=== PATIENT | female | born 1955 | race Caucasian/White ===

== ENCOUNTER → 2017-01-31 | Outpatient (CLI) | payer OTHER ==
[~2017-01-31] MED LIST: ALDACTONE PO; ALDACTONE25 MG PO; ASPIRIN81 M2 PO; BUMETANIDE2 M1 PO; BUMEX2 MG PO; CALCIUM STOOL240 M1 PO; CARDIZEM CD240 M2 PO; CARTIA XT240 M1 PO; DESENEX45 G1 EXT; DILTIAZEM 24HR240 M1 PO; DILTIAZEM 24HR240 M2 PO; DOXYCYCLINE HYC50 M1 PO; EFFEXOR PO; FERRO-TIME325 MG PO; FLAGYL250 M1 PO; FLEXERIL10 MG PO; GLYXAMBI 10 MG1 EACH; HUMULIN R100 U/ML SUBQ; HUMULIN R500 U/ML SUBQ; LASIX PO; LEVAQUIN750 M1 PO; LEVEMIR FL100 UNIT/1 SUBQ; LEVEMIR100 UNITS/ SUBQ; LOPRESSOR PO; MACROBID100 MG PO; METOLAZONE5 MG PO; METOPROLOL SUCC25 MG PO; METOPROLOL TART25 MG PO; NEURONTIN100 MG PO; OMEPRAZOLE20 M2 PO; OXYCODON HCL-1 UDTAB PO; OXYCODONE-ACET1 EAC1 PO; OXYMORPHONE HCL10 M1 PO; PATIENT'S PHARMACY; PERCOCET 10/3251 TAB PO; PRILOSEC2.5 MG PO; PRILOSEC20 M1 PO; PROTONIX PO; REGLAN10 MG; REGLAN10 MG PO; SEROQUEL PO; STOOL SOFTENER1 EAC1 PO; TRADJENTA5 MG PO; TYLENOL325 M1 PO; VENLAFAXINE HC150 M1 PO; VENLAFAXINE HC150 MG PO; VENLAFAXINE HCL75 MG PO; ZOFRANODT PO
--- NOTE | ~2017-01-31 | MY11 ---
[facility] A Service of [facility] & [facility] RADIOLOGY TEXT RESULTS PATIENT: DAISY MILES LOCATION: [facility] : [birth year] UNIT #: [id number] AGE: [address]: Irina Mclean MD SEX: F ORDER DR: [id number] [address] [address] [id number] MR#: [id number] Acc #: [id number] NAME: DAISY MILES : 1955 SEX: F STUDY DATE/TIME: 01/31/2017 10:53 UNIT: [facility] ROOM: STUDY DESCRIPTION: MY Mammogram Screening Dig Quan Attending Physician: Irina Mclean M.D. Referring Physician: Irina Mclean M.D. Ordering Physician: Irina Mclean M.D. Primary Care Physician: Irina Mclean M.D. MEDICAL IMAGING REPORT This report is preliminary unless electronic signature is present. EXAM Bilateral digital screening mammogram with CAD 01/31/2017 INDICATIONS 61-year-old female for routine screening. No reported problems and no personal or family history of breast cancer. No surgeries. CC and MLO views of the breasts were obtained and reviewed with an FDA approved CAD device. COMPARISON STUDIES The patient reports a prior mammogram years ago at the [facility] but that facility closed many years ago. No comparisons are available. This will serve as a new baseline. FINDINGS Breast parenchyma is composed of scattered fibroglandular densities. The pattern is symmetric. A cleavage view was also performed. There is no dominant nodule or mass in either breast. No suspicious cluster of microcalcifications. Faint benign-appearing calcifications are present. Tiny calcified fibroadenoma in the 9 o'clock position of the right breast. Tortuous vessels are present in the left greater than right breast, 1 of which simulates a pseudo nodule on the left. Benign axillary nodes are present bilaterally. A repeat screening mammogram is recommended in 1 year. IMPRESSION Benign screening mammogram, 1 year followup recommended. BIRADS II Patients over the age of 40 are entered into a reminder system with target due date for the next mammogram. A result letter will also be sent to the patient. [facility] A Service of [facility] & [facility] RADIOLOGY TEXT RESULTS PATIENT: DAISY MILES LOCATION: [facility] : [birth year] UNIT #: [id number] AGE: [address]: Irina Mclean MD SEX: F ORDER DR: BIRADS: 2 - Benign finding Dictated by... Oneal Cole M.D. THIS IS AN ELECTRONICALLY VERIFIED REPORT Oneal Cole M.D. at 01/31/2017 4:15 PM Ilsa TD: 01/31/2017 16:06 JOB #: [id number] MEDICAL IMAGING REPORT
== END | disposition home or self-care (01) ==
LOC: SMAM 10:15
DX: Z12.31 Encounter for screening mammogram for malignant neoplasm of breast (principal)
CPT/HCPCS: G0202

== ENCOUNTER 2017-03-14 17:27 | Inpatient (IN) | payer OTHER ==
--- NOTE | ~2017-03-14 | HP ---
Unit #: [id number] #: [id number] Patient: DAISY MILES [id number] [place], [place] [address] [id number] I MR#: [id number] NAME: DAISY MILES. ROOM: [facility] Age: 62 Sex: F Admission Date: 03/14/2017 : 1955 Attending Physician: Shabana Quigley M.D. Primary Care Physician: Irina Mclean M.D. HISTORY AND PHYSICAL CHIEF COMPLAINT Symptomatic anemia. HISTORY OF PRESENT ILLNESS The patient is a 62-year-old female with a past medical history of esophageal varices, probable nonalcoholic steatohepatitis, diabetes, coronary artery disease, CHF, hypertension, seizures, meningioma, pulmonary hypertension, COPD, gastroparesis, and tobacco abuse, who was admitted from the primary care physician's office for evaluation of the above. The patient states that she has had a one-week history of increasing generalized weakness. She states that she has felt intermittently dizzy. She states that she has not fallen, nor has she had any syncopal episode. She denies any chest pain and no shortness of breath. She states that she has constipation. Her last bowel movement was this morning. She has noticed that her stool has been intermittently black for the past couple of days. She also reports abdominal pain in the upper abdomen that she describes as "burning." It has been intermittent in nature. She denies any vomiting. The patient saw her primary care physician today. Hemoglobin was noted to be 10. It was 12.6 on January 26, 2017, per my discussion with the primary care physician's office. She was sent to [facility] for admission and further workup. PAST MEDICAL HISTORY 1. Admission to [facility] June 27-2015, for acute blood loss anemia. She underwent EGD during that admission that showed early varices and hypertensive gastropathy. 2. Esophageal varices thought to be secondary to nonalcoholic steatohepatitis. The patient has seen Dr. Harry in the past. 3. Coronary artery disease followed by Dr. Wilder. 4. Congestive heart failure with unknown ejection fraction. 5. Hypertension. 6. Diabetes. 7. Seizure following meningioma removal. The patient denies any seizures for the past more than 10 years. She is not on antiepileptic medication. 8. Meningioma, status post excision. 9. Pulmonary hypertension. 10. Chronic obstructive pulmonary disease with continued tobacco abuse. PAST SURGICAL HISTORY Unit #: [id number] #: [id number] Patient: DAISY MILES 1. Cardiac catheterization. 2. EGD and colonoscopy. The most recent EGD was in June 2016 and showed early varices and hypertensive gastropathy. 3. Appendectomy. 4. Cholecystectomy. 5. Right knee replacement. 6. Meningioma removal. SOCIAL HISTORY The patient lives with her mother and sister. She continues to smoke a pack of cigarettes daily. She denies alcohol use. Her code status is a Full Code. FAMILY HISTORY Notable for her mother having hypertension. ALLERGIES Cephalosporin and latex. HOME MEDICATIONS Per the Discharge Summary from June 2016: 1. Iron 325 daily. 2. Metoclopramide 10 mg t.i.d. 3. Aspirin 81 mg daily. 4. Spironolactone 25 mg daily. 5. Protonix 40 mg twice daily. 6. Flexeril 10 mg at bedtime. 7. Venlafaxine 150 mg b.i.d. 8. Diltiazem 240 mg daily. 9. Metoprolol 25 mg b.i.d. 10. Bumex 2 mg b.i.d. 11. Metolazone 5 mg daily. 12. Insulin. The patient states that she was on Humulin R 30 units with meals. The patient states that she has not been taking insulin for approximately a year. Home medications will need to be reviewed and verified. REVIEW OF SYSTEMS A complete review of systems is negative except as indicated in the History of Present Illness. The patient states that she does not routinely check her blood sugars. She is no longer seeing Dr. Osuna. She stopped taking her insulin about a year ago. She states that her weight fluctuates between 230 and 250 pounds. She has had intermittent swelling of the legs. PHYSICAL EXAMINATION VITAL SIGNS: Temperature 97.5, blood pressure 152/93, and respirations 18. GENERAL: Patient is a female who is awake, alert, and in no acute distress. HEENT: Head is atraumatic. Mucous membranes are moist. NECK: Supple. Trachea is midline. CARDIOVASCULAR: Regular rate and rhythm. LUNGS: Clear to auscultation bilaterally with no increased work of breathing. ABDOMEN: Soft. She is mildly tender to palpation in the epigastric area. Bowel sounds are present in all four quadrants. EXTREMITIES: Nontender with no pedal edema. Unit #: [id number] #: [id number] Patient: DAISY MILES NEUROLOGIC: Patient is awake and alert. She is oriented x3. She follows commands. PSYCHIATRIC: Mood and affect are normal. Patient is cooperative. SKIN: Skin of examined areas is warm and dry. DIAGNOSTIC STUDIES LABORATORY: Hemoglobin per my conversation with the primary care physician's office is 10. Labs here are pending. She did have an Accu-Chek that was 533. ASSESSMENT The patient is a 62-year-old female with: 1. Symptomatic anemia. The patient's hemoglobin was 10 in the primary care physician's office and had dropped from 12.6 on January 26 per my discussion with them. 2. Gastrointestinal bleed. 3. History of esophageal varices with last EGD in June 2016 showing early varices and hypertensive gastropathy. 4. Likely nonalcoholic steatohepatitis. 5. Uncontrolled diabetes with an Accu-Chek of 533. The patient has not been taking insulin for the past year, nor has she been checking her blood sugars at home. 6. Weight loss. 7. History of coronary artery disease. 8. Congestive heart failure with unknown ejection fraction. 9. Hypertension. 10. History of seizures, not on antiepileptic medication. 11. Meningioma, status post excision. 12. Pulmonary hypertension. 13. Chronic obstructive pulmonary disease with continued tobacco abuse. 14. Gastroparesis. PLAN 1. Admit for observation to intermediate level. 2. Clear liquid diet. 3. Normal saline at 75 mL/hour. 4. Protonix 80 mg IV x1, followed by Protonix drip at 8 mg/hour. 5. Octreotide 50 mcg IV x1, followed by octreotide drip at 50 mcg/hour. 6. Hemoccult stool. 7. Stat labs including CBC, comprehensive metabolic panel, and INR. 8. Hemoglobin and hematocrit q.6 hours. Will plan to transfuse for hemoglobin less than 8 due to history of coronary artery disease. 9. Hemoglobin A1c. 10. Medium-dose sliding scale insulin. 11. Levemir 10 units subcutaneous daily with first dose now. 12. Accu-Cheks. 13. TSH. 14. EKG and cardiac enzymes. 15. Supplemental oxygen. 16. P.r.n. DuoNebs. 17. Check urinalysis. 18. Consult Dr. Harry regarding symptomatic anemia and history of esophageal varices. 19. P.r.n. Zofran. 20. SCDs for DVT prophylaxis. 21. Repeat labs in the morning. 22. Regarding code status, the patient is a Full Code. 1. Unit #: [id number] #: [id number] Patient: DAISY MILES Dictated by Nazanin Donovan/alie TD: 03/14/2017 19:50 JOB #: [id number] HISTORY AND PHYSICAL Page 1 of 1 X Shabana Quigley MD HISTORY AND PHYSICAL
--- NOTE | ~2017-03-14 | CO ---
Unit #: [id number] #: [id number] Patient: DAISY MILES [id number] [address] [id number] I MR#: [id number] NAME: DAISY MILES. ROOM: [facility] Age: 62 Sex: F Admission Date: 03/14/2017 : 1955 Attending Physician: Joaquina Dubois M.D. Primary Care Physician: Irina Mclean M.D. Consultation Date: 03/15/2017 CONSULTATION REPORT REASON FOR CONSULTATION Anemia of GI blood loss in a patient with underlying history of PRUETT related cirrhosis and esophageal varices. HISTORY OF PRESENT ILLNESS Ms. Miles is a very pleasant 62-year-old white woman with a previous history of esophageal varices secondary to cirrhosis from PRUETT. She also has a background history of diabetes, congestive heart failure, coronary artery disease, chronic obstructive pulmonary disease and seizure disorder. She was admitted from Dr. Mclean' office for symptomatic anemia. She reports profound fatigue along with nausea, vomiting and upper abdominal pain for the past five days. She has had intermittent black stools without hematemesis or hematochezia. Her hemoglobin dropped from 11.9 to 7.5. PAST MEDICAL HISTORY 1. Type 2 diabetes. 2. Hypertension. 3. Congestive heart failure. 4. Coronary artery disease. 5. Seizure disorder after removal of meningioma. 6. Pulmonary hypertension. 7. Chronic respiratory failure on 2 liters nasal cannula home oxygen. 8. Chronic obstructive pulmonary disease. 9. Esophageal varices. PAST SURGICAL HISTORY 1. Appendectomy. 2. Cholecystectomy. 3. Right total knee replacement. 4. Removal or meningioma. 5. Heart catheterization. SOCIAL HISTORY The patient smokes a pack of cigarettes daily. She does not use alcohol. FAMILY HISTORY Significant for her mother having had hypertension. No family history of colon or pancreatic cancer or other disease. ALLERGIES Latex and cephalosporins. HOME MEDICATIONS Unit #: [id number] #: [id number] Patient: DAISY MILES Reviewed and included 1. Coumadin. 2. Aldactone. 3. Venlafaxine. 4. Reglan. 5. Metolazone. 6. Aspirin. 7. Metoprolol. 8. Omeprazole. 9. Flaxseed. 10. Bumex. REVIEW OF SYSTEMS Detailed review of organ systems does not reveal any recent weight loss. No history of fever, chills or rigors. Seizure. Chest pain or syncope. There is a history of profound fatigue. No history of cough, expectoration or hemoptysis. No history of dysuria, hematuria or history of focal seizures or extremity weakness. PHYSICAL EXAMINATION GENERAL: Awake, alert and oriented. Obese. VITALS: Stable with temperature 98.4, pulse 143/75. She has basal sounds tachycardia at 112, respiratory rate 18. HEENT: Moderate pallor. No icterus or lymphadenopathy. LUNGS: Normal breath sounds. Good air entry. HEART: Normal heart sounds. No murmurs auscultated. ABDOMEN: Soft and nontender. Liver and spleen are not palpable. Bowel sounds are normal. EXTREMITIES: Grade 1 pitting peripheral edema. DIAGNOSTIC STUDIES LABORATORY: Hemoglobin has dropped from baseline of 11.9 to 7.5, BUN 17, creatinine 0.4, albumin 2.5. LFTs are normal. INR is 1.1. ASSESSMENT Patient with significant anemia, most likely of GI blood loss. Underlying history of varices with PRUETT related to cirrhosis and history of multiple cardiorespiratory comorbid problems that are enumerated under the past medical history. PLAN The patient will be transfused two units of packed cells and will check her stool studies for occult blood. Repeat CBC, CMP, amylase and lipase in the morning along with serum iron studies. She will be kept n.p.o. after midnight and will undergo upper endoscopy first thing in the morning. The pros and cons of the procedure and potential risks and complications were discussed with the patient and she was reassured. Thank you for asking me to see this pleasant patient in consultation. Dictated by... Nazanin Jurado/cruzito TD: 04/19/2017 08:21 Unit #: [id number] #: [id number] Patient: DAISY MILES JOB #: [id number] CC: Nazanin Donovan M.D. CONSULTATION REPORT Page 1 of 1 X Daniel Harry MD X CONSULTATION REPORT
--- NOTE | ~2017-03-14 | A ---
[facility] Nutrition Therapy DATE: 03/15/17 Patient: DAISY MILES Physician: IRENE Address: [address] [facility] Room/Bed: [address] [place] [address], Zip: [place] [address] Admit Date: 03/14/17 Date of : [birth year] Height: 5 4 Weight: 234 106.2 NUTRITIONAL ASSESSMENT: REASON: CONSULT RE: WT FLUCTUATES 232-250# AND DIABETIC, ALSO 4 PTS NUTRITION SCREEN RISK RE: 18# WEIGHT LOSS AND EATING POORLY, AND FOR HIGH BMI DOCUMENTATION 62 yo female admitted for symptomatic anemia PMH: EGD in 2016 revealing early varices and hypertensive gastrophy, esophageal varices, probable PRUETT cirrhosis, DM, CAD, CHF, HTN, seizures, COPD, pulmonary HTN, gastroparesis, cholecystectomy Anthropometrics: Ht: 64" Wt: 106.2 kg BMI: 40.2 Labs: Gluc 231 Creat 0.4 Ca++ 7.9 Alb 2.5 Accuchecks 232 HgbA1C 12.2 Meds: Levemir, Colace, lopressor, zofran, novolog, protonix, bumetanide, NaCl, D5%, reglan I/O & Bowel function: 03/13, n/v Skin Integrity: Scar left knee Redness/rash under breasts/ abdominal folds Edema: None noted Diet: Clear liquid Assessment: Chart reviewed, events noted. 62 yo female admitted for GI bleed/ symptomatic anemia with h/o esophageal varices, PRUETT cirrhosis, DM, CHF with other notable disease states as listed above. RD spoke with the pt at bedside. Pt stated that she was very nauseated, and was not able to provide much information due to this. Pt was able to report that her weight fluctuates between 232-250#, and that she has lost weight recently (18# noted in RD consult). Pt also reported very minimal intake of clear liquids. Pt was unsure whether her weight fluctuation is due to fluid, which could be the case due to her PMH, PRUETT cirrhosis, CHF; however, no edema was noted in admission/ shift assessments. RD briefly explained the importance of adequate nutrition and diet related to her PMH/ Dx. Pt preferred that RD return for diet education, as she grabbed the emesis bag and appeared very nauseated. RD left information regarding cirrhosis/ DM/ gastroparesis diets. RD will order Ensure clear for supplemental nutrition and follow up. Dx: Inadequate protein-energy intake RT clinical condition, PMH AEB clear liquid diet, n/v. Intervention: [facility] Nutrition Therapy DATE: 03/15/17 Patient: DAISY MILES Physician: IRENE Address: [address] [place] [address] Room/Bed: [address] [place] [address], Zip: [place] [address] Admit Date: 03/14/17 Date of : [birth year] Height: 5 4 Weight: 234 106.2 1. Clear liquid diet- advance as tolerated 2. Ensure Clear BID Monitoring, Evaluation and Goals: 1. Oral intake; tolerate >50-75% of meals and supplements 2. Labs; WNL: glucose, electrolytes 3. Weight; preserve lean body mass, prevent unintentional weight loss 4. GI; promote regular GI function Recommendations: 1. Continue clear liquid diet as tolerated. 2. Ensure clear BID for supplemental nutrition while the pt remains on clear liquid diet. 3. Once medically feasible if the pt continually tolerates clear liquids without symptoms of intolerance, advance to a low fat/ 2 gram sodium / consistent carbohydrate diet with 6 small meals (small, frequent meals). 4. Appreciate staff encouraging adequate PO intake as needed. Pt is at moderate nutritional risk. RD will follow hospital course. Respectfully, RAFA MANN RD, LD Food and Nutritional Services [facility] cc: client file
--- NOTE | ~2017-03-14 | OR ---
Unit #: [id number] #: [id number] Patient: DAISY MILES [id number] [address] [place], [place] [address] [id number] I MR#: [id number] NAME: DAISY MILES ROOM: [facility] Date of Procedure: 03/16/2017 Admission Date: 03/14/2017 Surgeon: Daniel Harry M.D. : 1955 Attending Physician: Joaquina Dubois M.D. Primary Care Physician: Irina Mclean M.D. OPERATIVE REPORT PRIMARY CARE PHYSICIAN Irina Mclean M.D. PREOPERATIVE DIAGNOSES Gastrointestinal bleed, anemia of acute gastrointestinal blood loss. PROCEDURES PERFORMED Upper gastrointestinal endoscopy and esophageal variceal band ligation. POSTOPERATIVE DIAGNOSES 1. The patient had esophageal varices with stigmata of recent bleed in the form of hemocytoblastic spots. The largest of these varices was then treated using rubber band ligation. 2. There were changes of portal hypertensive gastropathy involving the fundic mucosa. 3. Rest of the examination up to third part of duodenum was normal. There were no active bleeding noted in the entire upper gastrointestinal tract. RECOMMENDATIONS 1. Discontinue intravenous Protonix infusion and octreotide infusions. 2. The patient will be started on 1800 calorie CCD diet. 3. CBC and CMP in a.m. labs. 4. She can be discharged home tomorrow morning. SEDATION USED MAC. DESCRIPTION OF PROCEDURE Following detailed explanation of potential risks and complications of an upper endoscopy, namely perforation, bleeding, complication related to sedation, the patient was brought to GI lab and laid in the left lateral decubitus position. Lubricated tip of the Olympus video upper endoscope was passed through the bite block into the proximal esophagus under direct vision. The entire esophageal mucosa was examined. The patient was noted to have esophageal varices. One of these was larger than the others and had also hemocytoblastic or cowan-red spots just at the GE junction. The scope was then advanced into the gastric cavity and the latter was insufflated. Mucosa of the fundus, body, and antrum examined and changes of portal hypertensive gastropathy were seen in the fundic mucosa. The prepyloric antral area appeared normal. Pylorus was intubated with visualization of normal duodenal bulb and second and third part of the Unit #: [id number] #: [id number] Patient: DAISY MILES duodenum. Upon withdrawal and retroflexion, incisura, cardia, and greater curve were examined and no additional findings noted. The scope was then withdrawn in the distal esophagus. The entire esophageal mucosa was examined all the way up to pharynx. No additional findings noted. A rapid shooter band ligator assembly was mounted on the scope tip and the patient was reintubated. The largest of the 3 varices that were seen was then treated using rubber band ligation. Excellent hemostasis was achieved and photodocumentation was obtained. The scope and the accessories were then withdrawn and the patient returned to the recovery area. She tolerated the procedure without any postprocedure complications. Dictated by... Nazanin Jurado/tani TD: 03/18/2017 07:33 JOB #: [id number] OPERATIVE REPORT Page 1 of 1 X Daniel Harry MD X PROCEDURE OPERATIVE NOTE
--- NOTE | ~2017-03-14 | EKG ---
PATIENT: DAISY MILES UNIT #: [id number] Ventricular Rate: 102 BPM Atrial Rate: 102 BPM P-R Interval: 160 ms QRS Duration: 116 ms Q-T Interval: 374 ms QTC Calculation(Bezet): 487 ms P Waterfall: 49 degrees Calculated R Waterfall: -45 degrees Calculated T Waterfall: 55 degrees Diagnosis Line: Sinus tachycardia Diagnosis Line: Left anterior fascicular block Diagnosis Line: Left ventricular hypertrophy with QRS widening Diagnosis Line: Abnormal ECG Diagnosis Line: When compared with ECG of 27-JUN-2016 13:21, Diagnosis Line: No significant change was found Diagnosis Line: Confirmed by NETTA AMEZQUITA MD ([id number]) on 03/14/2017 Diagnosis Line: 10:39:43 PM INTERPRETING MD: ALIRIO CANTU
--- NOTE | ~2017-03-14 | DS ---
Unit #: [id number] #: [id number] Patient: DAISY MILES [id number] [address] [address] [id number] I MR#: [id number] NAME: DAISY MILES. ROOM: [facility] Age: 62 Sex: F Admission Date: 03/14/2017 : 1955 Discharge Date: Attending Physician: Joaquina Dubois M.D. Primary Care Physician: Irina Mclean M.D. DISCHARGE SUMMARY DISCHARGE DIAGNOSES 1. Symptomatic anemia, secondary to acute blood loss. 2. Gastrointestinal bleed. 3. Esophageal varices on esophagogastroduodenoscopy. 4. Hypertensive gastropathy. 5. Coronary artery disease. 6. Chronic diastolic heart failure. Echocardiogram not available. 7. Hypertension. 8. Diabetes mellitus type 2, uncontrolled. 9. Seizure following meningioma removal. 10. History of meningioma status post excision. 11. Pulmonary hypertension. 12. Chronic obstructive pulmonary disease, stable. 13. Smoking. 14. Hypokalemia. 15. Hypocalcemia. 16. Mild protein malnutrition. CONSULTATION Dr. Daniel Harry. PROCEDURE The patient had EGD which shows esophageal varices with stigmata of recent bleed. No active bleeding. Portal hypertension and gastropathy present. DIAGNOSTIC STUDIES LABORATORY: Hemoglobin 8.4. Glucose 164, sodium 135, potassium 3.2, creatinine 0.5. AST 30, ALT 22, alkaline phosphatase 118, total bilirubin 0.5, albumin 2.7. Occult blood negative. ALLERGIES Cephalosporins and latex. DISCHARGE MEDICATIONS 1. Effexor XR 150 p.o. b.i.d. 2. Zofran 4 mg q.4 p.r.n. nausea. 3. Cardizem CD 240 mg 24 hour p.o. daily. 4. Metoprolol 25 p.o. b.i.d. 5. Colace 200 p.o. daily. 6. Tradjenta 5 mg p.o. daily. 7. Bumex 2 mg p.o. daily p.r.n. swelling. 8. Reglan 10 mg before meals three times daily. 9. Aspirin 81 daily. 10. Protonix 40 p.o. b.i.d. Unit #: [id number] #: [id number] Patient: DAISY MILES 11. Flexeril 10 mg at bedtime. HOSPITALIZATION COURSE A 62 year old admitted because of severe nausea and vomiting. GI bleed, secondary to acute blood loss: Esophageal varices found in EGD. Patient received blood transfusion. Currently, hemoglobin 8.3. No active bleeding. Anemia, secondary to acute blood loss: Patient received blood transfusion. Hemoglobin 8.3. Follow with Dr. Daniel Harry as an outpatient. Hypokalemia: Replace with p.o. potassium. Esophageal varices, status post EGD: Patient does have portal hypertensive gastropathy. Follow with GI as an outpatient. Diabetes mellitus type 2: Uncontrolled. Continue with her Tradjenta. Hypertension: Well controlled. Continue with Cardizem and metoprolol. DISPOSITION Patient will be discharged home. FOLLOWUP 1. Follow with family physician in one week time. 2. Follow with Dr. Daniel Harry in three weeks' time. Dictated by... Nazanin Noonan TD: 03/17/2017 10:54 JOB #: [id number] DISCHARGE SUMMARY Page 1 of 1 X Joaquina Dubois MD X DISCHARGE SUMMARY
[~2017-03-14 17:27] MED LIST changes: -ALDACTONE PO; -BUMEX2 MG PO; -CALCIUM STOOL240 M1 PO; -CARTIA XT240 M1 PO; -DESENEX45 G1 EXT; -DOXYCYCLINE HYC50 M1 PO; -EFFEXOR PO; -LASIX PO; -LEVEMIR FL100 UNIT/1 SUBQ; -LEVEMIR100 UNITS/ SUBQ; -LOPRESSOR PO; -NEURONTIN100 MG PO; -OXYCODONE-ACET1 EAC1 PO; -OXYMORPHONE HCL10 M1 PO; -PATIENT'S PHARMACY; -SEROQUEL PO; -STOOL SOFTENER1 EAC1 PO; -TRADJENTA5 MG PO; -TYLENOL325 M1 PO; -ZOFRANODT PO
[2017-03-14] MEDS ORDERED: BUMEX2 MG PO (18:12)
[2017-03-14] MEDS ORDERED: VENLAFAXINE HC150 MG PO (18:14)
[2017-03-14] MEDS ORDERED: CARTIA XT240 M1 PO (18:15)
[2017-03-14] MEDS ORDERED: TRADJENTA5 MG PO (18:17)
[2017-03-14] MEDS ORDERED: PROTONIX PO (18:18)
[2017-03-14] MEDS ORDERED: STOOL SOFTENER1 EAC1 PO (18:20)
[2017-03-14 18:53] LABS: URINE SOURCE CLEAN CATCH
[2017-03-14 18:56] LABS: URINE APPEARANCE CLEAR; URINE BILIRUBIN NEG (NEG); URINE BLOOD 1+ (NEG); URINE COLOR YELLOW; URINE GLUCOSE >1000 MG/DL (NEG); URINE KETONE NEG (NEG); URINE LEUKOCYTE ESTERASE NEG (NEG); URINE NITRATE NEG (NEG); URINE PH 6.5 (5-8); URINE PROTEIN NEG (NEG); URINE SPECIFIC GRAVITY 1.039 (1.003-1.035); URINE UROBILINOGEN 0.2 MG/DL (NEG)
[2017-03-14 18:59] LABS: URBCS1 AUWI 0-2 /[HPF] (0-2); URINE BACTERIA AUWI NEG (NEGATIVE); URINE SQUAMOUS EPITHELIAL CELL NONE SEEN /[HPF]; UWBCS1 AUWI 0-2 (0-5)
[2017-03-14 19:00] LABS: HEMOGLOBIN 9.7 gm/dL (12.0-16.0); MEAN CELL VOLUME 80.4 FL (83-96); MEAN CORPUSCULAR HEMOGLOBIN 25.3 PG (28-34); MEAN CORPUSCULAR HGB CONC 31.4 g/dL (30-36); MEAN PLATELET VOLUME 8.7 FL (6.5-11.5); RED BLOOD COUNT 3.85 X10e (3.90-5.30); RED CELL DISTRIBUTION WIDTH 16.1 % (11.0-15.5)
[2017-03-14 19:08] LABS: CULTURE INDICATED? NO
[2017-03-14 19:11] LABS: INR 1.1; PROTHROMBIN TIME (PATIENT) 11.8 SECONDS (9.6-11.5)
[2017-03-14 19:43] LABS: BILIRUBIN,TOTAL 0.3 mg/dL (0.2-2.0); CALCIUM SERUM 8.4 mg/dL (8.4-10.2); CREATININE SERUM 0.6 mg/dL (0.6-1.4); GLOM FILT RATE Estimated 99.1 mL/min (>60); PROTEIN TOTAL SERUM 7.2 g/dL (6.0-8.3)
[2017-03-15 00:49] LABS: HEMATOCRIT 27.3 % (35.0-45.0); HEMOGLOBIN 8.8 gm/dL (12.0-16.0)
[2017-03-15 01:24] LABS: CK TOTAL 20 IU/L (26-140)
[2017-03-15 04:31] LABS: INR 1.1; PROTHROMBIN TIME (PATIENT) 11.6 SECONDS (9.6-11.5)
[2017-03-15 04:52] LABS: BUN/CREATININE RATIO 42.5; CALCIUM SERUM 7.9 mg/dL (8.4-10.2); CREATININE SERUM 0.4 mg/dL (0.6-1.4); GLOM FILT RATE Estimated 113.2 mL/min (>60); POTASSIUM 3.8 mmol/L (3.5-5.1); PROTEIN TOTAL SERUM 6.1 g/dL (6.0-8.3)
[2017-03-15 04:53] LABS: ALBUMIN SERUM 2.5 g/dL (3.5-5.0); BILIRUBIN,TOTAL 0.5 mg/dL (0.2-2.0)
[2017-03-15 07:23] LABS: HEMATOCRIT 23.5 % (35.0-45.0); HEMOGLOBIN 7.6 gm/dL (12.0-16.0); MEAN CELL VOLUME 79.1 FL (83-96); MEAN CORPUSCULAR HEMOGLOBIN 25.6 PG (28-34); MEAN CORPUSCULAR HGB CONC 32.4 g/dL (30-36); MEAN PLATELET VOLUME 8.8 FL (6.5-11.5); RED BLOOD COUNT 2.97 X10e (3.90-5.30); RED CELL DISTRIBUTION WIDTH 16.4 % (11.0-15.5); WHITE BLOOD COUNT 10.2 X10e3 (4.0-10.5)
[2017-03-15 07:32] LABS: CK TOTAL 22 IU/L (26-140)
[2017-03-15 12:34] LABS: HEMATOCRIT 23.3 % (35.0-45.0); HEMOGLOBIN 7.5 gm/dL (12.0-16.0)
[2017-03-15 23:12] LABS: HEMATOCRIT 27.5 % (35.0-45.0)
[2017-03-16 04:35] LABS: BASOPHIL# 0.1 X10e3 (0-0.3); BASOPHIL% 1.2 % (0-2.5); EOSINOPHIL# 0.1 X10e3 (0-0.7); EOSINOPHIL% 1.3 % (0.0-7.0); HEMATOCRIT 26.3 % (35.0-45.0); HEMOGLOBIN 8.5 gm/dL (12.0-16.0); LYMPHOCYTE# 3.3 X10e3 (1.0-3.5); LYMPHOCYTE% 39.8 % (17.0-45.0); MEAN CORPUSCULAR HGB CONC 32.5 g/dL (30-36); MEAN PLATELET VOLUME 8.9 FL (6.5-11.5); MONOCYTE# 0.7 X10e3 (0-1.0); MONOCYTE% 8.9 % (3.0-12.0); NEUTROPHIL% 48.8 % (40-75); PLATELET COUNT 190 X10e3 (140-420); RED BLOOD COUNT 3.28 X10e (3.90-5.30); WHITE BLOOD COUNT 8.2 X10e3 (4.0-10.5)
[2017-03-16 04:41] LABS: DIFF IND NO
[2017-03-16 04:57] LABS: ALBUMIN SERUM 2.7 g/dL (3.5-5.0); BILIRUBIN,TOTAL 0.6 mg/dL (0.2-2.0); BUN/CREATININE RATIO 27.5; CALCIUM SERUM 7.9 mg/dL (8.4-10.2); CREATININE SERUM 0.4 mg/dL (0.6-1.4); GLOM FILT RATE Estimated 113.2 mL/min (>60); POTASSIUM 3.4 mmol/L (3.5-5.1); PROTEIN TOTAL SERUM 6.8 g/dL (6.0-8.3)
[2017-03-16 10:23] LABS: HEMOGLOBIN 8.5 gm/dL (12.0-16.0)
[2017-03-16 18:18] LABS: HEMATOCRIT 29.5 % (35.0-45.0); HEMOGLOBIN 9.5 gm/dL (12.0-16.0)
[2017-03-16 22:23] LABS: HEMATOCRIT 24.9 % (35.0-45.0); HEMOGLOBIN 8.1 gm/dL (12.0-16.0)
[2017-03-17 07:18] LABS: HEMATOCRIT 25.3 % (35.0-45.0); HEMOGLOBIN 8.3 gm/dL (12.0-16.0); MEAN CELL VOLUME 80.8 FL (83-96); MEAN CORPUSCULAR HEMOGLOBIN 26.6 PG (28-34); MEAN CORPUSCULAR HGB CONC 32.9 g/dL (30-36); MEAN PLATELET VOLUME 9.1 FL (6.5-11.5); RED BLOOD COUNT 3.14 X10e (3.90-5.30); RED CELL DISTRIBUTION WIDTH 16.4 % (11.0-15.5); WHITE BLOOD COUNT 7.9 X10e3 (4.0-10.5)
[2017-03-17 07:53] LABS: ALBUMIN SERUM 2.7 g/dL (3.5-5.0); BILIRUBIN,TOTAL 0.5 mg/dL (0.2-2.0); CALCIUM SERUM 7.7 mg/dL (8.4-10.2); CREATININE SERUM 0.5 mg/dL (0.6-1.4); GLOM FILT RATE Estimated 105.2 mL/min (>60); POTASSIUM 3.2 mmol/L (3.5-5.1); PROTEIN TOTAL SERUM 6.6 g/dL (6.0-8.3)
[2017-03-17 10:04] LABS: HEMATOCRIT 25.5 % (35.0-45.0); HEMOGLOBIN 8.4 gm/dL (12.0-16.0)
[2017-03-17] MEDS ORDERED: CALCIUM STOOL240 M1 PO (11:50)
[2017-03-17] MEDS ORDERED: ZOFRANODT PO (11:51)
== END 2017-03-17 12:25 | disposition home or self-care (01) | DRG 432 ==
LOC: CEDOF 17:27 → C3A PCU 18:15
PROVIDERS: Family Medicine; Internal Medicine; Internal Medicine Gastroenterology
PROC: 30233N1 Transfusion of Nonautologous Red Blood Cells into Peripheral Vein, Percutaneous Approach (ICD-10-PCS; 2017-03-15)
PROC: 06L34CZ Occlusion of Esophageal Vein with Extraluminal Device, Percutaneous Endoscopic Approach (ICD-10-PCS; principal; 2017-03-16 14:30)
PROC: 0DJ08ZZ Inspection of Upper Intestinal Tract, Via Natural or Artificial Opening Endoscopic (ICD-10-PCS; 2017-03-16 14:30)
DX: K74.60 Unspecified cirrhosis of liver (principal); I85.11 Secondary esophageal varices with bleeding; E11.43 Type 2 diabetes mellitus with diabetic autonomic (poly)neuropathy; K31.84 Gastroparesis; E44.0 Moderate protein-calorie malnutrition; D62 Acute posthemorrhagic anemia; I11.0 Hypertensive heart disease with heart failure; I50.32 Chronic diastolic (congestive) heart failure; E11.65 Type 2 diabetes mellitus with hyperglycemia; I27.2 Other secondary pulmonary hypertension; Z68.41 Body mass index [BMI] 40.0-44.9, adult; K31.9 Disease of stomach and duodenum, unspecified; I25.10 Atherosclerotic heart disease of native coronary artery without angina pectoris; F17.210 Nicotine dependence, cigarettes, uncomplicated; Z79.4 Long term (current) use of insulin; J44.9 Chronic obstructive pulmonary disease, unspecified; K75.81 Nonalcoholic steatohepatitis (NASH); Z90.49 Acquired absence of other specified parts of digestive tract; M06.9 Rheumatoid arthritis, unspecified; Z96.651 Presence of right artificial knee joint; Z82.49 Family history of ischemic heart disease and other diseases of the circulatory system; Z79.82 Long term (current) use of aspirin
CPT/HCPCS: 80053; 81003; 82150; 82274; 82550; 82728; 82947; 83036; 83540; 83690; 84443; 84484; 85014; 85018; 85025; 85027; 85610; 86850; 86900; 86901; 86923; 93005; 94760; C9113; J1815; J2270; J2354; J2405; J2550; J2765; J3490; P9016

== ENCOUNTER 2017-06-04 08:52 | Inpatient (IN) | payer OTHER ==
[~2017-06-04] VITALS: Ht 162.6 cm; Wt 121.3 kg
--- NOTE | ~2017-06-04 | CR72 ---
[facility] A Service of [facility] & [facility] RADIOLOGY TEXT RESULTS PATIENT: DAISY MILES LOCATION: [place] [address] : [birth year] UNIT #: [id number] AGE: [address]: Joaquina Dubois MD SEX: F ORDER DR: [id number] [facility] [address] [place], [place] [address] [id number] I MR#: [id number] #: [id number] NAME: DAISY MILES : 1955 SEX: F STUDY DATE/TIME: 06/09/2017 5:34 UNIT: [facility] ROOM: [facility] STUDY DESCRIPTION: CR Chest Single View Portable Attending Physician: Joaquina Dubois M.D. Ordering Physician: Chuck Fernando M.D. Primary Care Physician: Irina Mclean M.D. MEDICAL IMAGING REPORT This report is preliminary unless electronic signature is present EXAM Portable chest INDICATIONS ET tube followup PROCEDURE Frontal view chest COMPARISON 06/08/2017 FINDINGS Heart size stable. Patchy opacities. Both lungs are unchanged. Tip of the ET tube is approximately 1.5 cm above the yanira. No pneumothorax. IMPRESSION Stable Dictated by... Gume Myers M.D. THIS IS AN ELECTRONICALLY VERIFIED REPORT Gume Myers M.D. at 06/09/2017 9:53 PM EED/to TD: 06/09/2017 12:16 JOB #: [id number] MEDICAL IMAGING REPORT Page 1 of 1 COPY
--- NOTE | ~2017-06-04 | EKG ---
PATIENT: DAISY MILES UNIT #: [id number] Ventricular Rate: 93 BPM Atrial Rate: 93 BPM P-R Interval: 144 ms QRS Duration: 116 ms Q-T Interval: 360 ms QTC Calculation(Bezet): 447 ms P [place]: 31 degrees Calculated R [place]: -49 degrees Calculated T [place]: 72 degrees Diagnosis Line: Normal sinus rhythm Diagnosis Line: Left anterior fascicular block Diagnosis Line: Possible Anterolateral infarct (cited on or before Diagnosis Line: 05-JUN-2017) Diagnosis Line: Abnormal ECG Diagnosis Line: When compared with ECG of 07-JUN-2017 13:03, Diagnosis Line: (unconfirmed) Diagnosis Line: QRS duration has increased Diagnosis Line: Questionable change in initial forces of Diagnosis Line: Anterolateral leads Diagnosis Line: Confirmed by NETTA AMEZQUITA MD ([id number]) on 06/09/2017 Diagnosis Line: 7:49:20 PM INTERPRETING MD: ALIRIO CANTU
--- NOTE | ~2017-06-04 | A ---
[facility] Nutrition Therapy DATE: 06/06/17 Patient: DAISY Partida JD Physician: MARCELO Address: [address] [place] [address] Room/Bed: [address], Zip: [place] [address] Admit Date: 06/04/17 Date of : [birth year] Height: 5 4 Weight: 304 138 NUTRITIONAL ASSESSMENT: REASON: NPO in ICU 62 y/o male admitted for GI bleed, DKA PMH: DM, gastroparesis, CAD, HTN, COPD Anthropometrics: ht: 5'4" wt: 304# (138 kg) BMI: 52.2 Labs: Na+ 134, Glu 120, Ca++ 7.7, ALb 2.2, Accuchecks 119-135, A1c: 12.2 (FEBRUARY 2017) Meds: furosemide, lactulose, lopressor, versed, novolin, protonix I/O & Bowel function: 3081/2110. BM 06/06 Skin Integrity: WNL. Edema: BUE- 1+, BLE- 1+, trunk-generalized Estimated Nutrition Needs: 1707-1643 kcal (11-14 kcal/kg ABW) 109-136 g protein (2.0-2.5 g/kg IBW) fluids consistent with kcals or per MD Assessment: Chart reviewed, events noted. Pt intubated and sedated in ICU. Pt has DHT. RN reports he tried to wean pt off of sedation this morning and the pt did not tolerate well. Will attempt to wean/extubated again sometime today or tomorrow. Pt has history of varicies, so RN and SEED CUTTER report they will not attempt feed the pt for 48 more hours. No family in room at this time. Please see recommendations, RD to continue to follow. Dx: Inadequate oral intake r/t GI bleed, DKA, current condition AEB pt on vent, NPO Intervention: 1. NPO Monitoring, Evaluation and Goals: 1. Oral intake; once medically feasible, if diet advanced, consume/tolerate >50% of all meals 2. Enteral nutrition; once medically feasible, if initiated, provide >80% estimated goal volume 3. Weight; promote gradual weight loss 4. GI; promote regular GI function Recommendations: [facility] Nutrition Therapy DATE: 06/06/17 Patient: DAISY MILES Physician: MARCELO Address: [address] [place] [address] Room/Bed: [address], Zip: [place] [address] Admit Date: 06/04/17 Date of : [birth year] Height: 5 4 Weight: 304 138 1. If pt extubated, once medically feasible, advance diet to clear liquid as tolerated, then advance to GI soft/low fiber + consistent carbohydrate diet + heart healthy to promote gradual weight loss towards healthy BMI. 2. If pt remains intubated, once medically feasible, begin enteral nutrition support of Vital High Protein @ 20 mL/hr and advance 10 mL q 8 hours to goal rate of 65 mL/hr x 24 hours. This will provide 1560 kcal, 137 g protein, 1310 mL free h20. Free h20 flushed per MD. 3. If enteral nutrition not tolerated, consult RD for further nutritional needs. RD will f/u per protocol as pt is at moderate/severe nutritional risk. Respectfully, SHAWN CHAUDHRY, computer science intern Zulma Phillips MS, RD, LD Food and Nutritional Services [facility] cc: client file
--- NOTE | ~2017-06-04 | CR72 ---
[facility] A Service of [facility] & [facility] RADIOLOGY TEXT RESULTS PATIENT: DAISY MILES LOCATION: [place] [address] : [birth year] UNIT #: [id number] AGE: [address]: Joaquina Dubois MD SEX: F ORDER DR: [id number] [facility] [address] [facility]. [place], [place] [address] [id number] I MR#: [id number] Acc #: [id number] NAME: DAISY MILES : 1955 SEX: F STUDY DATE/TIME: 06/06/2017 2:42 UNIT: [facility] ROOM: [facility] STUDY DESCRIPTION: CR Chest Single View Portable Attending Physician: Joaquina Dubois M.D. Ordering Physician: Buzz Del Castillo M.D. Primary Care Physician: Irina Mclean M.D. MEDICAL IMAGING REPORT This report is preliminary unless electronic signature is present EXAM Portable chest INDICATIONS Respiratory failure followup. PROCEDURE Frontal view chest. COMPARISON 06/05/2017 FINDINGS Heart size unchanged. Linear atelectasis left lung base. ET tube is stable. No new dense consolidation or pneumothorax. IMPRESSION New linear atelectasis in the left lung base. Otherwise stable. Dictated by... Gume Myers M.D. THIS IS AN ELECTRONICALLY VERIFIED REPORT Gume Myers M.D. at 06/06/2017 10:02 PM EED/linda TD: 06/06/2017 10:19 JOB #: [id number] MEDICAL IMAGING REPORT Page 1 of 1 COPY
--- NOTE | ~2017-06-04 | TOC ---
Unit #: [id number] #: [id number] Patient: DAISY MILES [id number] [address] [address] [id number] I MR#: [id number] NAME: DAISY MILES. ROOM: [facility] Age: 62 Sex: F Admission Date: 06/04/2017 : 1955 Attending Physician: Joaquina Dubois M.D. Primary Care Physician: Irina Mclean M.D. TRANSFER OF CARE SUMMARY DISCHARGE DIAGNOSES 1. Acute hypercapnic/hypoxic respiratory failure. 2. Sepsis, present on admission. 3. Pneumonia. 4. Hepatic encephalopathy. 5. Nonalcoholic steatohepatitis cirrhosis. 6. Gastrointestinal bleed. 7. Anemia secondary to acute blood loss. 8. Acute cholecystitis. 9. Diabetic ketoacidosis, currently resolved. 10. Anxiety. 11. Severe protein malnutrition. 12. Hypokalemia. 13. Hypocalcemia. 14. Severe protein malnutrition. 15. History of esophageal varices. 16. Coronary artery disease. 17. Chronic diastolic heart failure. 18. Hypertension. 19. Hyperlipidemia. 20. Pulmonary hypertension. 21. Chronic obstructive pulmonary disease. 22. History of seizure disorder. 23. Rheumatoid arthritis. 24. Meningioma, status post excision. 25. Diabetes mellitus type 2, uncontrolled. 26. Obesity. 27. Obstructive sleep apnea, noncompliant with CPAP. 28. Active smoker. CONSULTATION 1. Dr. Del Castillo. 2. Dr. Jung. 3. Dr. Osuna. 4. Dr. Ortiz. PROCEDURES The patient had endotracheal intubation on June 05 and central line placement on June 05. EGD on June 05, 2017, which shows a lot of blood and clots in the stomach. No active bleeding, no gastric varices. Two cords of prominent valves are seen in the distal esophagus, two bands placed at that area. Unit #: [id number] #: [id number] Patient: DAISY MILES Also, patient had bronchoscopy on June 08, 2017. LAB DATA Magnesium 2.0. Chest x-ray shows bilateral interstitial infiltrates. Blood cultures negative. Bronchoscopy cultures negative. Ammonia 73, WBC 10.7, hemoglobin 7.7, platelets 271. ABG 7.30, carbon dioxide 54, oxygen 81. CT of the abdomen and pelvis in June 04 shows moderately extensive diffuse wall thickening of the entire colon. Infectious or inflammatory proctocolitis suggested. CT of the head shows no acute changes. HOSPITALIZATION COURSE 62-year-old admitted because of GI bleed. Acute hypercapnic/hypoxic respiratory failure, currently intubated and sedated: Monitor closely in ICU. Patient's prognosis is very poor. Critically ill. Family aware of the situation. Discussed with the sister. Weaning per pulmonary. Sepsis from pneumonia: The patient had bronchoscopy. Cultures negative. Patient did receive broad spectrum antibiotics. Currently, she is on Zosyn. History of cirrhosis with esophageal varices and bleeding, status post EGD and banding: Currently, hemoglobin is 7.7. Transfuse p.r.n. Anemia secondary to acute blood loss with GI bleed: Transfuse p.r.n. Hepatic encephalopathy: The patient is seen by Dr. Jung. Currently, patient is intubated and sedated. Continue with Lactulose. Acute proctocolitis: Patient is on Flagyl and Zosyn. Severe anxiety, needing multiple sedative medicines during the intubation: Monitor closely. Severe protein malnutrition: Continue with feeds per GI and per spanisher. Monitor closely in ICU. Critically ill patient. longterm prognosis very poor, family aware. Dictated by... Joaquina Dubois M.D. Unit #: [id number] #: [id number] Patient: DAISY MILES Jaquan NICHOLSON/amy TD: 06/10/2017 11:53 JOB #: [id number] TRANSFER OF CARE SUMMARY Page 1 of 1 X Joaquina Dubois MD X TRANSFER OF CARE SUMMARY
--- NOTE | ~2017-06-04 | OR ---
Unit #: [id number] #: [id number] Patient: DAISY MILES [id number] [address] [address] [id number] I MR#: [id number] NAME: DAISY MILES ROOM: [facility] Date of Procedure: 06/08/2017 Admission Date: 06/04/2017 Surgeon: Brielle Fernando M.D. : 1955 Attending Physician: Joaquina Dubois M.D. Primary Care Physician: Irina Mclean M.D. PROCEDURE OPERATIVE NOTE PROCEDURE PERFORMED Diagnostic and therapeutic bronchoscopy. INDICATIONS FOR PROCEDURE Fever and pneumonia. POSTOPERATIVE FINDINGS Diffuse thin greenish to beige color secretions at the level of the yanira, right lower lobe, right upper lobe, left lower lobe. PREMEDICATION Patient is on fentanyl and Precedex drips. COMPLICATIONS None. DESCRIPTION OF PROCEDURE An informed consent was obtained from the patient's family after explaining the benefit and risk of this procedure. The patient was prepped and positioned in a proper way, then the C-MAC bronchoscope was advanced through the ET tube. At the level of the yanira, diffuse thin beige/greenish secretions were noted which were aspirated and lavaged. Color appeared close to tube feeding materials which raised the concern for aspiration. The bronchoscope was advanced then into the right main bronchus and the right upper lobe, right middle lobe, right lower lobe were examined which appeared erythematous with diffuse and cohesive amount of beige color secretion which was lavaged and aspirated. Washing was obtained from the right lower lobe which will be sent for culture. The bronchoscope was retracted and then re-advanced into the left main bronchus and the left upper lobe lingula and left lower lobe were examined which appeared also erythematous with a copious amount of thin secretion which was lavaged and aspirated. The bronchoscope was retracted out then and patient tolerated her procedure well with no immediate complications. Dictated by... Brielle Fernando M.D. Unit #: [id number] #: [id number] Patient: DAISY MILES JEMIMA/carola TD: 06/08/2017 16:29 JOB #: [id number] PROCEDURE OPERATIVE NOTE Page 1 of 1 X BRIELLE JENKINS MD PROCEDURE OPERATIVE NOTE
--- NOTE | ~2017-06-04 | CO ---
Unit #: [id number] #: [id number] Patient: DAISY MILES [id number] [address] [address] [id number] I MR#: [id number] NAME: DAISY MILES. ROOM: [facility] Age: 62 Sex: F Admission Date: 06/04/2017 : 1955 Attending Physician: Joaquina Dubois M.D. Primary Care Physician: Irina Mclean M.D. CONSULTATION REPORT REASON FOR CONSULTATION Diabetic ketoacidosis. REQUESTING PHYSICIAN HIPs group. The patient is sedated and intubated. Source of history is medical records. HISTORY OF PRESENT ILLNESS This is a 62-year-old female with history of multiple medical problems including nonalcoholic steatohepatitis advanced to the cirrhosis complicated with esophageal varices. The strep was pending in the past; type 2 diabetes mellitus; gastroparesis, who presented to the emergency room for complaining of the abdominal pain and bleeding per rectum. In the emergency room, the patient was intubated and sedated. She had also found to be in metabolic acidosis with hyperglycemia, blood glucose was 456. Her hemoglobin was only 5.5, she has been transfused blood. She is currently on IV fluids, insulin drip, and intubated. MEDICAL HISTORY Esophageal varices, GI bleed in the past, coronary artery disease, congestive heart failure, hypertension. PAST SURGICAL HISTORY EGD, colonoscopy, cardiac cath, meningioma removal, right knee replacement, cholecystectomy, appendectomy, status post variceal banding. SOCIAL HISTORY Lives with her mother and sister. Continues to smoke a pack per day. No alcohol history. FAMILY HISTORY Mother has hypertension. ALLERGIES Cephalosporin and latex. MEDICATIONS Home medications list is reviewed. Current medications list is reviewed. The patient is on Flagyl IV, lactulose, Lopressor, Sandostatin, Zosyn, and insulin drip. REVIEW OF SYSTEMS Unit #: [id number] #: [id number] Patient: DAISY MILES Unobtainable. PHYSICAL EXAMINATION GENERAL: Intubated, sedated, comfortable. VITAL SIGNS: She has low-grade fever with temperature 99.2, pulse 115, respirations 33, blood pressure is 143/82. HEENT: EOMI. Pupils reactive to light. NECK: Supple. No thyromegaly. No JVD. CHEST: Decreased air entry bilaterally. CVS: Regular rhythm. Tachycardic. ABDOMEN: Soft, not distended. Bowel sounds positive. EXTREMITIES: No edema or ulcers noted. DIAGNOSTIC STUDIES LABORATORY RESULTS: Glucose 156, sodium 133, potassium 3.5, chloride 109, CO2 is 20. A1c is 12.2. Lactic acid 3.1. ASSESSMENT 1. Diabetic ketoacidosis. 2. Respiratory failure. 3. Gastrointestinal bleed. 4. Sepsis. 5. Cirrhosis of the liver. 6. Hypertension. PLAN We will continue insulin drip, decrease IV fluids to 100 mL an hour. Continue ventilation support care. Monitor electrolytes. Replacement the mag and potassium protocol. Monitor phosphorus closely. We will continue to follow the patient for further management. Thanks again for consult. Dictated by... Nazanin Zaldivar/tani TD: 06/07/2017 02:58 JOB #: [id number] CONSULTATION REPORT Page 1 of 1 X Miguel Osuna MD CONSULTATION REPORT
--- NOTE | ~2017-06-04 | TOC ---
Unit #: [id number] #: [id number] Patient: DAISY MILES [id number] [address] [address] [id number] I MR#: [id number] NAME: DAISY MILES ROOM: 215 Age: 62 Sex: F Admission Date: 06/04/2017 : 1955 Attending Physician: Genaro Ellis M.D. Primary Care Physician: Irina Mclean M.D. TRANSFER OF CARE SUMMARY ADDENDUM NOTE This is an addendum to a note done by Dr. Joaquina Dubois on June 10. ADDENDUM The patient was successfully extubated on 06/12. She remained on BiPAP for several days but this too was successfully weaned. Given the patient's GI bleed and acute blood loss there were plans to perform a colonoscopy after the patient was transferred to the floor; she did refuse the prep and the scope and it was therefore not performed. The patient required transfusion with two additional units of packed cells over the course of her stay since the above dictation. Hemoglobin has remained stable since that time. The patient has been started on IV iron, B12 and folate. There was initially some concern for choking with eating; however, repeated speech evaluation has revealed no swallowing difficulties and the patient has been started on a regular diet with thin liquids. At this time the patient is felt to be roughly at her baseline and will be discharged to rehab once a bed is available. The remainder of the stay including discharge medications will be dictated by my discharging colleague. Dictated by... Nazanin Nelson/john TD: 06/19/2017 15:03 JOB #: [id number] Unit #: [id number] #: [id number] Patient: DAISY MILES TRANSFER OF CARE SUMMARY Page 1 of 1 X Genaro Ellis MD X TRANSFER OF CARE SUMMARY
--- NOTE | ~2017-06-04 | EKG ---
PATIENT: DAISY MILES UNIT #: [id number] Ventricular Rate: 103 BPM Atrial Rate: 103 BPM P-R Interval: 148 ms QRS Duration: 118 ms Q-T Interval: 370 ms QTC Calculation(Bezet): 484 ms P [place]: 31 degrees Calculated R [place]: -53 degrees Calculated T [place]: 77 degrees Diagnosis Line: Sinus tachycardia Diagnosis Line: Left anterior fascicular block Diagnosis Line: Left ventricular hypertrophy with QRS widening and Diagnosis Line: repolarization abnormality Diagnosis Line: Possible Lateral infarct (cited on or before Diagnosis Line: 04-JUN-2017) Diagnosis Line: Abnormal ECG Diagnosis Line: When compared with ECG of 05-JUN-2017 06:18, Diagnosis Line: (unconfirmed) Diagnosis Line: Premature ventricular complexes are no longer Diagnosis Line: Present Diagnosis Line: Confirmed by JABAIR PERKINS MD ([id number]) on Diagnosis Line: 06/06/2017 12:22:48 PM INTERPRETING MD: GUILLERMO
--- NOTE | ~2017-06-04 | CO ---
Unit #: [id number] #: [id number] Patient: DAISY MILES [id number] [address] [place], [place] [address] [id number] I MR#: [id number] NAME: DAISY MILES ROOM: [facility] Age: 62 Sex: F Admission Date: 06/04/2017 : 1955 Attending Physician: Joaquina Dubois M.D. Primary Care Physician: Irina Mclean M.D. Consultation Date: 06/05/2017 CONSULTATION REPORT REASON FOR CONSULTATION Arrhythmia. HISTORY OF PRESENT ILLNESS This is a 62-year-old white female, who has been seen by Dr. Wilder in the past. She has a history of hypertension, hyperlipidemia, pulmonary hypertension, and chronic diastolic heart failure. She has also been seen by Dr. Polanco in the past according to the sister. Records obtained from [facility] show the patient at one time had followed with congestive Heart failure Clinic at [facility]. There are records that indicate that the patient had cardiac catheterization at some point that was unremarkable. There are no details available. The patient is currently intubated and is unable to provide a history. Sister who is at the bedside gave some insight to the patient's current condition. According to the sister, the patient had a complaint of abdominal pain prior to her admission. She was told that she had some rectal bleeding. She was noted for confusion and was brought to the emergency room for evaluation. She was found to have a hemoglobin of 5.5, and has received a total of 4 units of packed red blood cells. In the emergency room, she developed respiratory distress and was subsequently intubated. She has undergone EGD, where she was found to have esophageal varices that were banded. There was blood and clots found in the stomach. During the course of her stay, the patient had several episodes of tachycardia that was concerned for atrial fibrillation. Her presenting EKG shows normal sinus rhythm. There is frequent premature atrial complexes noted on repeat EKG. Rhythm strip shows paroxysmal atrial fibrillation alternating with normal sinus rhythm. She has been treated with beta-blockers. PAST MEDICAL HISTORY 1. 2D echocardiogram on 04/06/2017 shows an ejection fraction of 50% to 55% with mildly dilated left atrium. Mild tricuspid regurgitation. 2. Cardiac catheterization with normal coronaries as indicated on records from [facility]. No details available. 3. Hypertension. 4. Hyperlipidemia. 5. Pulmonary hypertension. 6. Chronic diastolic heart failure. 7. History of esophageal varices with banding. 8. COPD. 9. PRUETT. 10. Anemia. Unit #: [id number] #: [id number] Patient: DAISY MILES 11. Seizure disorder. 12. Rheumatoid arthritis. 13. Meningioma, status post excision. 14. Diabetes mellitus, type 2. 15. Obesity. 16. Obstructive sleep apnea, noncompliant with CPAP. 17. Active smoker. PAST SURGICAL HISTORY 1. Total knee arthroplasty. 2. Cholecystectomy. 3. Tonsillectomy. 4. Brain meningioma excision. 5. Appendectomy. SOCIAL HISTORY The patient is disabled. According to her sister, she "smokes a lot." Records indicate she smoked at least a pack of cigarettes daily for more than 30 years. There is no report of illicit drug or alcohol use. FAMILY HISTORY Positive for heart disease in both parents. ALLERGIES Cephalosporins and latex. HOME MEDICATIONS Venlafaxine 150 mg b.i.d., diltiazem 240 mg daily, Tradjenta 5 mg daily, Protonix 40 mg b.i.d., Lopressor 25 mg q.12 hours, Reglan 10 mg t.i.d. REVIEW OF SYSTEMS Unable to obtain, because the patient is currently intubated. PHYSICAL EXAMINATION VITAL SIGNS: Blood pressure 143/82, heart rate 115, temperature 99.2. BMI of 39. GENERAL: This is an obese 62-year-old white female, who is currently intubated and sedated. She is in no acute distress. NECK: Trachea is midline. No thyromegaly or lymphadenopathy. No jugular venous distention. HEART: S1, S2. Heart sounds are normal. No murmurs. No rubs or clicks. Regular rate and rhythm. LUNGS: Clear without rales, rhonchi, or wheeze. ABDOMEN: Soft and obese with bowel sounds are hypoactive. No obvious organomegaly. EXTREMITIES: Without leg edema. SKIN: Warm and dry. DIAGNOSTIC STUDIES LABORATORY RESULTS: Hemoglobin 8.8, hematocrit 28.3, platelet count 226, and white count 20.9. Sodium 136, potassium 3.8, BUN 30, creatinine 0.9, glucose 127. Magnesium 2.0. Troponin less than 0.03. Lactic acid 3.1. IMAGING STUDIES: Chest x-ray noted for atelectasis. CARDIOVASCULAR STUDIES: EKG; sinus tachycardia with frequent premature atrial complexes. Unit #: [id number] #: [id number] Patient: DAISY MILES 1. Acute gastrointestinal bleed. 2. Status post esophagogastroduodenoscopy with esophageal varices, status post banding. 3. Acute respiratory failure. 4. Leukocytosis probable sepsis. 5. Acute colitis. 6. Diabetic ketoacidosis, resolved. 7. Encephalopathy. 8. Paroxysmal atrial fibrillation, converted to normal sinus rhythm. 9. Preserved left ventricular systolic function with an ejection fraction of 55%. 10. Chronic diastolic heart failure. 11. Pulmonary hypertension. 12. Chronic obstructive pulmonary disease. PLAN 1. Cardiology was consulted for tachycardia. There is no atrial fibrillation noted on EKG; however, rhythm strip shows an episode of atrial fibrillation that is intermittent. We will control with beta blockers intravenously. 2. Blood pressure is currently stable. 3. Repeat troponin and EKG. 4. The patient has preserved left ventricular systolic function per echocardiogram in 03/2017. 5. Watch for fluid overload given history of chronic diastolic heart failure. No obvious heart failure is noted on examination. 6. She has a CHADS2-Vasc score of 4. Because of anemia, we will not pursue long-term anticoagulation at this time. 7. We will follow the patient with you. Thank you for allowing us to assist with this patient's care. Dictated by... Kit JefferyP.R.N. for Nazanin Joseph/tani TD: 06/07/2017 08:57 JOB #: [id number] CC: Irina Mclean M.D. CONSULTATION REPORT Page 1 of 1 X Jonathan Can APRN X CONSULTATION REPORT
--- NOTE | ~2017-06-04 | CR72 ---
[facility] of [facility] RADIOLOGY TEXT RESULTS PATIENT: DAISY MILES LOCATION: [place] [address] : [birth year] UNIT #: [id number] AGE: [address]: Genaro Ellis MD SEX: F ORDER DR: [id number] [facility] [address] [place], [place] [address] [id number] I MR#: [id number] Acc #: [id number] NAME: DAISY MILES : 1955 SEX: F STUDY DATE/TIME: 06/13/2017 04:14 UNIT: [facility] ROOM: [facility] STUDY DESCRIPTION: CR Chest Single View Portable Attending Physician: Genaro Ellis M.D. Ordering Physician: Buzz Del Castillo M.D. Primary Care Physician: Irina Mclean M.D. MEDICAL IMAGING REPORT This report is preliminary unless electronic signature is present EXAM Portable chest, 06/13/17 INDICATIONS Respiratory failure. GI bleed. FINDINGS AP portable chest is compared 06/12/2017. The heart remains enlarged. Lung volumes are low. Right IJ line at the right atrial level unchanged. Small volume of left pleural fluid. There is some continued vascular congestion. There is some mild infiltrate or atelectasis in the bases. No pneumothorax. Dictated by... Jaleel Oleary Jr., M.D. THIS IS AN ELECTRONICALLY VERIFIED REPORT Jaleel Oleary Jr., M.D. at 06/13/2017 9:11 PM JAMES/palmira TD: 06/13/2017 11:40 JOB #: [id number] MEDICAL IMAGING REPORT Page 1 of 1 COPY
--- NOTE | ~2017-06-04 | CR72 ---
[facility] A Service of [facility] & [facility] RADIOLOGY TEXT RESULTS PATIENT: DAISY MILES LOCATION: [place] [address] : [birth year] UNIT #: [id number] AGE: [address]: Joaquina Dubois MD SEX: F ORDER DR: [id number] [facility] [address] [facility] [place], [place] [address] [id number] I MR#: [id number] Acc #: [id number] NAME: DAISY MILSE : 1955 SEX: F STUDY DATE/TIME: 06/10/2017 5:50 [facility] STUDY DESCRIPTION: CR Chest Single View Portable Attending Physician: Joaquina Dubois M.D. Ordering Physician: Chuck Fernando M.D. Primary Care Physician: Irina Mclean M.D. MEDICAL IMAGING REPORT This report is preliminary unless electronic signature is present EXAM Single view chest INDICATION Shortness of air. Respiratory failure. FINDINGS Single portable AP view of the chest compared to 06/09/2017. Support lines and tubes remain in place. Heart and mediastinal contours are unchanged. Perihilar interstitial and alveolar airspace opacities are similar to the prior study. Lung volumes are low. No pneumothorax. IMPRESSION No interval change. Dictated by... Danielito Cope M.D. THIS IS AN ELECTRONICALLY VERIFIED REPORT Danielito Cope M.D. at 06/10/2017 3:09 PM Pina TD: 06/10/2017 08:54 JOB #: [id number] MEDICAL IMAGING REPORT Page 1 of 1 COPY
--- NOTE | ~2017-06-04 | FU ---
[facility] Nutrition Therapy DATE: 06/09/17 Patient: DAISY Partida JD Physician: MARCELO Address: [address] [place] [address] Room/Bed: [address], Zip: [place] [address] Admit Date: 06/04/17 Date of : [birth year] Height: 5 4 Weight: 326 148 NUTRITION MONITORING/FOLLOW-UP: Reason: Enteral nutrition follow-up 62 y/o female admitted for GI bleed, DKA Anthropometrics: ht: 5'4" wt: 326# (148 kg) BMI 55 -Admit weight: 304# Labs: K+ 2.9, GLU 251, Creat 0.5, Ca++ 7.3, Alb 1.9, Mg++ 1.4 Meds: propofol, versed, fentanyl, levemir I&O's: 5193/5635. BM 06/09 Skin: scar- LT knee; redness- general. Edema previouslt noted, no change. Estimated Nutrition Needs: 7066-2080 kcal (11-14 kcal/kg) 109-136 g protein (2.0-2.5 g/kg) Assessment: Chart reviewed, events noted. Pt continues to be intubated and sedated at time of visit receiving enteral nutrition support of Vital HP @ 65 mL/hr (1510 mL x 24 hours, 97% goal volume). RN reports that the pt is tolerating the tubefeeds. The pt is still very agitated and does not follow commands. Pt was bronch'd yesterday. Propofol has been added to the pt's current medication orders, current running at 26.6 mL/hr. Please see recommendations for adjusted tubefeeding rate. RD will continue to follow. Dx: Inadequate oral intake r/t GI bleed, DKA, current condition AEB pt on vent, NPO -ACTIVE/RESOLVED New Dx: Inadequate oral intake r/t GI bleed, DKA, current condition AEB pt on vent, receiving alternative nutrition support. Intervention: 1. Enteral nutrition support Monitoring, Evaluation and Goals: 1. Oral intake; once medically feasible, if diet advanced, consume/tolerate >50% of all meals -NOT ACTIVE 2. Enteral nutrition; once medically feasible, if initiated, provide >80% estimated goal volume -MET/IN PROGRESS [facility] Nutrition Therapy DATE: 06/09/17 Patient: DAISY MILES Physician: MARCELO Address: [address] [place] [address] Room/Bed: [address], Zip: [place] [address] Admit Date: 06/04/17 Date of : [birth year] Height: 5 4 Weight: 326 148 2. Weight; promote gradual weight loss -NOT MET 3. GI; promote regular GI function -MET/IN PROGRESS Recommendations: 1. Once medically feasible, Change current enteral nutrition support rate to Vital HP @ 50 mL/hr x 24 hours. This will provide, WITH PROPOFOL, 1900 kcal, 105 g protein, 1008 mL h20. free h20 flushes per MD. 2. IF PROPOFOL D/C'D, resume previous enteral nutrition support of Vital HP @ 65 mL/hr x 24 hours. This will provide 1560 kcal, 137 g protein, 1310 free h20. Free h20 flushes per MD. 3. If pt extubated, advance diet per DEVELOPMENT INTERN as tolerated to healthy heart + consistent carbohydrate + low fiber. RD will f/u per protocol as pt is at moderate/severely nutritional risk. Respectfully, SHAWN CHAUDHRY, finance accounting internship Zulma Phillips MS, RD, LD Food and Nutritional Services [facility] cc: client file
--- NOTE | ~2017-06-04 | CR72 ---
[facility] A Service of [facility] & [facility] RADIOLOGY TEXT RESULTS PATIENT: DAISY MILES LOCATION: [place] [address] : [birth year] UNIT #: [id number] AGE: [address]: Joaquina Dubois MD SEX: F ORDER DR: [id number] [facility] [address] [facility]. [place], [place] [address] [id number] I MR#: [id number] Acc #: [id number] NAME: DAISY MILES : 1955 SEX: F STUDY DATE/TIME: 06/07/2017 6:18 UNIT: [facility] ROOM: [facility] STUDY DESCRIPTION: CR Chest Single View Portable Attending Physician: Joaquina Dubois M.D. Ordering Physician: Joaquina Dubois M.D. Primary Care Physician: Irina Mclean M.D. MEDICAL IMAGING REPORT This report is preliminary unless electronic signature is present EXAM Portable chest. INDICATIONS Follow up support lines and tubes. COMPARISON Yesterday FINDINGS Support lines and tubes are stable. There are increased interstitial and patchy airspace opacities. There is decreased linear atelectasis in the left base. Heart size stable. IMPRESSION Increased interstitial and patchy airspace opacities. Stable support lines and tubes. Dictated by... Jesus Roger M.D. THIS IS AN ELECTRONICALLY VERIFIED REPORT Jesus Roger M.D. at 06/08/2017 4:59 PM NADIRA/christi TD: 06/07/2017 14:17 JOB #: [id number] MEDICAL IMAGING REPORT Page 1 of 1 COPY
--- NOTE | ~2017-06-04 | CR72 ---
[facility] A Service of [facility] & [facility] RADIOLOGY TEXT RESULTS PATIENT: DAISY MILES LOCATION: [facility] - : [birth year] UNIT #: [id number] AGE: [address]: MARILUZ RIVERA V SEX: F ORDER DR: [id number] [facility] [address] [place], [place] [address] [id number] I MR#: [id number] Acc #: [id number] NAME: DAISY MILES. : 1955 SEX: F STUDY DATE/TIME: 06/22/2017 11:08 UNIT: [facility] ROOM: [facility] STUDY DESCRIPTION: CR Chest Single View Portable Attending Physician: Mariluz Rivera M.D. Ordering Physician: Chuck Fernando M.D. Primary Care Physician: Irina Mclean M.D. MEDICAL IMAGING REPORT This report is preliminary unless electronic signature is present EXAM Portable chest INDICTIONS: Cough and congestion for two days. FINDINGS A portable view of the chest was obtained and compared to 06/13/17. The heart size and vascularity are normal and the lungs are clear except for linear band of atelectasis in the left midlung measuring5 cm long and 7 mm in thickness. The bones are normal. IMPRESSION Linear subsegmental atelectasis left midlung otherwise normal. Dictated by... Cristo Rosas M.D. THIS IS AN ELECTRONICALLY VERIFIED REPORT Cristo Rosas M.D. at 06/22/2017 3:34 PM PEGGY/linda TD: 06/22/2017 13:07 JOB #: [id number] MEDICAL IMAGING REPORT Page 1 of 1 COPY
--- NOTE | ~2017-06-04 | OR ---
Unit #: [id number] #: [id number] Patient: DAISY MILES [id number] [address] [address] [id number] I MR#: [id number] NAME: DAISY MILES ROOM: [facility] Date of Procedure: 06/05/2017 Admission Date: 06/04/2017 Surgeon: Buzz Del Castillo M.D. : 1955 Attending Physician: Joaquina Dubois M.D. Primary Care Physician: Irina Mclean M.D. PROCEDURE OPERATIVE NOTE PROCEDURE PERFORMED Endotracheal intubation. INDICATION Respiratory failure. PREPROCEDURE DIAGNOSIS Respiratory failure. POSTPROCEDURE DIAGNOSIS Respiratory failure. DETAIL OF THE PROCEDURE After placing the patient in proper position we gave 20 mg of Etomidate 4 mg, versed, and with direct visualization, with the laryngoscope, #4 MAC, size 8 endotracheal tube was passed through the vocal cords without any complications. The patient tolerated the procedure very well. Bilateral breath sounds are good on the entitled CO2 monitor. Dictated by... Nazanin Dorado TD: 06/05/2017 15:07 JOB #: [id number] PROCEDURE OPERATIVE NOTE Page 1 of 1 X Buzz Del Castillo MD X PROCEDURE OPERATIVE NOTE
--- NOTE | ~2017-06-04 | FU ---
[facility] Nutrition Therapy DATE: 06/13/17 Patient: DAISY SOLORZANODIAN Physician: MARCELO Address: [address] [place] [address] Room/Bed: [address], Zip: [place] [address] Admit Date: 06/04/17 Date of : [birth year] Height: 5 4 Weight: 262 119 NUTRITION MONITORING/FOLLOW-UP: Reason: FOLLOW UP Anthropometrics: Ht: 5'4" Adm wt: 138 kg BMI: 52 Weight 06/13: 119 kg Please note change in weight from admission to current is 19 kg (42# difference). Edema noted. Pt appears to be closer to [address] and neck skewer Labs: Gluc 215 Creat 0.5 Ca++ 7.8 Alb 2.0 Accuchecks 134-177 Alk phos 192 Meds: Levemir, furosemide, lopressor, spironolactone, protonix, novolog, xifaxin, lactulose, MgSO4, KCl I&O's: 2487/2389, last BM 06/13, liquid stool noted by RN Skin: Redness to coccyx/ abdominal folds/ BL breasts Edema: Hips/ abdomen/ trunk- generalized Estimated Nutrition Needs: 119 kg used for nutrition calculations 4392-5102 kcals (11-14 kcals/kg ABW) 109-120 grams protein (2.0-2.2 grams/kg IBW) Assessment: Chart reviewed, events noted. Pt was extubated on Tuesday and remains in ICU with DHT. Enteral nutrition is currently being held for possible paracentesis. MD ordered KUB to rule out ileus. Although RD previously recommended Vital High Protein, it appears that the pt was receiving Vital 1.5, as that is what is currently hanging in the room. RD informed RN of this. RN reports that the pt has been receiving 450 mL free H20 q 6 hrs, and that this will likely decrease today since the pt's Na+ is WNL. PLANTING MACHINE OPERATOR just attempted evaluation, and reports that the pt could not complete the eval, likely has dysphagia with multiple swallow and respiratory distress. RD recommending to change the pt's enteral formula based on weight change, extubation, and hyperglycemia. RD spoke with MD regarding recommendations. Please see recommendations below. Dx: Inadequate oral intake RT GI bleed, DKA, clinical condition AEB pt on vent, receiving alternative nutrition support- NO LONGER RELEVANT (PT EXTUBATED) New Dx: Inadequate protein-energy intake RT clinical condition, respiratory distress, dysphagia AEB PLANTING MACHINE OPERATOR evaluation, NPO status, enteral nutrition support. [facility] Nutrition Therapy DATE: 06/13/17 Patient: DAISY MILES Physician: MARCELO [facility] [address] [facility] Room/Bed: [address], Zip: [place] [address] Admit Date: 06/04/17 Date of : [birth year] Height: 5 4 Weight: 262 119 Intervention: 1. Enteral nutrition- change formula to Glucerna 1.5 2. PLANTING MACHINE OPERATOR Monitoring, Evaluation and Goals: 1. Enteral nutrition; provide >80% goal volume x 24 hrs- NOT MET 2. Weight; promote gradual weight loss once appropriate- IN PROGRESS 3. GI; promote regular GI function- NOT MET (LIQUID STOOL) NEW GOALS: 4. Change enteral nutrition formula (see below) 5. Improve labs; glucose 6. Oral intake; pass PLANTING MACHINE OPERATOR, advance diet Recommendations: 1. Change enteral formula from Vital to Glucerna 1.5 due to change in weight, extubation and hyperglycemia. -Start Glucerna 1.5 @ 30 mL/hr + 30 mL Prostat BID. Increase by 10 mL q 4 hrs as tolerated to goal of 40 mL/hr + 30 mL Prostat BID. This will provide: 1640 kcals/ 109 grams protein/ 729 mL free H20 Monitor for signs of intolerance with change in formula 2. Continue PLANTING MACHINE OPERATOR as appropriate to determine if the pt can safely tolerate PO intake. If advanced to PO diet, recommend HH/CC diet restriction + 6 small meals d/t DM, PRUETT cirrhosis, cardiovascular history. 3. Please obtain accurate weight due to change in weight from admission to current. Status: Pt is at moderate-severe nutritional risk. RD will continue to follow. Respectfully, RAFA MANN, TARYN, LD Food and Nutritional Services [facility] Nutrition Therapy DATE: 06/13/17 Patient: DAISY MILES Physician: MARCELO [facility] [address] [facility] Room/Bed: [address], Zip: [place] [address] Admit Date: 06/04/17 Date of : [birth year] Height: 5 4 Weight: 262 119 cc: client file
--- NOTE | ~2017-06-04 | CR7 ---
[facility] A Service of [facility] & [facility] RADIOLOGY TEXT RESULTS PATIENT: DAISY MILES LOCATION: [address] : [birth year] UNIT #: [id number] AGE: [address]: Genaro Ellis MD SEX: F ORDER DR: [id number] [facility] [address] [place], [place] [address] [id number] I MR#: [id number] Acc #: [id number] NAME: DAISY MILES : 1955 SEX: F STUDY DATE/TIME: 06/11/2017 17:46 [facility]IT: [facility] ROOM: [facility] STUDY DESCRIPTION: CR Abdomen Single AP View Attending Physician: Joaquina Dubois M.D. Ordering Physician: Joaquina Dubois M.D. Primary Care Physician: Irina Mclean M.D. MEDICAL IMAGING REPORT This report is preliminary unless electronic signature is present EXAM Single view of the abdomen, dated 06/11/2017. COMPARISON STUDIES Single view of the abdomen dated 06/05/2017. HISTORY Dobbhoff tube placement. FINDINGS Single view of the abdomen was obtained. Dobbhoff tube was looped in the proximal body and adjacent fundus of the stomach with the tip winding medially. It is only less than 5 cm from the presumed GE junction. There is nonspecific bowel gas pattern. Dictated by... Rosa M Valenzuela M.D. THIS IS AN ELECTRONICALLY VERIFIED REPORT Rosa M Valenzuela M.D. at 06/13/2017 7:31 PM CPR/jt TD: 06/12/2017 01:13 JOB #: [id number] MEDICAL IMAGING REPORT Page 1 of 1 COPY
--- NOTE | ~2017-06-04 | DS ---
Unit #: [id number] #: [id number] Patient: DAISY MILES [id number] [address] [address] [id number] I MR#: [id number] NAME: DAISY MILES ROOM: 215 Age: 62 Sex: F Admission Date: 06/04/2017 : 1955 Discharge Date: 06/22/2017 Attending Physician: Terry Vallecillo M.D. Primary Care Physician: Irina Mclean M.D. DISCHARGE SUMMARY DISCHARGE DIAGNOSES 1. Acute hypercapnic hypoxic respiratory failure. 2. Sepsis. 3. Pneumonia. 4. Hepatic encephalopathy. 5. Nonalcoholic steatohepatitis cirrhosis. 6. Gastrointestinal bleed. 7. Anemia, secondary to acute blood loss. 8. Acute cholecystitis. 9. Diabetic ketoacidosis. 10. Anxiety. 11. Severe protein malnutrition. 12. Hypokalemia. 13. Hypocalcemia. 14. Chronic diastolic heart failure. 15. Hypertension. 16. Pulmonary hypertension. 17. Chronic obstructive pulmonary disease. CONSULTATIONS 1. Pulmonary consultation, Dr. Del Castillo. 2. Gastroenterology consultation, Dr. Jung. 3. Endocrinology consultation, Dr. Osuna. HOSPITAL COURSE The patient is a 62-year-old woman who was initially admitted for GI bleeding. She was found to have a hemoglobin of 5.5 for which she was transfused packed RBCs to replace blood loss. She underwent EGD with banding of esophageal varices. Her hemoglobin is currently stable at 8.9. The patient also had acute hypercapnic hypoxic respiratory failure for which she was intubated. She was successfully extubated on June 12, remained on BiPAP for several days for which this was also successfully weaned. She is continued on nebulized bronchodilators, Combivent, Mini neb every six hours. The patient is currently stable for discharge. The patient had a urinary tract infection. Urine cultures grew E. coli sensitive to ceftriaxone and Macrobid. The patient is continued on Macrobid. The patient is afebrile. DISCHARGE MEDICATIONS 1. Combivent Mini neb 1 Mini neb every six hours. 2. Lactulose 20 g p.o. once daily. 3. Tylenol 650 mg p.o. q.6 p.r.n. for pain or fever. 4. Gabapentin 200 mg three times a day. 5. Venlafaxine 150 mg p.o. twice daily. Unit #: [id number] #: [id number] Patient: DAISY MILES 6. Miconazole nitrate 2% powder topically over affected areas under skin folds. 7. Seroquel 25 mg p.o. at bedtime. 8. Metoprolol 25 mg p.o. t.i.d. 9. Furosemide 40 mg twice daily. 10. NovoLog insulin sliding scale coverage. 11. Zinc sulfate 220 mg p.o. daily. 12. Melatonin 3 mg p.o. every evening. 13. Spironolactone 25 mg p.o. twice daily. 14. Protonix 40 mg p.o. daily. 15. Potassium chloride 20 mEq p.o. daily. 16. Macrobid 100 mg p.o. twice daily. 17. Folic acid 1 mg p.o. daily. DISCHARGE INSTRUCTIONS The patient is to be transferred to a [facility] home facility for continued rehabilitation. The patient will be going to [facility] today. Dictated by... Nazanin Oliver TD: 06/22/2017 16:01 JOB #: [id number] DISCHARGE SUMMARY Page 1 of 1 X X DISCHARGE SUMMARY
--- NOTE | ~2017-06-04 | OR ---
Unit #: [id number] #: [id number] Patient: DAISY MILES [id number] [address] [address] [id number] I MR#: [id number] NAME: DAISY MILES ROOM: [facility] Date of Procedure: 06/05/2017 Admission Date: 06/04/2017 Surgeon: Buzz Del Castillo M.D. : 1955 Attending Physician: Joaquina Dubois M.D. Primary Care Physician: Iirna Mclean M.D. PROCEDURE OPERATIVE NOTE PROCEDURE PERFORMED Central line placement INDICATION IV access DETAILS OF THE PROCEDURE After placing the patient in proper position, right side of the neck was prepped with ChloraPrep and with modified Seldinger technique under ultrasound guidance, a triple lumen central venous catheter placed in the right internal jugular vein, all three ports flushed and were working, and guidewire was removed and total line was secured with two interrupted silk sutures in place. Sterile dressing was applied. The patient tolerated the procedure well. Postprocedure chest x-ray was ordered. Dictated by... Nazanin Dorado TD: 06/05/2017 15:11 JOB #: [id number] PROCEDURE OPERATIVE NOTE Page 1 of 1 X Buzz Del Castillo MD X PROCEDURE OPERATIVE NOTE
--- NOTE | ~2017-06-04 | EKG ---
PATIENT: DAISY MILES UNIT #: [id number] Ventricular Rate: 113 BPM Atrial Rate: 113 BPM P-R Interval: 150 ms QRS Duration: 116 ms Q-T Interval: 358 ms QTC Calculation(Bezet): 491 ms P [place]: 65 degrees Calculated R [place]: -57 degrees Calculated T [place]: 83 degrees Diagnosis Line: Sinus tachycardia with occasional Premature Diagnosis Line: ventricular complexes Diagnosis Line: Left anterior fascicular block Diagnosis Line: Left ventricular hypertrophy with QRS widening and Diagnosis Line: repolarization abnormality Diagnosis Line: Possible Lateral infarct , age undetermined Diagnosis Line: Abnormal ECG Diagnosis Line: When compared with ECG of 04-JUN-2017 19:52, Diagnosis Line: (unconfirmed) Diagnosis Line: no new changes noted Diagnosis Line: Confirmed by JABARI PERKINS MD ([id number]) on Diagnosis Line: 06/06/2017 12:19:28 PM INTERPRETING MD: GUILLERMO
--- NOTE | ~2017-06-04 | CR72 ---
[facility] A Service of [facility] & [facility] RADIOLOGY TEXT RESULTS PATIENT: DAISY MILES LOCATION: [address] : [birth year] UNIT #: [id number] AGE: [address]: Joaquina Dubois MD SEX: F ORDER DR: [id number] [facility] [address] [place], [place] [address] [id number] I MR#: [id number] Acc #: [id number] NAME: DAISY MILES : 1955 SEX: F STUDY DATE/TIME: 06/08/2017 4:29 UNIT: [facility] ROOM: [facility] STUDY DESCRIPTION: CR Chest Single View Portable Attending Physician: Joaquina Dubois M.D. Ordering Physician: Chuck Fernando M.D. Primary Care Physician: Irina Mclean M.D. MEDICAL IMAGING REPORT This report is preliminary unless electronic signature is present EXAM Portable chest. INDICATIONS Respiratory failure followup. PROCEDURE Frontal view chest. COMPARISON 06/07/2017 FINDINGS Heart size unchanged. Persistent central vascular congestion and edema pattern. No new dense consolidation. ET tube is unchanged. IMPRESSION Stable. Dictated by... Gume Myers M.D. THIS IS AN ELECTRONICALLY VERIFIED REPORT Gume Myers M.D. at 06/08/2017 10:00 PM EED/zi TD: 06/08/2017 10:36 JOB #: [id number] MEDICAL IMAGING REPORT Page 1 of 1 COPY
--- NOTE | ~2017-06-04 | CR7 ---
[facility] A Service of [facility] RADIOLOGY TEXT RESULTS PATIENT: DAISY MILES [facility] [birth year] UNIT #: [id number] AGE: [address]: Joaquina Dubois MD SEX: F ORDER DR: [id number] [facility] [address] [facility] [place], [place] [address] [id number] I MR#: [id number] Acc #: [id number] NAME: DAISY MILES : 1955 SEX: F STUDY DATE/TIME: 06/05/2017 8:58 UNIT: [facility] ROOM: [facility] STUDY DESCRIPTION: CR Abdomen Single AP View Attending Physician: Joaquina Dubois M.D. Ordering Physician: [facility] Primary Care Physician: Irina Mclean M.D. MEDICAL IMAGING REPORT This report is preliminary unless electronic signature is present EXAM AP view of the abdomen COMPARISON CT abdomen and pelvis dated June 04, 2017. AP chest dated June 05, 2017. HISTORY 62-year-old female. Feeding tube placement today. FINDINGS Feeding tube tip left upper quadrant of the abdomen expected location of the gastric fundus. There is diffuse gaseous distension of small bowel and colon throughout the abdomen in a pattern likely reflecting ileus. Prior cholecystectomy is noted. IMPRESSION 1. Feeding tube tip is in the left upper quadrant of the abdomen, likely near the gastric fundus. 2. Findings most consistent with ileus. Correlation to exclude signs of bowel obstruction. Dictated by... Faisal Price M.D. THIS IS AN ELECTRONICALLY VERIFIED REPORT Faisal Price M.D. at 06/12/2017 4:17 PM BLM/pcl TD: 06/05/2017 14:03 JOB #: [id number] MEDICAL IMAGING REPORT [facility] A Service [facility] & [facility] RADIOLOGY TEXT RESULTS PATIENT: DAISY MILES LOCATION: [facility] : [birth year] UNIT #: [id number] AGE: [address]: Joaquina Dubois MD SEX: F ORDER DR: Page 1 of 1 COPY
--- NOTE | ~2017-06-04 | CR7 ---
[facility] A Service of [facility] RADIOLOGY TEXT RESULTS PATIENT: DAISY MILES [facility]: [facility] [facility] : [birth year] UNIT #: [id number] AGE: [address]: Genaro Ellis MD SEX: F ORDER DR: [id number] [facility] [address] [facility]. [place], [place] [address] [id number] I MR#: [id number] Acc #: [id number] NAME: DAISY MILES : 1955 SEX: F STUDY DATE/TIME: 06/13/2017 11:23 UNIT: [facility] ROOM: [facility] STUDY DESCRIPTION: CR Abdomen Single AP View Attending Physician: Genaro Ellis M.D. Ordering Physician: Chuck Fernando M.D. Primary Care Physician: Irina Mclean M.D. MEDICAL IMAGING REPORT This report is preliminary unless electronic signature is present EXAM Frontal abdomen 06/13/2017 INDICATIONS 62-year-old female with abdominal pain and distension. GI bleed. Symptoms began 06/11/2017. TECHNIQUE Frontal abdomen was performed. COMPARISON 06/11/2017 FINDINGS Enteric tube tip unchanged. Patient is status post median sternotomy. Gaseous distension of large bowel is similar to the prior study. No new mass effect or dilated air-filled loops of bowel. Becerra catheter temperature probe noted. IMPRESSION 1. No significant change from the prior study. Dictated by... Oneal Cole M.D. THIS IS AN ELECTRONICALLY VERIFIED REPORT Oneal Cole M.D. at 06/14/2017 7:09 AM SYLWIA/hailey TD: 06/13/2017 18:40 JOB #: [id number] [facility] A Service [facility] RADIOLOGY TEXT RESULTS PATIENT: DAISY MILES LOCATION: [facility] [facility] : [birth year] UNIT #: [id number] AGE: [address]: Genaro Ellis MD SEX: F ORDER DR: MEDICAL IMAGING REPORT Page 1 of 1 COPY
--- NOTE | ~2017-06-04 | CR72 ---
[facility] A Service of [facility] RADIOLOGY TEXT RESULTS PATIENT: DAISY MILES LOCATION: [place] [address] : [birth year] UNIT #: [id number] AGE: [address]: Joaquina Dubois MD SEX: F ORDER DR: [id number] [place] [address] [facility]. [place], [place] [address] [id number] I MR#: [id number] Acc #: [id number] NAME: DAISY MILES : 1955 SEX: F STUDY DATE/TIME: 06/11/2017 6:02 UNIT: [facility] ROOM: [facility] STUDY DESCRIPTION: CR Chest Single View Portable Attending Physician: Joaquina Dubois M.D. Ordering Physician: Chuck Fernando M.D. Primary Care Physician: Irina Mclean M.D. MEDICAL IMAGING REPORT This report is preliminary unless electronic signature is present EXAM Chest x-ray portable HISTORY Respiratory failure. Endotracheal tube placement. 7 days of symptoms. History of hypertension. COMMENT Single, frontal portable view of the chest timed 0602 on 06/11/2017 compared to 06/10/2017. FINDINGS The endotracheal tube is satisfactory. The cardiac silhouette is borderline and lung volumes are low. There is continued increase in parenchymal markings, probably due to competitive parenchymal crowding and vascular congestion, but I am concerned for more focal airspace disease at the left base and right base medially. Clinical correlation and follow-up to resolution recommended. Please correlate for clinical concern for aspiration or pneumonia. On comparison to prior film, findings are unchanged to slightly improved. No change in the right IJ approach catheter. IMPRESSION No change to slight improvement in bilateral airspace disease. Lung volumes remain quite low. Tubes and lines unchanged. Follow-up to complete clearing recommended. Dictated by... Kayley Mcmahan M.D. THIS IS AN ELECTRONICALLY VERIFIED REPORT [facility] A Service [facility] RADIOLOGY TEXT RESULTS PATIENT: DAISY MILES LOCATION: [facility] : 59 UNIT #: [id number] AGE: [address]: Joaquina Dubois MD SEX: F ORDER DR: Kayley Mcmahan M.D. at 06/11/2017 4:15 PM MAGUI/brian TD: 06/11/2017 13:35 JOB #: [id number] MEDICAL IMAGING REPORT Page 1 of 1 COPY
--- NOTE | ~2017-06-04 | CT69 ---
[facility] A Service of [facility] RADIOLOGY TEXT RESULTS PATIENT: DAISY MILES LOCATION: [address] : [birth year] UNIT #: [id number] AGE: [address]: Joaquina Dubois MD SEX: F ORDER DR: [id number] [facility] [address] [facility]. [place], [place] [address] [id number] I MR#: [id number] Acc #: [id number] NAME: DAISY MILES. : 1955 SEX: F STUDY DATE/TIME: 06/04/2017 18:47 UNIT: [facility] ROOM: [facility] STUDY DESCRIPTION: CT Head W Contrast Attending Physician: Jelani Fernando M.D. Ordering Physician: Buzz Del Castillo M.D. Primary Care Physician: Irina Mclean M.D. MEDICAL IMAGING REPORT This report is preliminary unless electronic signature is present EXAM CT brain with IV contrast HISTORY Acute onset confusion today. TECHNIQUE This CT exam was performed with one or more of the following radiation dose reduction techniques: automatic control, adjustment of mA and/or kV according to patient size, and iterative reconstruction. FINDINGS CT brain with IV contrast demonstrates no intracranial mass or edema or abnormal enhancement. No midline shift or ventricular dilatation or extraaxial fluid collection. No focal atrophy. Mucosal thickening in several bilateral mastoid air cells. Old right lateral frontal craniotomy. IMPRESSION No acute findings Dictated by... Amari Le M.D. THIS IS AN ELECTRONICALLY VERIFIED REPORT Amari Le M.D. at 06/05/2017 6:08 PM DFL/dane TD: 06/05/2017 00:05 JOB #: [id number] MEDICAL IMAGING REPORT [facility] A Service of [facility] RADIOLOGY TEXT RESULTS PATIENT: DAISY MILES LOCATION: [address] : [birth year] UNIT #: [id number] AGE: [address]: Joaquina Dubois MD SEX: F ORDER DR: Page 1 of 1 COPY
--- NOTE | ~2017-06-04 | CR72 ---
[facility] A Service of [facility] RADIOLOGY TEXT RESULTS PATIENT: DAISY MILES LOCATION: [place] [address] : [birth year] UNIT #: [id number] AGE: [address]: Joaquina Dubois MD SEX: F ORDER DR: [id number] [facility] [address] [facility]. [place], [place] [address] [id number] I MR#: [id number] Acc #: [id number] NAME: DAISY MILES : 1955 SEX: F STUDY DATE/TIME: 06/11/2017 16:31 UNIT: [facility] ROOM: [facility] STUDY DESCRIPTION: CR Chest Single View Portable Attending Physician: Joqauina Dubois M.D. Ordering Physician: Joaquina Dubois M.D. Primary Care Physician: Irina Mclean M.D. MEDICAL IMAGING REPORT This report is preliminary unless electronic signature is present EXAM Portable chest. HISTORY Dobbhoff tube placement. FINDINGS Portable view of the chest demonstrates weighted tip of the Dobbhoff feeding tube well below the yanira, near the GE junction. Further advancement into the stomach is recommended. Right neck approach central line remains in place. Low lung volumes with diffuse pulmonary vascular congestion, may represent a component of interstitial and alveolar edema. Dictated by... Cristiane Roger M.D. THIS IS AN ELECTRONICALLY VERIFIED REPORT Cristiane Roger M.D. at 06/12/2017 1:03 PM Vishal TD: 06/12/2017 00:15 JOB #: [id number] MEDICAL IMAGING REPORT Page 1 of 1 COPY
--- NOTE | ~2017-06-04 | EKG ---
PATIENT: DAISY MILES UNIT #: [id number] Ventricular Rate: 106 BPM Atrial Rate: 106 BPM P-R Interval: 166 ms QRS Duration: 94 ms Q-T Interval: 336 ms QTC Calculation(Bezet): 446 ms Calculated R [place]: -54 degrees Calculated T [place]: 69 degrees Diagnosis Line: Sinus tachycardia Diagnosis Line: Left axis deviation Diagnosis Line: Minimal voltage criteria for LVH, may be normal Diagnosis Line: variant Diagnosis Line: Inferior infarct , age undetermined Diagnosis Line: Anterior infarct (cited on or before 05-JUN-2017) Diagnosis Line: Abnormal ECG Diagnosis Line: When compared with ECG of 06-JUN-2017 06:16, Diagnosis Line: QRS duration has decreased Diagnosis Line: Confirmed by KIMI HANEY MD ([id number]) on Diagnosis Line: 06/08/2017 8:30:14 AM INTERPRETING MD: MEDINA CANTU
--- NOTE | ~2017-06-04 | FU ---
[facility] Nutrition Therapy DATE: 06/16/17 Patient: DAISY Partida JD Physician: MARCELO Address: [address] [place] [address] Room/Bed: [address] [place] [address], Zip: [place] [address] Admit Date: 06/04/17 Date of : [birth year] Height: 5 4 Weight: 267 121.3 NUTRITION MONITORING/FOLLOW-UP: Reason: Nutrition follow-up Admitting dx: 62 y/o female admitted with DKA, GIB Anthropometrics: Ht: 64", Wt: 90.7-152 kg since admission, current wt: 121.3 kg, BMI: 45.9 (stage III obese; based on current wt), IBW: 54.5 kg Labs: glucose POC 81-148, Hgb 7.0, other labs WNL Meds: PPI, furosemide, xifaxan, levemir, medium SSI GI: BM 06/15 (liquid, per FMS) Skin: Issues noted, generalized edema Estimated Nutrition Needs: 6387-5620 kcals/day (11-14 kcals/kg CBW) 109-120 g protein/day (2-2.2 g/kg IBW) Fluids consistent with kcal needs or per MD Assessment: Chart reviewed, events noted. Patient has a clear liquid diet ordered, however nursing reports she has been choking on liquids and c/o dysphagia, but she continues to refuse COUNSELLORS evals. COUNSELLORS recommended pt be NPO today due to unable to evaluate and complaints of choking/dysphagia. Patient also refusing to wear Bipap, is on 5L nasal cannula. She has period of confusion as well, is not appropriate for interview at this time. See nutrition dx and goals below, will continue to follow. Dx: Inadequate protein energy intake r/t clinical condition, respiratory distress, dysphagia AEB COUNSELLORS note, ?NPO status, need for EN - ACTIVE Intervention: EN recs below Monitoring, Evaluation and Goals: 1. EN to provide > 80% goal volume/24 hrs - NOT RELEVANT (unless EN restarted) 2. Gradual weight loss - IN PROGRESS (weights varied 90.7-152 kg since admit) 3. GI function will improve - NOT MET (pt still has liquid stools per FMS) 4. Glucose will usually fall WNL - MET (glucose POC 81-148) 5. Tolerance of PO diet advancement once ordered - NOT MET (pt not tolerating clears) No new goals [facility] Nutrition Therapy DATE: 06/16/17 Patient: DAISY MILES Physician: MARCELO Address: [address] Room/Bed: [address] [place] [address], Zip: [place] [address] Admit Date: 06/04/17 Date of : [birth year] Height: 5 4 Weight: 267 121.3 Monitor: per protocol, criteria to determine if above goals met Recommendations: 1. Due to choking episodes on clear liquids and complaints of dysphagia recommend pt be NPO. COUNSELLORS also rec NPO as the patient refused their evaluation. Suggest replacing DHT and restarting enteral nutrition with Glucerna 1.5 @ 20 ml/hr and increase by 10 ml q 4 hours until goal rate of 40 ml/hr is reached. Please order 30 ml Prostat BID to be given per tube to help meet protein needs. This nutrition regimen will provide 1640 kcals, 109 g protein and 729 ml water. Free water flushes per MD once at goal rate. 2. If patient refuses DHT placement she will have to undergo COUNSELLORS evaluation. Advance oral diet per their recs only. If GIB is still active suggest low-fiber dietary restriction. Add 6 small meals to diet order given hx of gastroparesis. If glucose becomes elevated she will require 60g carb restriction as well. 3. Suggest adding Loperamide to medication regimen to control diarrhea. Status: Moderate nutrition risk Respectfully, Chandni Benitez, RD, LD [facility] Services [facility] cc: client file
--- NOTE | ~2017-06-04 | CR72 ---
[facility] A Service of [facility] RADIOLOGY TEXT RESULTS PATIENT: DAISY MILES LOCATION: [address] : [birth year] UNIT #: [id number] AGE: [address]: Joaquina Dubois MD SEX: F ORDER DR: [id number] [place] [id number] [facility]. [place], [place] [address] [id number] I MR#: [id number] Acc #: [id number] NAME: DAISY MILES : 1955 SEX: F STUDY DATE/TIME: 06/05/2017 6:16 UNIT: [facility] ROOM: [facility] STUDY DESCRIPTION: CR Chest Single View Portable Attending Physician: Joaquina Dubois M.D. Ordering Physician: [facility] Primary Care Physician: Irina Mclean M.D. MEDICAL IMAGING REPORT This report is preliminary unless electronic signature is present EXAM Portable AP view of chest COMPARISON June 04, 2017; April 04, 2017; and March 16, 2016. INDICATIONS 62-year-old female with lower chest pain and nausea today. Respiratory failure requiring ventilatory support. Evaluate endotracheal tube and central venous catheter. FINDINGS IMPRESSION Endotracheal tube again noted, the tip terminates 2.6 cm above the yanira. The right internal jugular catheter again terminates in the right atrium. Consider retraction by approximately 5 cm. There are low lung volumes. No evidence of pneumothorax or pleural effusion. Lung volumes are actually diminished from comparison study with increasing linear opacities emanating from both marck, most consistent with bronchovascular crowding and atelectasis. Cardiomediastinal silhouette within normal limits for low lung volumes and technical factors. Dictated by... Faisal Price M.D. THIS IS AN ELECTRONICALLY VERIFIED REPORT Faisal Price M.D. at 06/11/2017 9:11 PM BLM/pcl TD: 06/05/2017 11:17 JOB #: [id number] [facility] A Service of [facility] RADIOLOGY TEXT RESULTS PATIENT: DAISY MILES LOCATION: [address] : [birth year] UNIT #: [id number] AGE: [address]: Joaquina Dubois MD SEX: F ORDER DR: MEDICAL IMAGING REPORT Page 1 of 1 COPY
--- NOTE | ~2017-06-04 | CR72 ---
[facility] A Service of [facility] RADIOLOGY TEXT RESULTS PATIENT: DAISY MILES LOCATION: [place] [address] : [birth year] UNIT #: [id number] AGE: [address]: Joaquina Dubois MD SEX: F ORDER DR: [id number] [facility] [address]. [place], [place] [address] [id number] I MR#: [id number] Acc #: [id number] NAME: DAISY MILES : 1955 SEX: F STUDY DATE/TIME: 06/12/2017 03:56 UNIT: [facility] ROOM: [facility] STUDY DESCRIPTION: CR Chest Single View Portable Attending Physician: Joaquina Dubois M.D. Ordering Physician: Buzz Del Castillo M.D. Primary Care Physician: Irina Mclean M.D. MEDICAL IMAGING REPORT This report is preliminary unless electronic signature is present EXAM Portable chest, 06/12 at 03:56 INDICATION Respiratory failure for 8 days. Anemia. FINDINGS AP portable chest is compared with 06/11/2017. Cardiomegaly is stable. Lung volumes remain low. There is a mild degree of residual edema and there are trace effusions. No pneumothorax is seen. Right-sided central venous catheter tip remains at the right atrial level. Dictated by... Jaleel Oleary Jr., M.D. THIS IS AN ELECTRONICALLY VERIFIED REPORT Jaleel Oleary Jr., M.D. at 06/12/2017 9:24 PM JAMES/courtney TD: 06/12/2017 16:02 JOB #: [id number] MEDICAL IMAGING REPORT Page 1 of 1 COPY
--- NOTE | ~2017-06-04 | CR6 ---
[facility] A Service of [facility] RADIOLOGY TEXT RESULTS PATIENT: DAISY MILES LOCATION: A - : [birth year] UNIT #: [id number] AGE: [address]: Genaro Ellis MD SEX: F ORDER DR: [id number] [facility] [address] [facility] [address] [place], [place] [address] [id number] I MR#: [id number] Acc #: [id number] NAME: DAISY MILES. : 1955 SEX: F STUDY DATE/TIME: 06/15/2017 6:02 [facility] ROOM: [facility] STUDY DESCRIPTION: CR Abdomen Portable Sng View Attending Physician: Genaro Ellis M.D. Ordering Physician: Jennifer Jewell M.D. Primary Care Physician: Irina Mclean M.D. MEDICAL IMAGING REPORT This report is preliminary unless electronic signature is present Abdomen 06/15/2017 HISTORY 62-year-old female with Dobbhoff tube placement today for abdominal pain and distension. GI bleed beginning 06/11/2017. FINDINGS Frontal supine abdomen demonstrates a weighted enteric feeding tube with tip projecting over the proximal body of the stomach. Right internal jugular central venous catheter again noted with tip projecting over the right atrium. Visualized bowel gas pattern nonobstructive. IMPRESSION Weighted enteric feeding tube tip projects over the proximal body of the stomach. Dictated by... Augustin Leonard M.D. THIS IS AN ELECTRONICALLY VERIFIED REPORT Augustin Leonard M.D. at 06/16/2017 7:17 AM JENNIFER/brian TD: 06/15/2017 10:40 JOB #: [id number] MEDICAL IMAGING REPORT Page 1 of 1 COPY
--- NOTE | ~2017-06-04 | US8 ---
[facility] A Service of [facility] RADIOLOGY TEXT RESULTS PATIENT: DAISY MILES LOCATION: [address]- : [birth year] UNIT #: [id number] AGE: [address]: Genaro Ellis MD SEX: F ORDER DR: [id number] [facility] [address] [place], [place] [address] [id number] I MR#: [id number] Acc #: [id number] NAME: DAISY MILES : 1955 SEX: F STUDY DATE/TIME: 06/12/2017 16:59 UNIT: [facility] ROOM: [facility] STUDY DESCRIPTION: US Abdominal Wall/Quadrant Attending Physician: Genaro Ellis M.D. Ordering Physician: Luis Jung M.D. Primary Care Physician: Irina Mclean M.D. MEDICAL IMAGING REPORT This report is preliminary unless electronic signature is present EXAM Limited abdominal sonogram to assess for ascites. HISTORY: 62-year-old female with alcoholic hepatitis, abdominal distention 8 days. FINDINGS Limited valuation of the abdomen demonstrates a trace amount of ascites in the right upper quadrant. No other significant fluid collections are identified. IMPRESSION A trace amount of ascites right upper quadrant. Dictated by... Cristiane Roger M.D. THIS IS AN ELECTRONICALLY VERIFIED REPORT Cristiane Roger M.D. at 06/14/2017 1:33 PM ALEKSANDRA/linda TD: 06/13/2017 07:48 JOB #: [id number] MEDICAL IMAGING REPORT Page 1 of 1 COPY
--- NOTE | ~2017-06-04 | OR ---
Unit #: [id number] #: [id number] Patient: DAISY MILES [id number] [address] [place], [place] [address] [id number] I MR#: [id number] NAME: DAISY MILES. ROOM: [facility] Date of Procedure: 06/05/2017 Admission Date: 06/04/2017 Surgeon: Luis Jung M.D. : 1955 Attending Physician: Joaquina Dubois M.D. Primary Care Physician: Irina Mclean M.D. OPERATIVE REPORT PROCEDURE PERFORMED Esophagogastroduodenoscopy with variceal banding, Dobbhoff tube placement. INDICATIONS FOR PROCEDURE A 62-year-old female with history of liver cirrhosis secondary to PRUETT, presented with severe upper GI bleeding and anemia, possible variceal, undergoing evaluation for upper endoscopy. MEDICATIONS Monitored anesthesia. POSTOPERATIVE FINDINGS 1. Two cores of prominent varices seen in distal esophagus. Two bands were placed. 2. A lot of blood and clots in the stomach which was clean. No active bleeding seen in the stomach. No gastric varices seen. 3. Normal duodenum and distal duodenum. PLAN We will continue aggressive medical management in the ICU. DESCRIPTION OF PROCEDURE The patient was explained of the procedure, risks, and benefits. Informed consent obtained from caretakers. Endo team was brought to the ICU. The patient was already intubated and sedated, extra sedation was given. Scope was passed down the mouth into the esophagus, stomach, duodenum, and distal duodenum. Findings as described. Two bands were placed in distal esophagus. Gently, the scope was pulled out. Dobbhoff tube was then placed while watching through the scope and left in place. The scope was then carefully withdrawn. She tolerated it well. No major complications were seen. Dictated by... Nazanin Mayer/tani TD: 06/05/2017 22:55 JOB #: [id number] Unit #: [id number] #: [id number] Patient: DAISY MILES OPERATIVE REPORT Page 1 of 1 X Luis Jung MD PROCEDURE OPERATIVE NOTE
--- NOTE | ~2017-06-04 | FU ---
[facility] Nutrition Therapy DATE: 06/21/17 Patient: DAISY Partida JD Physician: MARCELO Address: [address] [place] [address] Room/Bed: [address] [place] [address], Zip: [place] [address] Admit Date: 06/04/17 Date of : [birth year] Height: 5 4 Weight: 267 121.3 NUTRITION MONITORING/FOLLOW-UP: Reason: PT SEEN FOR FOLLOW-UP DX: DKA, GIB Anthropometrics: 5'4", WT: 267# (121 KG), BMI: 45.8 -WEIGHTS HAVE RANGED 198-334# SINCE ADMIT Labs: K+:3.4, GLU: 133, BUN: 6, CA+:7.7, ALB: 2.0 Meds: PROTONIX, FUROSEMIDE, LACTULOSE, FOLIC ACID, NOVOLOG, KCL, CYANOCOBALAMIN I&O's: 1840/1652, 1 BM NOTED Skin: SKIN FOLDS UNDER BILATERAL BREASTS & ABD AREA EDEMA: BLE TRACE; BUE TRACE; TRUNK GENERALIZED EDEMA Estimated Nutrition Needs: [phone] KCAL 109-120 G PRO Assessment: CHART REVIEWED AND EVENTS NOTED. PT SEEN FOR FOLLOW-UP. PT SLEEPY & LETHARGIC AT TIME OF VISIT REPORTING FAIR PO INTAKE AND APPETITE, NOTING NO C/O N/V/D. PT REPORTS "NOT FEELING HUNGRY UNTIL LUNCHTIME". PT ADDS THAT LIKES DRINKING LIQUIDS. SHE STATES SHE ATE HALF TURKEY SANDWICH FOR DINNER LAST NIGHT. THIS RD ENCOURAGED SMALL FREQUENT MEALS (ENCOURAGING EATING BREAKFAST) + SUPPLEMENT INTAKE, PT AGREED TO GLUCERNA SHAKES BID, RD TO ORDER. PER RN AND CHART, ?REHAB PLACEMENT SOON. PT REPORTED NO DIET QUESTIONS AT THIS TIME. RD TO CONTINUE TO FOLLOW. 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 Intervention: 1. CC DIET + THINS 2. GLUCERNA SHAKES BID Monitoring, Evaluation and Goals: 1. EN TO PROVIDE >80% GOAL VOLUME/24 HOURS-UNMEASURED 2. GRADUAL WEIGHT LOSS-IN PROGRESS-WEIGHTS HAVE VARIED SINCE ADMIT 3. GI FUNCTION TO IMPROVE-NOT MET/IN PROGRESS 4. GLUCOSE WNL-MET 5. TOLERANCE OF PO ADVANCEMENT ONCE ORDERED-IN PROGRESS (PT REPORTS FAIR PO INTAKE; [facility] Nutrition Therapy DATE: 06/21/17 Patient: DAISY MILES Physician: MARCELO [address] Room/Bed: [address] [place] [address], Zip: [place] [address] Admit Date: 06/04/17 Date of : [birth year] Height: 5 4 Weight: 267 121.3 TOLERATING LIQUIDS AND BITES OF SOLIDS) NO NEW GOALS MONITOR: PER PROTOCOL, CRITERIA TO DETERMINE IF ABOVE GOALS MET Recommendations: 1. PLEASE ORDER SENAIT/STRAWBERRY GLUCERNA SHAKES BID W/MEALS FOR ADDITIONAL PROTEIN AND KCAL 2. CONTINUE TO ENCOURAGE ADEQUATE PO AND SUPPLEMENT INTAKE. PROVIDE ASSISTANCE W/ORDERING MEALS NEEDED 3. PLEASE ADD 6 SMALL MEALS TO CURRENT DIET ORDER ABOVE RD WILL F/U PER PROTOCOL PT IS MILD/MODERATELY COMPROMISED Respectfully, MAIKOL ARORA MS, RD, LD Food and Nutritional Services [facility] cc: client file
--- NOTE | ~2017-06-04 | CO ---
Unit #: [id number] #: [id number] Patient: DAISY MILES [id number] [address] [address] [id number] I MR#: [id number] NAME: DAISY MILES. ROOM: [facility] Age: 62 Sex: F Admission Date: 06/04/2017 : 1955 Attending Physician: Joaquina Dubois M.D. Primary Care Physician: Irina Mclean M.D. Consultation Date: 06/04/2017 CONSULTATION REPORT REASON FOR CONSULTATION Critical care management. CHIEF COMPLAINT Gastrointestinal bleed. HISTORY OF PRESENT ILLNESS A 62-year-old female with a past medical history of esophageal varices, coronary artery disease, congestive heart failure, hypertension, diabetes mellitus, seizure, pulmonary hypertension, COPD, and continued tobacco use, presented with the complaint of altered mental status, lethargy, and possible GI bleed, along with abdominal pain. She was brought to the emergency room in acute respiratory distress and was intubated by myself with a slightly difficult intubation. No complications happened. Patient was found to be in diabetic ketoacidosis and severe anemia with hemoglobin of 5.5. She was started on insulin and is currently being transfused. I am seeing her at the bedside currently intubated and sedated. PAST MEDICAL HISTORY As described above. PAST SURGICAL HISTORY 1. Cardiac catheterization. 2. EGD and colonoscopy. 3. Appendectomy. 4. Cholecystectomy. 5. Right knee replacement. 6. Meningioma removal. SOCIAL HISTORY Lives with mother and sister. Continues to smoke a pack of cigarettes daily. FAMILY HISTORY Hypertension. ALLERGIES Cephalosporin and latex. MEDICATIONS 1. Reglan. 2. Aspirin. 3. Metoprolol. 4. Flexeril. Unit #: [id number] #: [id number] Patient: DAISY MILES 5. Bumex. 6. Cartia. 7. Tradjenta. 8. Protonix. 9. Calcium. 10. Stool softener. 11. Zofran. REVIEW OF SYSTEMS Unobtainable. PHYSICAL EXAMINATION VITAL SIGNS: Temperature 98, pulse 100, respirations 20, and blood pressure 150/70. NEUROLOGIC: Sedated and intubated. CARDIOVASCULAR: S1 plus S2. CHEST: Bilateral rhonchi. GASTROINTESTINAL: Nontender and soft. Bowel sounds positive. Distended abdomen. EXTREMITIES: No edema. DIAGNOSTIC STUDIES LABORATORY: Reviewed. IMAGING: Reviewed. ASSESSMENT 1. Acute respiratory failure. 2. Gastrointestinal bleed. 3. Acute blood loss anemia. 4. Diabetic ketoacidosis. 5. Hyponatremia. 6. Critically ill patient. PLAN The plan is to continue ventilator support, transfuse PRBCs, GI consultation, and PPI. Will continue to monitor hemoglobin and hematocrit, follow labs, and follow with Gastroenterology. Further recommendations to follow pending the hospital course. Patient will be closely monitored. Please see orders for detailed plans. Total critical care time is 55 minutes in direct critical care of this patient. Dictated by... Nazanin Dorado/alie TD: 06/05/2017 15:14 JOB #: [id number] Unit #: [id number] #: [id number] Patient: DAISY MILES CONSULTATION REPORT Page 1 of 1 X Buzz Del Castillo MD X CONSULTATION REPORT
--- NOTE | ~2017-06-04 | EKG ---
PATIENT: DAISY MILES UNIT #: [id number] Ventricular Rate: 128 BPM Atrial Rate: 128 BPM P-R Interval: 160 ms QRS Duration: 94 ms Q-T Interval: 312 ms QTC Calculation(Bezet): 455 ms P [place]: 40 degrees Calculated R [place]: -41 degrees Calculated T [place]: 88 degrees Diagnosis Line: Sinus tachycardia with Premature supraventricular Diagnosis Line: complexes Diagnosis Line: Left axis deviation Diagnosis Line: Left ventricular hypertrophy with repolarization Diagnosis Line: abnormality Diagnosis Line: Inferior infarct , age undetermined Diagnosis Line: Abnormal ECG Diagnosis Line: Diagnosis Line: Confirmed by MATILDE MCCOLLUM MD ([id number]) on Diagnosis Line: 06/05/2017 5:41:27 PM INTERPRETING MD: VEDA CANTU
--- NOTE | ~2017-06-04 | CR72 ---
[facility] A Service of [facility] & [facility] RADIOLOGY TEXT RESULTS PATIENT: DAISY MILES LOCATION: [facility] CICCU3-19 : [birth year] UNIT #: [id number] AGE: [address]: NICOL FERNANDO MD SEX: F ORDER DR: [id number] [facility] [address] [place], [place] [address] [id number] I MR#: [id number] Acc #: [id number] NAME: DAISY MILES. : 1955 SEX: F STUDY DATE/TIME: 06/04/2017 13:45 UNIT: CEDOF ROOM: [id number] STUDY DESCRIPTION: CR Chest Single View Portable Attending Physician: Nicol Fernando M.D. Ordering Physician: Buzz Del Castillo M.D. Primary Care Physician: Irina Mclean M.D. MEDICAL IMAGING REPORT This report is preliminary unless electronic signature is present EXAM Portable chest. HISTORY ET tube placement, central line placement and shortness of air today. FINDINGS ETT tip is 3 cm above the yanira. Right IJ central line tip is in the right atrium 4 cm beyond the junction SVC and right atrium. Low lung volumes. No airspace infiltrates. No pleural effusions. Remainder of the chest is unremarkable. No pneumothorax. Dictated by... Amari Le M.D. THIS IS AN ELECTRONICALLY VERIFIED REPORT Amari Le M.D. at 06/04/2017 10:08 PM TONIA/barbara TD: 06/04/2017 17:54 JOB #: [id number] MEDICAL IMAGING REPORT Page 1 of 1 COPY
--- NOTE | ~2017-06-04 | CO ---
Unit #: [id number] #: [id number] Patient: DAISY MILES [id number] [address] [address] [id number] I MR#: [id number] NAME: DAISY MILES ROOM: [facility] Age: 62 Sex: F Admission Date: 06/04/2017 : 1955 Attending Physician: Joaquina Dubois M.D. Primary Care Physician: Irina Mclean M.D. Consultation Date: 06/05/2017 CONSULTATION REPORT PRIMARY CARE PHYSICIAN Irina Mclean M.D. REASON FOR CONSULTATION GI bleeding. HISTORY OF PRESENTING ILLNESS Ms. Rodriguez is a 62-year-old female. She presented to the emergency room yesterday after an episode of GI bleeding and were very agitated and severely anemic. She had to be intubated. Currently, she remains intubated on a ventilator and unable to give any history. History was mostly from the family as well as chart review and nurses. She has a history of liver cirrhosis, and had variceal banding done in 02/2017. Her cirrhosis appears to be secondary to PRUETT. The patient was noted to be also be confused in the emergency room before intubation. PAST MEDICAL HISTORY Significant for history of anemia secondary to cirrhosis and esophageal varices bleeding, also with coronary artery disease, congestive heart failure. She has type 2 diabetes mellitus, morbid obesity, and COPD. SOCIAL HISTORY Apparently, no history of alcohol use or drug abuse. She is a smoker. FAMILY HISTORY Unable to obtain. REVIEW OF SYSTEMS Unable to obtain. ALLERGIES To cephalosporins and latex. BODY AFTER AXIS MEDICATIONS At home included Reglan, aspirin, metoprolol, Flexeril, Protonix, and Zofran. PHYSICAL EXAMINATION GENERAL: At this time, she is intubated and hemodynamically stable. HEENT: Pupils are equal and reactive. Anicteric. Oral mucosa moist. NECK: No JVD. No lymphadenopathy. Unit #: [id number] #: [id number] Patient: DAISY MILES CHEST: Few scattered rhonchi. CARDIOVASCULAR: Regular rate and rhythm. No murmurs. ABDOMEN: Distended. Bowel sounds present. No tenderness or masses palpable. EXTREMITIES: Trace edema. NEUROLOGIC: Deferred. DIAGNOSTIC STUDIES LABORATORY RESULTS: Chemistry showed BUN 30, creatinine 0.9. Bilirubin total of 0.9, AST 25, ALT 20, alkaline phosphatase of 113. Ammonia level was at 50. Coags were normal. CBC with a hemoglobin on arrival of 5.5, after 2 units 7.1. She has 2 more units since then. White count at 26,000 and platelet count of 240. ASSESSMENT AND PLAN 1. The patient with severe anemia, gastrointestinal bleeding, history of cirrhosis, and varices in the past, most likely recurrent variceal bleeding. I have put her on Sandostatin and Protonix infusions already. We will plan on doing an upper endoscopy today. She is hemodynamically stable at this point. 2. Anemia of acute blood loss. We will continue transfusion as needed. 3. Early hepatic encephalopathy. 4. Respiratory failure, on ventilator. 5. There was significant colonic wall diffuse swelling with some stranding, no ascites was noted, possible colitis. There is no clear source of upper gastrointestinal bleeding. Colonoscopy to be considered. Again, we will continue with broad-spectrum antibiotics for now. Thank you, Dr. Fernando for this interesting consult. We will follow along. Dictated by... Nazanin Mayer/tani TD: 06/06/2017 12:38 JOB #: [id number] CONSULTATION REPORT Page 1 of 1 X Luis Jung MD X CONSULTATION REPORT
--- NOTE | ~2017-06-04 | CT2 ---
[facility] A Service of [facility] & [facility] RADIOLOGY TEXT RESULTS PATIENT: DAISY MILES LOCATION: [address]-19 : [birth year] UNIT #: [id number] AGE: [address]: Joaquina Dubois MD SEX: F ORDER DR: [id number] [facility] [address] [place], [place] [address] [id number] I MR#: [id number] Acc #: [id number] NAME: DAISY MILES : 1955 SEX: F STUDY DATE/TIME: 06/04/2017 18:32 UNIT: [facility] ROOM: [facility] STUDY DESCRIPTION: CT Abd and Pelv W Cont Attending Physician: Jelani Fernando M.D. Ordering Physician: Buzz Del Castillo M.D. Primary Care Physician: Irina Mclean M.D. MEDICAL IMAGING REPORT This report is preliminary unless electronic signature is present EXAM CT abdomen and pelvis with IV contrast HISTORY GI bleed today. Abdomen pain. TECHNIQUE This CT exam was performed with one or more of the following radiation dose reduction techniques: automatic control, adjustment of mA and/or kV according to patient size, and iterative reconstruction. FINDINGS CT abdomen and pelvis was performed with IV contrast. CT ABDOMEN: Minimal atelectasis in the posterior lung bases. Mildly nodular hepatic contour suggesting morphologic changes of cirrhosis with mild splenomegaly measuring just over 14 cm in length. Left adrenal myelolipoma is unchanged compared to CT 08/13/2016, measuring 5.0 cm x 4 cm x 4 cm in AP, transverse and craniocaudal dimensions. Moderately extensive diffuse colonic wall thickening with mild pericolonic stranding, suggesting infectious or inflammatory colitis. No ascites. No abscess. No bowel obstruction. Right adrenal gland is normal. Both kidneys are unremarkable. Normal caliber abdominal aorta. CT PELVIS: Moderate diffuse wall thickening of the sigmoid colon and rectum. Appendectomy. The uterus and adnexa are unremarkable. Becerra catheter in the bladder. IMPRESSION 1. Moderately extensive diffuse wall thickening of the entire colon and rectum with adjacent pericolonic stranding suggesting infectious or inflammatory proctocolitis. 2. No bowel obstruction. [facility]. [facility] A Service of [facility] & [facility] RADIOLOGY TEXT RESULTS PATIENT: DAISY MILES [facility] 59 UNIT #: [id number] AGE: [address]: Joaquina Dubois MD SEX: F ORDER DR: 3. No ascites or abscess. 4. Left adrenal myelolipoma is stable compared to 08/13/2016 measuring 5 cm in maximal dimension. 5. Morphologic changes of cirrhosis with mild splenomegaly. Dictated by... Amari Le M.D. THIS IS AN ELECTRONICALLY VERIFIED REPORT Amari Le M.D. at 06/05/2017 6:08 PM TONIA/dane TD: 06/05/2017 00:24 JOB #: [id number] MEDICAL IMAGING REPORT Page 1 of 1 COPY
--- NOTE | ~2017-06-04 | HP ---
Unit #: [id number] #: [id number] Patient: DAISY MILES [id number] [address] [address] [id number] I MR#: [id number] NAME: DAISY MILES ROOM: 6[address]63 Age: 62 Sex: F Admission Date: 06/04/2017 : 1955 Attending Physician: Nicol Fernando M.D. Primary Care Physician: Irina Mclean M.D. HISTORY AND PHYSICAL CHIEF COMPLAINT GI bleed. HISTORY OF PRESENT ILLNESS The patient is a 62-year-old female with a past medical history of esophageal varices, nonalcoholic hepatitis, diabetes, coronary artery disease, CHF, hypertension, meningioma, COPD, gastroparesis, was recently discharged from the hospital in February, brought to the emergency room complaining of the stomach pain and the melena. The patient is status post intubation and the history is obtained by speaking to the patient's family that is her mother and the sister. The patient was not feeling well since Tuesday with decreased oral intake and with elevated sugars. The patient was found to be in DKA with an anion gap of 14 in the emergency room. The patient's hemoglobin is down to 5.5 and is being admitted. In the emergency room, the patient became more confused with increased secretions and is being intubated for the airway protection. No further history is available. PAST MEDICAL HISTORY History of acute blood loss anemia, esophageal varices, coronary artery disease, congestive heart failure, hypertension, diabetes, seizures following meningioma removal, pulmonary hypertension, COPD with continued tobacco abuse. PAST SURGICAL HISTORY Cardiac catheterization, EGD and colonoscopy, appendectomy, cholecystectomy, right knee replacement, meningioma removal. SOCIAL HISTORY The patient lives with her mother and sister. She continues to smoke a pack of cigarettes daily. She denies alcohol use. Her CODE status is FULL CODE. FAMILY HISTORY Notable for mother having hypertension. ALLERGIES Cephalosporin and latex. HOME MEDICATION The patient is on: 1. Reglan. 2. Aspirin. 3. Metoprolol. Unit #: [id number] #: [id number] Patient: DAISY MILES 4. Flexeril. 5. Bumex. 6. Venlafaxine. 7. Cartia XT. 8. Tradjenta. 9. Protonix. 10. Calcium. 11. Stool softener. 12. Zofran. REVIEW OF SYMPTOMS Unable to obtain. PHYSICAL EXAMINATION GENERAL APPEARANCE: The patient is lying on a bed, not in acute distress. VITAL SIGNS: Temperature 98.2. Pulse 106. Respiratory rate 16. Blood pressure 159/65. Sating 100% at room air. HEENT: Head: Atraumatic, normocephalic. ENT: Pupils equal, round, reacting to light and accommodation. NECK: Status post tracheal intubation. LUNGS: Coarse breath sounds. Decreased air entry at the bases. No rhonchi. No wheezing. ABDOMEN: Soft. Positive bowel sounds. Distended. EXTREMITIES: No cyanosis. No clubbing. NEUROLOGIC: Status post intubation and sedation. DIAGNOSTIC STUDIES LABORATORY: Glucose (1) , ammonia 50. ABG shows pH of 7.5, pCO2 21, pO2 468, bicarb 17.2. WBC 29.9, hemoglobin 5.5, hematocrit 20.1, platelets 330. INR is 1.2. Sodium 132, potassium 3.8, chloride 101, bicarb 17, glucose 456, BUN 31, creatinine 0.9, calcium 8. AST 39, ALT 22, alkaline phosphatase 135. IMAGING: Chest x-ray shows status post intubation with the (2) and right central jugular line in place and no acute pulmonary or cardiopulmonary pathology. ASSESSMENT 1. GI bleed. 2. DKA. 3. Acute respiratory failure. 4. Hyponatremia. PLAN To admit the patient to the inpatient ICU. The patient was seen by the Critical Care. Continue with the vent management with Critical Care and patient will be seen by GI for his esophageal varices and possible upper endoscopy with banding and continue with the insulin drip and DKA protocol and Endocrine consult for the uncontrolled sugars. Check the lactic acid level and start the patient on a sepsis protocol and further recommendations will follow as more lab results are available. Dictated by Nazanin Li Unit #: [id number] #: [id number] Patient: DAISY MILES TD: 06/04/2017 17:23 JOB #: [id number] HISTORY AND PHYSICAL Page 1 of 1 X NICOL FERNANDO MD HISTORY AND PHYSICAL
--- NOTE | ~2017-06-04 | EKG ---
PATIENT: DAISY MILES UNIT #: [id number] Ventricular Rate: 90 BPM Atrial Rate: 90 BPM P-R Interval: 176 ms QRS Duration: 100 ms Q-T Interval: 370 ms QTC Calculation(Bezet): 452 ms P Capac: 91 degrees Calculated R Capac: -44 degrees Calculated T Capac: 86 degrees Diagnosis Line: Normal sinus rhythm Diagnosis Line: Left axis deviation Diagnosis Line: Left ventricular hypertrophy with repolarization Diagnosis Line: abnormality Diagnosis Line: Poor R wave progression questionable lead position Diagnosis Line: or body habitus vs changes related to LAHB Diagnosis Line: Abnormal ECG Diagnosis Line: When compared with ECG of 08-JUN-2017 06:10, Diagnosis Line: (unconfirmed) Diagnosis Line: Questionable change in initial forces of Diagnosis Line: Anterolateral leads Diagnosis Line: Confirmed by NETTA AMEZQUITA MD ([id number]) on 06/09/2017 Diagnosis Line: 7:58:40 PM INTERPRETING MD: ALIRIO CANTU
[~2017-06-04 08:52] MED LIST changes: +BUMEX2 MG PO; +CALCIUM STOOL240 M1 PO; +CARTIA XT240 M1 PO; +STOOL SOFTENER1 EAC1 PO; +TRADJENTA5 MG PO; +ZOFRANODT PO
[2017-06-04 10:40] LABS: HEMATOCRIT 20.1 % (35.0-45.0); LYMPHOCYTE# 1.3 X10e3 (1.0-3.5); LYMPHOCYTE% 4.3 % (17.0-45.0); MEAN CELL VOLUME 69.4 FL (83-96); MEAN CORPUSCULAR HEMOGLOBIN 18.9 PG (28-34); MEAN CORPUSCULAR HGB CONC 27.2 g/dL (30-36); MEAN PLATELET VOLUME 9.4 FL (6.5-11.5); MONOCYTE# 1.7 X10e3 (0-1.0); MONOCYTE% 5.6 % (3.0-12.0); NEUTROPHIL# 26.9 X10e3 (1.5-7.1); NEUTROPHIL% 90.1 % (40-75); PLATELET COUNT 330 X10e3 (140-420); RED BLOOD COUNT 2.89 X10e (3.90-5.30); RED CELL DISTRIBUTION WIDTH 20.5 % (11.0-15.5); WHITE BLOOD COUNT 29.9 X10e3 (4.0-10.5)
[2017-06-04 10:45] LABS: DIFF IND YES; HEMOGLOBIN 5.5 gm/dL (12.0-16.0)
[2017-06-04 10:49] LABS: INR 1.2; PARTIAL THROMBOPLASTIN TIME 24.5 SECONDS (23.5-31.3)
[2017-06-04 11:00] LABS: ALBUMIN SERUM 2.5 g/dL (3.5-5.0); BILIRUBIN, DIRECT 0.1 mg/dL (0.0-0.2); BILIRUBIN,INDIRECT 0.6 mg/dL (0.0-0.9); BILIRUBIN,TOTAL 0.7 mg/dL (0.2-2.0); BUN/CREATININE RATIO 34.44; CREATININE SERUM 0.9 mg/dL (0.6-1.4); GLOM FILT RATE Estimated 69.5 mL/min (>60); POTASSIUM 3.8 mmol/L (3.5-5.1); PROTEIN TOTAL SERUM 6.4 g/dL (6.0-8.3)
[2017-06-04 11:15] LABS: ANISOCYTOSIS MOD; MICROCYTOSIS MOD; PLATELET ESTIMATE NORMAL (NORMAL)
[2017-06-04 11:16] LABS: HYPOCHROMIA MOD
[2017-06-04 11:17] LABS: POIKILOCYTOSIS SL; STOMATOCYTE PRESENT
[2017-06-04 14:03] LABS: ARTERIAL BLD GAS O2 SATURATION 97.6 % (90.0-100.0); ARTERIAL BLOOD GAS CARBOXY HB 1.3 %sat (0.0-9.0); ARTERIAL BLOOD GAS HCO3 17.2 mmol/L; ARTERIAL BLOOD GAS MET HB 1.7 %sat (0.0-2.0); ARTERIAL BLOOD GAS PCO2 21.3 mmHg (35.0-45.0); ARTERIAL BLOOD GAS pH 7.515 (7.350-7.450)
[2017-06-04 14:08] LABS: ARTERIAL BLOOD GAS ALLEN TEST NORMAL; ARTERIAL BLOOD GAS ART SITE RIGHT RADIAL; ARTERIAL BLOOD GAS VENT MODE A/C; ARTERIAL DRAW? YES
[2017-06-04 20:41] LABS: BUN/CREATININE RATIO 42.5; CALCIUM SERUM 7.8 mg/dL (8.4-10.2); CREATININE SERUM 0.8 mg/dL (0.6-1.4); GLOM FILT RATE Estimated 80.2 mL/min (>60); MAGNESIUM 1.4 mg/dL (1.6-3.0); PHOSPHOROUS 3.2 mg/dL (2.5-4.6); POTASSIUM 3.3 mmol/L (3.5-5.1)
[2017-06-04] MEDS ORDERED: LOPRESSOR PO (20:41)
[2017-06-04] MEDS ORDERED: REGLAN10 MG PO (20:42)
[2017-06-04 22:24] LABS: INR 1.2; PARTIAL THROMBOPLASTIN TIME 26.9 SECONDS (23.5-31.3); PROTHROMBIN TIME (PATIENT) 13.4 SECONDS (10.0-11.7)
[2017-06-04 22:26] LABS: CK TOTAL 29 IU/L (26-140)
[2017-06-04 23:03] LABS: BASOPHIL% 0.2 % (0-2.5); HEMATOCRIT 23.3 % (35.0-45.0); HEMOGLOBIN 7.1 gm/dL (12.0-16.0); LYMPHOCYTE# 2.9 X10e3 (1.0-3.5); LYMPHOCYTE% 10.7 % (17.0-45.0); MEAN CELL VOLUME 72.8 FL (83-96); MEAN CORPUSCULAR HGB CONC 30.3 g/dL (30-36); MEAN PLATELET VOLUME 9.6 FL (6.5-11.5); MONOCYTE# 3.6 X10e3 (0-1.0); MONOCYTE% 13.6 % (3.0-12.0); NEUTROPHIL# 20.1 X10e3 (1.5-7.1); NEUTROPHIL% 75.5 % (40-75); PLATELET COUNT 248 X10e3 (140-420); RED CELL DISTRIBUTION WIDTH 24.2 % (11.0-15.5); WHITE BLOOD COUNT 26.7 X10e3 (4.0-10.5)
[2017-06-04 23:04] LABS: DIFF IND NO
[2017-06-04 23:12] LABS: BUN/CREATININE RATIO 36.66; CALCIUM SERUM 7.7 mg/dL (8.4-10.2); CREATININE SERUM 0.9 mg/dL (0.6-1.4); GLOM FILT RATE Estimated 69.5 mL/min (>60); POTASSIUM 3.1 mmol/L (3.5-5.1)
[2017-06-05 04:48] LABS: ARTERIAL BLOOD GAS CARBOXY HB 1.1 %sat (0.0-9.0); ARTERIAL BLOOD GAS HCO3 19.5 mmol/L; ARTERIAL BLOOD GAS MET HB 0.8 %sat (0.0-2.0); ARTERIAL BLOOD GAS PCO2 26.6 mmHg (35.0-45.0); ARTERIAL BLOOD GAS pH 7.473 (7.350-7.450)
[2017-06-05 04:50] LABS: ARTERIAL BLOOD GAS ALLEN TEST NORMAL; ARTERIAL BLOOD GAS ART SITE RIGHT RADIAL; ARTERIAL BLOOD GAS VENT MODE AC; ARTERIAL DRAW? YES
[2017-06-05 05:02] LABS: ALBUMIN SERUM 2.2 g/dL (3.5-5.0); BILIRUBIN,TOTAL 0.9 mg/dL (0.2-2.0); BUN/CREATININE RATIO 33.33; CALCIUM SERUM 7.8 mg/dL (8.4-10.2); CREATININE SERUM 0.9 mg/dL (0.6-1.4); GLOM FILT RATE Estimated 69.5 mL/min (>60); POTASSIUM 3.8 mmol/L (3.5-5.1); PROTEIN TOTAL SERUM 6.1 g/dL (6.0-8.3)
[2017-06-05 05:42] LABS: BASOPHIL# 0.1 X10e3 (0-0.3); BASOPHIL% 0.4 % (0-2.5); EOSINOPHIL# 0.1 X10e3 (0-0.7); EOSINOPHIL% 0.4 % (0.0-7.0); HEMATOCRIT 26.9 % (35.0-45.0); HEMOGLOBIN 8.3 gm/dL (12.0-16.0); LYMPHOCYTE# 4.2 X10e3 (1.0-3.5); LYMPHOCYTE% 15.1 % (17.0-45.0); MEAN CELL VOLUME 73.4 FL (83-96); MEAN CORPUSCULAR HEMOGLOBIN 22.7 PG (28-34); MEAN CORPUSCULAR HGB CONC 30.9 g/dL (30-36); MEAN PLATELET VOLUME 9.6 FL (6.5-11.5); MONOCYTE# 3.1 X10e3 (0-1.0); NEUTROPHIL# 20.5 X10e3 (1.5-7.1); NEUTROPHIL% 73.1 % (40-75); RED BLOOD COUNT 3.66 X10e (3.90-5.30); RED CELL DISTRIBUTION WIDTH 23.9 % (11.0-15.5)
[2017-06-05 05:59] LABS: CALCIUM SERUM 7.8 mg/dL (8.4-10.2); CREATININE SERUM 0.8 mg/dL (0.6-1.4); GLOM FILT RATE Estimated 80.2 mL/min (>60); PHOSPHOROUS 3.6 mg/dL (2.5-4.6); POTASSIUM 3.9 mmol/L (3.5-5.1)
[2017-06-05 07:59] LABS: DIFF IND YES; PLATELET COUNT 205 X10e3 (140-420)
[2017-06-05 08:02] LABS: ANISOCYTOSIS MOD; HYPOCHROMIA MOD; PLATELET ESTIMATE NORMAL (NORMAL)
[2017-06-05 08:03] LABS: MICROCYTOSIS SL
[2017-06-05 11:12] LABS: HEMATOCRIT 28.3 % (35.0-45.0); HEMOGLOBIN 8.8 gm/dL (12.0-16.0); MEAN CELL VOLUME 75.6 FL (83-96); MEAN CORPUSCULAR HEMOGLOBIN 23.4 PG (28-34); MEAN PLATELET VOLUME 9.4 FL (6.5-11.5); RED BLOOD COUNT 3.75 X10e (3.90-5.30); RED CELL DISTRIBUTION WIDTH 24.1 % (11.0-15.5); WHITE BLOOD COUNT 20.9 X10e3 (4.0-10.5)
[2017-06-05 11:28] LABS: CALCIUM SERUM 7.6 mg/dL (8.4-10.2); CREATININE SERUM 0.7 mg/dL (0.6-1.4); GLOM FILT RATE Estimated 94.2 mL/min (>60); POTASSIUM 3.5 mmol/L (3.5-5.1)
[2017-06-05 11:50] LABS: MAGNESIUM 1.8 mg/dL (1.6-3.0); PHOSPHOROUS 3.1 mg/dL (2.5-4.6)
[2017-06-05 11:54] LABS: CK TOTAL 30 IU/L (26-140)
[2017-06-05 16:32] LABS: BUN/CREATININE RATIO 28.75; CALCIUM SERUM 7.4 mg/dL (8.4-10.2); CREATININE SERUM 0.8 mg/dL (0.6-1.4); GLOM FILT RATE Estimated 80.2 mL/min (>60); PHOSPHOROUS 3.1 mg/dL (2.5-4.6); POTASSIUM 3.6 mmol/L (3.5-5.1)
[2017-06-06 03:19] LABS: BASOPHIL# 0.1 X10e3 (0-0.3); BASOPHIL% 0.4 % (0-2.5); EOSINOPHIL# 0.2 X10e3 (0-0.7); EOSINOPHIL% 0.9 % (0.0-7.0); HEMATOCRIT 27.8 % (35.0-45.0); HEMOGLOBIN 8.4 gm/dL (12.0-16.0); LYMPHOCYTE% 14.9 % (17.0-45.0); MEAN CELL VOLUME 76.9 FL (83-96); MEAN CORPUSCULAR HEMOGLOBIN 23.2 PG (28-34); MEAN CORPUSCULAR HGB CONC 30.2 g/dL (30-36); MEAN PLATELET VOLUME 9.3 FL (6.5-11.5); MONOCYTE# 2.4 X10e3 (0-1.0); MONOCYTE% 12.4 % (3.0-12.0); NEUTROPHIL# 14.1 X10e3 (1.5-7.1); NEUTROPHIL% 71.4 % (40-75); PLATELET COUNT 241 X10e3 (140-420); RED BLOOD COUNT 3.61 X10e (3.90-5.30); RED CELL DISTRIBUTION WIDTH 23.8 % (11.0-15.5); WHITE BLOOD COUNT 19.8 X10e3 (4.0-10.5)
[2017-06-06 03:20] LABS: DIFF IND NO
[2017-06-06 03:27] LABS: INR 1.1
[2017-06-06 03:42] LABS: ALBUMIN SERUM 2.2 g/dL (3.5-5.0); BILIRUBIN,TOTAL 0.8 mg/dL (0.2-2.0); BUN/CREATININE RATIO 27.5; CALCIUM SERUM 7.7 mg/dL (8.4-10.2); CREATININE SERUM 0.8 mg/dL (0.6-1.4); GLOM FILT RATE Estimated 80.2 mL/min (>60); POTASSIUM 3.6 mmol/L (3.5-5.1); PROTEIN TOTAL SERUM 6.1 g/dL (6.0-8.3)
[2017-06-06 04:09] LABS: CHOLESTEROL 100 mg/dL (0-200); HDL CHOLESTEROL 9 mg/dL (35-95); LDL CHOLESTEROL 62 mg/dL (-130); LDL/HDL RATIO 7 RATIO (0-4); TRIGLYCERIDES 147 mg/dL (10-160)
[2017-06-06 04:13] LABS: ARTERIAL BLD GAS O2 SATURATION 92.9 % (90.0-100.0); ARTERIAL BLOOD GAS CARBOXY HB 1.3 %sat (0.0-9.0); ARTERIAL BLOOD GAS HCO3 20.4 mmol/L; ARTERIAL BLOOD GAS PCO2 32.1 mmHg (35.0-45.0)
[2017-06-06 04:17] LABS: ARTERIAL BLOOD GAS ALLEN TEST NORMAL; ARTERIAL BLOOD GAS ART SITE RIGHT RADIAL; ARTERIAL BLOOD GAS DELIVERY VENT; ARTERIAL BLOOD GAS PO2 69.2 mmHg (80.0-100); ARTERIAL BLOOD GAS VENT MODE AC; ARTERIAL DRAW? YES
[2017-06-06 10:35] LABS: MAGNESIUM 1.8 mg/dL (1.6-3.0); PHOSPHOROUS 3.2 mg/dL (2.5-4.6)
[2017-06-07 03:52] LABS: ARTERIAL BLD GAS O2 SATURATION 94.6 % (90.0-100.0); ARTERIAL BLOOD GAS HCO3 18.2 mmol/L; ARTERIAL BLOOD GAS PCO2 30.6 mmHg (35.0-45.0); ARTERIAL BLOOD GAS PO2 82.2 mmHg (80.0-100); ARTERIAL BLOOD GAS pH 7.384 (7.350-7.450)
[2017-06-07 03:56] LABS: ARTERIAL BLOOD GAS ALLEN TEST NORMAL; ARTERIAL BLOOD GAS ART SITE LEFT RADIAL; ARTERIAL BLOOD GAS DELIVERY VENT; ARTERIAL BLOOD GAS VENT MODE PRVC; ARTERIAL DRAW? YES
[2017-06-07 04:32] LABS: BASOPHIL# 0.1 X10e3 (0-0.3); BASOPHIL% 0.4 % (0-2.5); EOSINOPHIL# 0.1 X10e3 (0-0.7); EOSINOPHIL% 0.6 % (0.0-7.0); HEMATOCRIT 22.6 % (35.0-45.0); HEMOGLOBIN 7.1 gm/dL (12.0-16.0); LYMPHOCYTE# 2.2 X10e3 (1.0-3.5); LYMPHOCYTE% 15.2 % (17.0-45.0); MEAN CELL VOLUME 76.1 FL (83-96); MEAN CORPUSCULAR HEMOGLOBIN 23.7 PG (28-34); MEAN CORPUSCULAR HGB CONC 31.2 g/dL (30-36); MEAN PLATELET VOLUME 8.6 FL (6.5-11.5); MONOCYTE# 1.7 X10e3 (0-1.0); MONOCYTE% 11.9 % (3.0-12.0); NEUTROPHIL# 10.6 X10e3 (1.5-7.1); NEUTROPHIL% 71.9 % (40-75); PLATELET COUNT 183 X10e3 (140-420); RED BLOOD COUNT 2.97 X10e (3.90-5.30); WHITE BLOOD COUNT 14.7 X10e3 (4.0-10.5)
[2017-06-07 04:33] LABS: DIFF IND NO
[2017-06-07 04:48] LABS: ALBUMIN SERUM 1.9 g/dL (3.5-5.0); BILIRUBIN,TOTAL 0.2 mg/dL (0.2-2.0); BUN/CREATININE RATIO 22.22; CALCIUM SERUM 6.9 mg/dL (8.4-10.2); CREATININE SERUM 0.9 mg/dL (0.6-1.4); GLOM FILT RATE Estimated 69.5 mL/min (>60); MAGNESIUM 1.7 mg/dL (1.6-3.0); PHOSPHOROUS 3.4 mg/dL (2.5-4.6); POTASSIUM 3.2 mmol/L (3.5-5.1); PROTEIN TOTAL SERUM 5.6 g/dL (6.0-8.3)
[2017-06-08 04:22] LABS: ARTERIAL BLD GAS O2 SATURATION 96.4 % (90.0-100.0); ARTERIAL BLOOD GAS CARBOXY HB 1.1 %sat (0.0-9.0); ARTERIAL BLOOD GAS HCO3 20.7 mmol/L; ARTERIAL BLOOD GAS MET HB 0.6 %sat (0.0-2.0); ARTERIAL BLOOD GAS PO2 91.6 mmHg (80.0-100); ARTERIAL BLOOD GAS pH 7.406 (7.350-7.450)
[2017-06-08 04:23] LABS: ARTERIAL BLOOD GAS ALLEN TEST NORMAL; ARTERIAL BLOOD GAS ART SITE RIGHT RADIAL; ARTERIAL BLOOD GAS DELIVERY VENT; ARTERIAL BLOOD GAS VENT MODE PRVC; ARTERIAL DRAW? YES
[2017-06-08 05:43] LABS: BASOPHIL# 0.1 X10e3 (0-0.3); BASOPHIL% 0.6 % (0-2.5); EOSINOPHIL# 0.2 X10e3 (0-0.7); EOSINOPHIL% 1.1 % (0.0-7.0); HEMATOCRIT 26.1 % (35.0-45.0); HEMOGLOBIN 7.9 gm/dL (12.0-16.0); LYMPHOCYTE# 2.7 X10e3 (1.0-3.5); LYMPHOCYTE% 17.8 % (17.0-45.0); MEAN CORPUSCULAR HGB CONC 30.3 g/dL (30-36); MONOCYTE# 1.9 X10e3 (0-1.0); MONOCYTE% 12.9 % (3.0-12.0); NEUTROPHIL% 67.6 % (40-75); PLATELET COUNT 212 X10e3 (140-420); RED CELL DISTRIBUTION WIDTH 24.2 % (11.0-15.5); WHITE BLOOD COUNT 14.9 X10e3 (4.0-10.5)
[2017-06-08 05:48] LABS: MEAN CELL VOLUME 79.2 FL (83-96)
[2017-06-08 05:51] LABS: DIFF IND NO
[2017-06-08 05:58] LABS: ALBUMIN SERUM 1.9 g/dL (3.5-5.0); BILIRUBIN,TOTAL 0.3 mg/dL (0.2-2.0); BUN/CREATININE RATIO 21.42; CREATININE SERUM 0.7 mg/dL (0.6-1.4); GLOM FILT RATE Estimated 94.2 mL/min (>60); MAGNESIUM 1.5 mg/dL (1.6-3.0); PHOSPHOROUS 3.2 mg/dL (2.5-4.6); POTASSIUM 3.4 mmol/L (3.5-5.1); PROTEIN TOTAL SERUM 5.7 g/dL (6.0-8.3)
[2017-06-09 04:35] LABS: ARTERIAL BLD GAS O2 SATURATION 94.9 % (90.0-100.0); ARTERIAL BLOOD GAS CARBOXY HB 1.2 %sat (0.0-9.0); ARTERIAL BLOOD GAS HCO3 23.7 mmol/L; ARTERIAL BLOOD GAS MET HB 0.7 %sat (0.0-2.0); ARTERIAL BLOOD GAS PCO2 49.2 mmHg (35.0-45.0); ARTERIAL BLOOD GAS PO2 83.4 mmHg (80.0-100)
[2017-06-09 04:38] LABS: ARTERIAL BLOOD GAS ALLEN TEST NORMAL; ARTERIAL BLOOD GAS ART SITE LEFT RADIAL; ARTERIAL BLOOD GAS DELIVERY VENT; ARTERIAL BLOOD GAS VENT MODE AC; ARTERIAL DRAW? YES
[2017-06-09 05:57] LABS: BASOPHIL# 0.1 X10e3 (0-0.3); BASOPHIL% 0.5 % (0-2.5); EOSINOPHIL# 0.3 X10e3 (0-0.7); HEMATOCRIT 26.7 % (35.0-45.0); LYMPHOCYTE# 1.9 X10e3 (1.0-3.5); LYMPHOCYTE% 13.5 % (17.0-45.0); MEAN CELL VOLUME 80.2 FL (83-96); MEAN CORPUSCULAR HEMOGLOBIN 24.1 PG (28-34); MEAN PLATELET VOLUME 8.9 FL (6.5-11.5); MONOCYTE# 1.6 X10e3 (0-1.0); MONOCYTE% 10.9 % (3.0-12.0); NEUTROPHIL# 10.4 X10e3 (1.5-7.1); NEUTROPHIL% 73.1 % (40-75); PLATELET COUNT 247 X10e3 (140-420); RED BLOOD COUNT 3.32 X10e (3.90-5.30); RED CELL DISTRIBUTION WIDTH 24.3 % (11.0-15.5); WHITE BLOOD COUNT 14.2 X10e3 (4.0-10.5)
[2017-06-09 06:15] LABS: DIFF IND NO
[2017-06-09 06:31] LABS: ALBUMIN SERUM 1.9 g/dL (3.5-5.0); BILIRUBIN,TOTAL 0.3 mg/dL (0.2-2.0); CALCIUM SERUM 7.3 mg/dL (8.4-10.2); CREATININE SERUM 0.5 mg/dL (0.6-1.4); GLOM FILT RATE Estimated 105.2 mL/min (>60); MAGNESIUM 1.4 mg/dL (1.6-3.0); PHOSPHOROUS 2.9 mg/dL (2.5-4.6)
[2017-06-09 06:40] LABS: POTASSIUM 2.9 mmol/L (3.5-5.1)
[2017-06-10 04:31] LABS: ARTERIAL BLOOD GAS PCO2 54.1 mmHg (35.0-45.0); ARTERIAL BLOOD GAS pH 7.305 (7.350-7.450)
[2017-06-10 04:32] LABS: ARTERIAL BLD GAS O2 SATURATION 95.8 % (90.0-100.0); ARTERIAL BLOOD GAS ALLEN TEST NORMAL; ARTERIAL BLOOD GAS ART SITE LEFT RADIAL; ARTERIAL BLOOD GAS CARBOXY HB 1.1 %sat (0.0-9.0); ARTERIAL BLOOD GAS DELIVERY VENT; ARTERIAL BLOOD GAS HCO3 26.9 mmol/L; ARTERIAL BLOOD GAS MET HB 0.8 %sat (0.0-2.0); ARTERIAL BLOOD GAS PO2 81.6 mmHg (80.0-100); ARTERIAL BLOOD GAS VENT MODE PRVC-AC; ARTERIAL DRAW? YES
[2017-06-10 05:50] LABS: BASOPHIL# 0.1 X10e3 (0-0.3); BASOPHIL% 0.7 % (0-2.5); EOSINOPHIL# 0.3 X10e3 (0-0.7); EOSINOPHIL% 2.5 % (0.0-7.0); HEMATOCRIT 25.5 % (35.0-45.0); HEMOGLOBIN 7.7 gm/dL (12.0-16.0); LYMPHOCYTE# 1.4 X10e3 (1.0-3.5); MEAN CELL VOLUME 80.1 FL (83-96); MEAN CORPUSCULAR HEMOGLOBIN 24.3 PG (28-34); MEAN CORPUSCULAR HGB CONC 30.3 g/dL (30-36); MONOCYTE% 8.9 % (3.0-12.0); NEUTROPHIL# 8.1 X10e3 (1.5-7.1); NEUTROPHIL% 74.9 % (40-75); PLATELET COUNT 271 X10e3 (140-420); RED BLOOD COUNT 3.18 X10e (3.90-5.30); RED CELL DISTRIBUTION WIDTH 24.5 % (11.0-15.5); WHITE BLOOD COUNT 10.7 X10e3 (4.0-10.5)
[2017-06-10 05:52] LABS: DIFF IND NO
[2017-06-10 06:34] LABS: ALBUMIN SERUM 1.7 g/dL (3.5-5.0); BILIRUBIN,TOTAL 0.1 mg/dL (0.2-2.0); CALCIUM SERUM 7.5 mg/dL (8.4-10.2); CREATININE SERUM 0.5 mg/dL (0.6-1.4); GLOM FILT RATE Estimated 105.2 mL/min (>60); POTASSIUM 3.8 mmol/L (3.5-5.1); PROTEIN TOTAL SERUM 5.5 g/dL (6.0-8.3)
[2017-06-11 04:59] LABS: ARTERIAL BLD GAS O2 SATURATION 95.6 % (90.0-100.0); ARTERIAL BLOOD GAS CARBOXY HB 1.3 %sat (0.0-9.0); ARTERIAL BLOOD GAS HCO3 31.3 mmol/L; ARTERIAL BLOOD GAS MET HB 0.6 %sat (0.0-2.0); ARTERIAL BLOOD GAS PCO2 44.8 mmHg (35.0-45.0); ARTERIAL BLOOD GAS PO2 83.9 mmHg (80.0-100); ARTERIAL BLOOD GAS pH 7.453 (7.350-7.450)
[2017-06-11 05:01] LABS: ARTERIAL BLOOD GAS ALLEN TEST NORMAL; ARTERIAL BLOOD GAS ART SITE RIGHT RADIAL; ARTERIAL BLOOD GAS DELIVERY VENT; ARTERIAL BLOOD GAS VENT MODE PRVC; ARTERIAL DRAW? YES
[2017-06-11 06:18] LABS: BASOPHIL# 0.1 X10e3 (0-0.3); BASOPHIL% 0.8 % (0-2.5); EOSINOPHIL# 0.1 X10e3 (0-0.7); EOSINOPHIL% 1.5 % (0.0-7.0); HEMATOCRIT 23.5 % (35.0-45.0); HEMOGLOBIN 7.2 gm/dL (12.0-16.0); LYMPHOCYTE% 21.5 % (17.0-45.0); MEAN CELL VOLUME 78.9 FL (83-96); MEAN CORPUSCULAR HEMOGLOBIN 24.2 PG (28-34); MEAN CORPUSCULAR HGB CONC 30.6 g/dL (30-36); MEAN PLATELET VOLUME 8.8 FL (6.5-11.5); MONOCYTE# 0.8 X10e3 (0-1.0); MONOCYTE% 8.8 % (3.0-12.0); NEUTROPHIL# 6.4 X10e3 (1.5-7.1); NEUTROPHIL% 67.4 % (40-75); PLATELET COUNT 302 X10e3 (140-420); RED BLOOD COUNT 2.98 X10e (3.90-5.30); RED CELL DISTRIBUTION WIDTH 24.7 % (11.0-15.5); WHITE BLOOD COUNT 9.5 X10e3 (4.0-10.5)
[2017-06-11 06:28] LABS: DIFF IND YES
[2017-06-11 07:13] LABS: HYPOCHROMIA MOD; PLATELET ESTIMATE NORMAL (NORMAL)
[2017-06-11 07:14] LABS: POLYCHROMASIA SL; SCHISTOCYTES PRESENT
[2017-06-11 07:20] LABS: ALBUMIN SERUM 1.9 g/dL (3.5-5.0); BILIRUBIN,TOTAL 0.4 mg/dL (0.2-2.0); CREATININE SERUM 0.5 mg/dL (0.6-1.4); GLOM FILT RATE Estimated 105.2 mL/min (>60); MAGNESIUM 1.5 mg/dL (1.6-3.0); PROTEIN TOTAL SERUM 5.9 g/dL (6.0-8.3)
[2017-06-11 08:00] LABS: POTASSIUM 2.6 mmol/L (3.5-5.1)
[2017-06-11 15:10] LABS: MAGNESIUM 1.7 mg/dL (1.6-3.0)
[2017-06-12 03:58] LABS: ARTERIAL BLD GAS O2 SATURATION 96.8 % (90.0-100.0); ARTERIAL BLOOD GAS CARBOXY HB 1.2 %sat (0.0-9.0); ARTERIAL BLOOD GAS HCO3 31.6 mmol/L; ARTERIAL BLOOD GAS MET HB 0.7 %sat (0.0-2.0); ARTERIAL BLOOD GAS PCO2 35.8 mmHg (35.0-45.0); ARTERIAL BLOOD GAS PO2 97.5 mmHg (80.0-100); ARTERIAL BLOOD GAS pH 7.554 (7.350-7.450)
[2017-06-12 04:08] LABS: ARTERIAL BLOOD GAS ALLEN TEST NORMAL; ARTERIAL BLOOD GAS ART SITE LEFT RADIAL; ARTERIAL BLOOD GAS DELIVERY BIPAP 14/6; ARTERIAL DRAW? YES
[2017-06-12 06:36] LABS: BASOPHIL# 0.1 X10e3 (0-0.3); BASOPHIL% 0.9 % (0-2.5); EOSINOPHIL# 0.2 X10e3 (0-0.7); EOSINOPHIL% 1.4 % (0.0-7.0); HEMATOCRIT 28.4 % (35.0-45.0); HEMOGLOBIN 8.5 gm/dL (12.0-16.0); LYMPHOCYTE# 2.4 X10e3 (1.0-3.5); LYMPHOCYTE% 18.8 % (17.0-45.0); MEAN CELL VOLUME 79.2 FL (83-96); MEAN CORPUSCULAR HEMOGLOBIN 23.6 PG (28-34); MEAN CORPUSCULAR HGB CONC 29.8 g/dL (30-36); MEAN PLATELET VOLUME 8.8 FL (6.5-11.5); MONOCYTE# 0.9 X10e3 (0-1.0); MONOCYTE% 7.3 % (3.0-12.0); NEUTROPHIL# 9.2 X10e3 (1.5-7.1); NEUTROPHIL% 71.6 % (40-75); PLATELET COUNT 409 X10e3 (140-420); RED BLOOD COUNT 3.59 X10e (3.90-5.30); RED CELL DISTRIBUTION WIDTH 25.2 % (11.0-15.5); WHITE BLOOD COUNT 12.9 X10e3 (4.0-10.5)
[2017-06-12 06:37] LABS: DIFF IND NO
[2017-06-12 07:11] LABS: BILIRUBIN,TOTAL 0.5 mg/dL (0.2-2.0); CALCIUM SERUM 8.2 mg/dL (8.4-10.2); CREATININE SERUM 0.5 mg/dL (0.6-1.4); GLOM FILT RATE Estimated 105.2 mL/min (>60); MAGNESIUM 1.9 mg/dL (1.6-3.0); POTASSIUM 3.8 mmol/L (3.5-5.1); PROTEIN TOTAL SERUM 6.2 g/dL (6.0-8.3)
[2017-06-13 03:00] LABS: BASOPHIL# 0.1 X10e3 (0-0.3); BASOPHIL% 0.7 % (0-2.5); DIFF IND NO; EOSINOPHIL# 0.2 X10e3 (0-0.7); EOSINOPHIL% 1.2 % (0.0-7.0); HEMATOCRIT 25.3 % (35.0-45.0); HEMOGLOBIN 7.6 gm/dL (12.0-16.0); LYMPHOCYTE# 2.3 X10e3 (1.0-3.5); MEAN CELL VOLUME 78.6 FL (83-96); MEAN CORPUSCULAR HEMOGLOBIN 23.6 PG (28-34); MEAN CORPUSCULAR HGB CONC 30.1 g/dL (30-36); MEAN PLATELET VOLUME 8.4 FL (6.5-11.5); MONOCYTE# 0.9 X10e3 (0-1.0); MONOCYTE% 6.7 % (3.0-12.0); NEUTROPHIL# 9.3 X10e3 (1.5-7.1); NEUTROPHIL% 73.4 % (40-75); PLATELET COUNT 356 X10e3 (140-420); RED BLOOD COUNT 3.22 X10e (3.90-5.30); RED CELL DISTRIBUTION WIDTH 25.7 % (11.0-15.5); WHITE BLOOD COUNT 12.7 X10e3 (4.0-10.5)
[2017-06-13 03:03] LABS: BILIRUBIN,TOTAL 0.8 mg/dL (0.2-2.0); CALCIUM SERUM 7.8 mg/dL (8.4-10.2); CREATININE SERUM 0.5 mg/dL (0.6-1.4); GLOM FILT RATE Estimated 105.2 mL/min (>60); MAGNESIUM 2.1 mg/dL (1.6-3.0); POTASSIUM 3.4 mmol/L (3.5-5.1); PROTEIN TOTAL SERUM 6.3 g/dL (6.0-8.3)
[2017-06-13 04:03] LABS: ARTERIAL BLD GAS O2 SATURATION 95.9 % (90.0-100.0); ARTERIAL BLOOD GAS CARBOXY HB 1.2 %sat (0.0-9.0); ARTERIAL BLOOD GAS HCO3 30.8 mmol/L; ARTERIAL BLOOD GAS MET HB 0.7 %sat (0.0-2.0); ARTERIAL BLOOD GAS PCO2 35.5 mmHg (35.0-45.0); ARTERIAL BLOOD GAS pH 7.547 (7.350-7.450)
[2017-06-13 04:08] LABS: ARTERIAL BLOOD GAS ALLEN TEST NORMAL; ARTERIAL BLOOD GAS ART SITE RIGHT RADIAL; ARTERIAL BLOOD GAS DELIVERY BIPAP 14/6; ARTERIAL DRAW? YES
[2017-06-13 05:46] LABS: INR 1.1; PARTIAL THROMBOPLASTIN TIME 25.5 SECONDS (23.5-31.3); PROTHROMBIN TIME (PATIENT) 12.1 SECONDS (10.0-11.7)
[2017-06-13 14:14] LABS: HEMATOCRIT 22.7 % (35.0-45.0)
[2017-06-13 21:52] LABS: HEMATOCRIT 24.4 % (35.0-45.0); HEMOGLOBIN 7.5 gm/dL (12.0-16.0)
[2017-06-14 03:59] LABS: BASOPHIL# 0.1 X10e3 (0-0.3); BASOPHIL% 0.9 % (0-2.5); EOSINOPHIL# 0.2 X10e3 (0-0.7); EOSINOPHIL% 1.6 % (0.0-7.0); HEMATOCRIT 22.9 % (35.0-45.0); HEMOGLOBIN 7.3 gm/dL (12.0-16.0); LYMPHOCYTE# 2.7 X10e3 (1.0-3.5); LYMPHOCYTE% 24.5 % (17.0-45.0); MEAN CELL VOLUME 78.6 FL (83-96); MEAN CORPUSCULAR HGB CONC 31.8 g/dL (30-36); MONOCYTE% 9.2 % (3.0-12.0); NEUTROPHIL# 7.2 X10e3 (1.5-7.1); NEUTROPHIL% 63.8 % (40-75); PLATELET COUNT 356 X10e3 (140-420); RED BLOOD COUNT 2.91 X10e (3.90-5.30); RED CELL DISTRIBUTION WIDTH 24.5 % (11.0-15.5); WHITE BLOOD COUNT 11.2 X10e3 (4.0-10.5)
[2017-06-14 04:12] LABS: DIFF IND NO
[2017-06-14 04:23] LABS: ALBUMIN SERUM 1.9 g/dL (3.5-5.0); BILIRUBIN,TOTAL 0.7 mg/dL (0.2-2.0); CALCIUM SERUM 7.3 mg/dL (8.4-10.2); CREATININE SERUM 0.5 mg/dL (0.6-1.4); GLOM FILT RATE Estimated 105.2 mL/min (>60); POTASSIUM 3.8 mmol/L (3.5-5.1)
[2017-06-15 10:00] LABS: BASOPHIL# 0.1 X10e3 (0-0.3); BASOPHIL% 0.5 % (0-2.5); EOSINOPHIL# 0.2 X10e3 (0-0.7); EOSINOPHIL% 1.3 % (0.0-7.0); HEMATOCRIT 24.1 % (35.0-45.0); HEMOGLOBIN 7.6 gm/dL (12.0-16.0); LYMPHOCYTE# 3.2 X10e3 (1.0-3.5); LYMPHOCYTE% 21.1 % (17.0-45.0); MEAN CELL VOLUME 79.4 FL (83-96); MEAN CORPUSCULAR HEMOGLOBIN 25.1 PG (28-34); MEAN CORPUSCULAR HGB CONC 31.6 g/dL (30-36); MEAN PLATELET VOLUME 8.2 FL (6.5-11.5); MONOCYTE# 1.1 X10e3 (0-1.0); MONOCYTE% 7.3 % (3.0-12.0); NEUTROPHIL# 10.5 X10e3 (1.5-7.1); NEUTROPHIL% 69.8 % (40-75); PLATELET COUNT 452 X10e3 (140-420); RED BLOOD COUNT 3.03 X10e (3.90-5.30); RED CELL DISTRIBUTION WIDTH 24.7 % (11.0-15.5)
[2017-06-15 10:05] LABS: ALBUMIN SERUM 2.2 g/dL (3.5-5.0); BILIRUBIN,TOTAL 0.9 mg/dL (0.2-2.0); BUN/CREATININE RATIO 26.66; CALCIUM SERUM 7.7 mg/dL (8.4-10.2); CREATININE SERUM 0.6 mg/dL (0.6-1.4); GLOM FILT RATE Estimated 99.1 mL/min (>60); POTASSIUM 3.5 mmol/L (3.5-5.1); PROTEIN TOTAL SERUM 6.8 g/dL (6.0-8.3)
[2017-06-15 10:08] LABS: DIFF IND YES
[2017-06-15 11:53] LABS: URINE APPEARANCE CLOUDY; URINE BILIRUBIN NEG (NEG); URINE BLOOD 1+ (NEG); URINE COLOR DK YELLOW; URINE GLUCOSE NEG (NEG); URINE KETONE NEG (NEG); URINE LEUKOCYTE ESTERASE 2+ (NEG); URINE NITRATE POS (NEG); URINE PH 7.5 (5-8); URINE PROTEIN 1+ (NEG); URINE SPECIFIC GRAVITY 1.018 (1.003-1.035); URINE UROBILINOGEN 0.2 MG/DL (NEG)
[2017-06-15 11:54] LABS: URBCS1 AUWI 25-50 /[HPF] (0-2); URINE BACTERIA AUWI 4+ (NEGATIVE); URINE SQUAMOUS EPITHELIAL CELL OCC /[HPF]; UWBCS1 AUWI 50-100 (0-5)
[2017-06-15 12:19] LABS: ANISOCYTOSIS MOD; HYPERSEGMENTED POLYS PRESENT; HYPOCHROMIA MOD; PLATELET ESTIMATE INCREASED (NORMAL); ROULEAUX SLIGHT; TEAR DROP CELLS PRESENT
[2017-06-15 12:20] LABS: PAPPENHEIMER BODIES PRESENT
[2017-06-15 12:22] LABS: URINE MUCUS PRESENT; URINE YEAST PRESENT
[2017-06-15 12:23] LABS: URINE SPERM PRESENT
[2017-06-16 05:39] LABS: HEMATOCRIT 22.5 % (35.0-45.0); MEAN CELL VOLUME 80.2 FL (83-96); MEAN CORPUSCULAR HEMOGLOBIN 24.9 PG (28-34); MEAN CORPUSCULAR HGB CONC 31.1 g/dL (30-36); MEAN PLATELET VOLUME 8.3 FL (6.5-11.5); RED BLOOD COUNT 2.8 X10e (3.90-5.30); RED CELL DISTRIBUTION WIDTH 24.4 % (11.0-15.5); WHITE BLOOD COUNT 11.5 X10e3 (4.0-10.5)
[2017-06-16 06:20] LABS: ALBUMIN SERUM 2.1 g/dL (3.5-5.0); BILIRUBIN,TOTAL 0.5 mg/dL (0.2-2.0); BUN/CREATININE RATIO 23.33; CALCIUM SERUM 7.6 mg/dL (8.4-10.2); CREATININE SERUM 0.6 mg/dL (0.6-1.4); GLOM FILT RATE Estimated 99.1 mL/min (>60); POTASSIUM 3.5 mmol/L (3.5-5.1); PROTEIN TOTAL SERUM 6.3 g/dL (6.0-8.3)
[2017-06-16 07:08] LABS: URINE APPEARANCE CLOUDY; URINE BILIRUBIN NEG (NEG); URINE BLOOD TRACE (NEG); URINE COLOR DK YELLOW; URINE GLUCOSE NEG (NEG); URINE KETONE NEG (NEG); URINE LEUKOCYTE ESTERASE 3+ (NEG); URINE NITRATE POS (NEG); URINE PH 8.5 (5-8); URINE PROTEIN 1+ (NEG); URINE SPECIFIC GRAVITY 1.023 (1.003-1.035); URINE UROBILINOGEN 0.2 MG/DL (NEG)
[2017-06-16 07:11] LABS: CULTURE INDICATED? YES; URINE BACTERIA AUWI 4+ (NEGATIVE); URINE SQUAMOUS EPITHELIAL CELL NONE SEEN /[HPF]
[2017-06-16 07:28] LABS: U HYALINE CASTS AUWI 0-2 /[LPF]; URINE MUCUS PRESENT; UWBCS1 AUWI 100-200 (0-5)
[2017-06-17 05:21] LABS: HEMATOCRIT 25.1 % (35.0-45.0); HEMOGLOBIN 7.9 gm/dL (12.0-16.0); MEAN CELL VOLUME 81.8 FL (83-96); MEAN CORPUSCULAR HEMOGLOBIN 25.8 PG (28-34); MEAN CORPUSCULAR HGB CONC 31.6 g/dL (30-36); RED BLOOD COUNT 3.06 X10e (3.90-5.30); WHITE BLOOD COUNT 9.6 X10e3 (4.0-10.5)
[2017-06-17 05:58] LABS: BILIRUBIN,TOTAL 0.3 mg/dL (0.2-2.0); BUN/CREATININE RATIO 18.33; CALCIUM SERUM 7.7 mg/dL (8.4-10.2); CREATININE SERUM 0.6 mg/dL (0.6-1.4); GLOM FILT RATE Estimated 99.1 mL/min (>60); MAGNESIUM 1.9 mg/dL (1.6-3.0); POTASSIUM 3.7 mmol/L (3.5-5.1); PROTEIN TOTAL SERUM 6.3 g/dL (6.0-8.3)
[2017-06-18 05:50] LABS: BUN/CREATININE RATIO 11.66; CALCIUM SERUM 7.8 mg/dL (8.4-10.2); CREATININE SERUM 0.6 mg/dL (0.6-1.4); GLOM FILT RATE Estimated 99.1 mL/min (>60); MAGNESIUM 1.8 mg/dL (1.6-3.0); POTASSIUM 3.8 mmol/L (3.5-5.1)
[2017-06-18 05:53] LABS: HEMATOCRIT 26.8 % (35.0-45.0); HEMOGLOBIN 8.6 gm/dL (12.0-16.0); MEAN CELL VOLUME 80.8 FL (83-96); MEAN CORPUSCULAR HEMOGLOBIN 25.9 PG (28-34); MEAN CORPUSCULAR HGB CONC 32.1 g/dL (30-36); RED BLOOD COUNT 3.32 X10e (3.90-5.30); RED CELL DISTRIBUTION WIDTH 24.1 % (11.0-15.5); WHITE BLOOD COUNT 9.7 X10e3 (4.0-10.5)
[2017-06-19 06:03] LABS: HEMATOCRIT 26.7 % (35.0-45.0); HEMOGLOBIN 8.3 gm/dL (12.0-16.0); MEAN CELL VOLUME 82.7 FL (83-96); MEAN CORPUSCULAR HEMOGLOBIN 25.6 PG (28-34); RED BLOOD COUNT 3.23 X10e (3.90-5.30); RED CELL DISTRIBUTION WIDTH 23.7 % (11.0-15.5); WHITE BLOOD COUNT 9.1 X10e3 (4.0-10.5)
[2017-06-19 06:42] LABS: BUN/CREATININE RATIO 8.57; CALCIUM SERUM 7.7 mg/dL (8.4-10.2); CREATININE SERUM 0.7 mg/dL (0.6-1.4); GLOM FILT RATE Estimated 94.2 mL/min (>60); POTASSIUM 3.6 mmol/L (3.5-5.1)
[2017-06-21 05:27] LABS: HEMATOCRIT 28.7 % (35.0-45.0); HEMOGLOBIN 8.9 gm/dL (12.0-16.0); MEAN CELL VOLUME 82.3 FL (83-96); MEAN CORPUSCULAR HEMOGLOBIN 25.5 PG (28-34); MEAN PLATELET VOLUME 8.2 FL (6.5-11.5); RED BLOOD COUNT 3.48 X10e (3.90-5.30); RED CELL DISTRIBUTION WIDTH 24.8 % (11.0-15.5); WHITE BLOOD COUNT 7.9 X10e3 (4.0-10.5)
[2017-06-21 06:17] LABS: MAGNESIUM 1.7 mg/dL (1.6-3.0); POTASSIUM 3.4 mmol/L (3.5-5.1)
[2017-06-22 04:35] LABS: MAGNESIUM 1.7 mg/dL (1.6-3.0); POTASSIUM 3.5 mmol/L (3.5-5.1)
== END 2017-06-22 19:09 | DRG 853 ==
LOC: CED 08:52 → CEDOF 11:25 → C2A 11:25 → CEDOF 12:03 → CED 12:03 → CICCU3 18:58 → CEDOF 18:58 → CICCU3 06-05 06:34 → C2A 06-14 17:35
PROVIDERS: Emergency Medicine; Internal Medicine; Internal Medicine Cardiovascular Disease; Internal Medicine Pulmonary Disease; Nurse Practitioner
PROC: 5A1955Z Respiratory Ventilation, Greater than 96 Consecutive Hours (ICD-10-PCS; principal; 2017-06-04)
PROC: 0BH17EZ Insertion of Endotracheal Airway into Trachea, Via Natural or Artificial Opening (ICD-10-PCS; 2017-06-04)
PROC: 30233N1 Transfusion of Nonautologous Red Blood Cells into Peripheral Vein, Percutaneous Approach (ICD-10-PCS; 2017-06-04)
PROC: 05HM33Z Insertion of Infusion Device into Right Internal Jugular Vein, Percutaneous Approach (ICD-10-PCS; 2017-06-05)
PROC: 06L34CZ Occlusion of Esophageal Vein with Extraluminal Device, Percutaneous Endoscopic Approach (ICD-10-PCS; 2017-06-05 07:51)
PROC: 0B9F8ZX Drainage of Right Lower Lung Lobe, Via Natural or Artificial Opening Endoscopic, Diagnostic (ICD-10-PCS; 2017-06-08)
PROC: 0B9M8ZZ Drainage of Bilateral Lungs, Via Natural or Artificial Opening Endoscopic (ICD-10-PCS; 2017-06-08)
PROC: 0DH67UZ Insertion of Feeding Device into Stomach, Via Natural or Artificial Opening (ICD-10-PCS; 2017-06-08)
DX: A41.9 Sepsis, unspecified organism (principal); J96.01 Acute respiratory failure with hypoxia; G92 Toxic encephalopathy; J18.9 Pneumonia, unspecified organism; E43 Unspecified severe protein-calorie malnutrition; E13.10 Other specified diabetes mellitus with ketoacidosis without coma; J96.02 Acute respiratory failure with hypercapnia; I11.0 Hypertensive heart disease with heart failure; K81.0 Acute cholecystitis; J44.9 Chronic obstructive pulmonary disease, unspecified; I50.32 Chronic diastolic (congestive) heart failure; K92.1 Melena; D62 Acute posthemorrhagic anemia; N39.0 Urinary tract infection, site not specified; E87.1 Hypo-osmolality and hyponatremia; I85.10 Secondary esophageal varices without bleeding; K72.90 Hepatic failure, unspecified without coma; K75.81 Nonalcoholic steatohepatitis (NASH); F41.9 Anxiety disorder, unspecified; Z68.39 Body mass index [BMI] 39.0-39.9, adult; E87.6 Hypokalemia; E83.51 Hypocalcemia; F17.210 Nicotine dependence, cigarettes, uncomplicated; I27.2 Other secondary pulmonary hypertension; E78.5 Hyperlipidemia, unspecified; B96.20 Unspecified Escherichia coli [E. coli] as the cause of diseases classified elsewhere; I25.10 Atherosclerotic heart disease of native coronary artery without angina pectoris; K52.9 Noninfective gastroenteritis and colitis, unspecified; I48.0 Paroxysmal atrial fibrillation; E66.01 Morbid (severe) obesity due to excess calories; Z90.49 Acquired absence of other specified parts of digestive tract; Z96.651 Presence of right artificial knee joint; Z82.49 Family history of ischemic heart disease and other diseases of the circulatory system; Z79.82 Long term (current) use of aspirin; Z88.1 Allergy status to other antibiotic agents; Z91.040 Latex allergy status; K74.60 Unspecified cirrhosis of liver; G40.909 Epilepsy, unspecified, not intractable, without status epilepticus; E83.42 Hypomagnesemia
CPT/HCPCS: 36415; 36430; 36600; 70460; 71010; 74000; 74177; 74230; 76705; 80048; 80053; 80061; 80076; 81003; 82140; 82274; 82308; 82550; 82607; 82803; 82947; 83605; 83735; 83880; 84100; 84132; 84443; 84484; 85014; 85018; 85025; 85027; 85610; 85730; 86850; 86900; 86901; 86923; 87040; 87070; 87086; 87088; 87186; 87205; 87493; 92526; 92610; 92611; 93005; 93308; 94002; 94003; 94010; 94640; 94660; 94760; 94761; 96361; 96374; 96375; 97110; 97116; 97163; 97167; 97530; 97535; 99285; C9113; G8978-GP; G8979-GP; G8987-GO; G8988-GO; G8996-GN; G8997-GN; G8998-GN; J0330; J1450; J1630; J1644; J1815; J1940; J1956; J2060; J2250; J2354; J2543; J2916; J3010; J3370; J3420; J3475; J3490; P9016; Q9967

== ENCOUNTER 2017-07-29 11:15 | Inpatient (IN) | payer OTHER ==
[~2017-07-29] VITALS: Ht 162.6 cm; Wt 104.2 kg
--- NOTE | ~2017-07-29 | CR72 ---
[facility]. [facility] A Service of [facility] & [facility] RADIOLOGY TEXT RESULTS PATIENT: DAISY MILES LOCATION: [facility] 307-01 : [birth year] UNIT #: [id number] AGE: [address]: NICOL FERNANDO MD SEX: F ORDER DR: [id number] [facility] [address] [place], [place] [address] [id number] I MR#: [id number] Acc #: [id number] NAME: DAISY MILES. : 1955 SEX: F STUDY DATE/TIME: 07/29/2017 14:07 UNIT: [facility] ROOM: 417[address] STUDY DESCRIPTION: CR Chest Single View Portable Attending Physician: Nicol Fernando M.D. Ordering Physician: Steff Pérez M.D. Primary Care Physician: Irina Mclean M.D. MEDICAL IMAGING REPORT This report is preliminary unless electronic signature is present EXAM Portable chest 07/29 HISTORY Bilateral lower extremity swelling. Congestion, which is worse today. COMPARISON 06/22/2017 FINDINGS A portable view of the chest was obtained. The heart size and vascularity are normal and the lungs are clear. The bones are unremarkable. IMPRESSION No active disease. Dictated by... Cristo Rosas M.D. THIS IS AN ELECTRONICALLY VERIFIED REPORT Cristo Rosas M.D. at 07/29/2017 8:18 PM FEL/to TD: 07/29/2017 19:09 JOB #: [id number] MEDICAL IMAGING REPORT Page 1 of 1 COPY
--- NOTE | ~2017-07-29 | US136 ---
[facility] A Service of [facility] & [facility] RADIOLOGY TEXT RESULTS PATIENT: DAISY MILES LOCATION: [facility] 307- : [birth year] UNIT #: [id number] AGE: [address]: Augustine Haines MD SEX: F ORDER DR: [id number] [facility] [address] [place], [place] [address] [id number] I MR#: [id number] Acc #: [id number] NAME: DAISY MILES : 1955 SEX: F STUDY DATE/TIME: 08/02/2017 18:12 UNIT: [address] ROOM: [facility] STUDY DESCRIPTION: US U/L Ext [employer] Bilat Attending Physician: Augustine Haines M.D. Ordering Physician: Guerrero Sherman M.D. Primary Care Physician: Irina Mclean M.D. MEDICAL IMAGING REPORT This report is preliminary unless electronic signature is present EXAM Bilateral ankle-brachial indices HISTORY Peripheral vascular disease. Claudication, numbness and tingling in lower extremities for several months. FINDINGS Peak brachial pressures are 127 on the right and 116 on the left. At the right ankle, peak pressures are 131 dorsalis pedis and 128 posterior tibial, for an ankle-brachial index of 1.03 at the dorsalis pedis and 1.01 at the posterior tibial. The right great toe pressure is 126 for a toe - brachial index of 0.99. At the left ankle, peak pressures are 131 posterior tibial and 119 dorsalis pedis, for an ankle-brachial index of 1.03 at the posterior tibial and 0.94 at the dorsalis pedis. The left great toe pressure is 89 for a toe - brachial index of 0.70. IMPRESSION Normal examination. Normal ankle-brachial indices measuring 1.03 bilaterally. Dictated by... Amari Le M.D. THIS IS AN ELECTRONICALLY VERIFIED REPORT Amari Le M.D. at 08/03/2017 11:46 PM DFL/mar TD: 08/03/2017 10:30 [facility] A Service of [facility] & [facility] RADIOLOGY TEXT RESULTS PATIENT: DAISY MILES LOCATION: [facility] 307-01 : [birth year] UNIT #: [id number] AGE: [address]: Augustine Haines MD SEX: F ORDER DR: JOB #: [id number] MEDICAL IMAGING REPORT Page 1 of 1 COPY
--- NOTE | ~2017-07-29 | DS ---
Unit #: [id number] #: [id number] Patient: DAISY MILES [id number] [facility] [address] [place], [place] [address] [id number] I MR#: [id number] NAME: DAISY MILES. ROOM: [facility] Age: 62 Sex: F Admission Date: 07/29/2017 : 1955 Discharge Date: 08/03/2017 Attending Physician: Augustine Haines M.D. Primary Care Physician: Irina Mclean M.D. DISCHARGE SUMMARY DIAGNOSIS ON ADMISSION Cellulitis. DIAGNOSES ON DISCHARGE 1. Bilateral lower extremity cellulitis, possibly methicillin-resistant Staphylococcus aureus. 2. Bilateral leg swelling. 3. Congestive heart failure. 4. Hypertension. 5. Type 2 diabetes mellitus. 6. Seizure disorder. 7. History of meningioma and removal. 8. Pulmonary hypertension. 9. Chronic obstructive pulmonary disease. 10. Anemia. 11. History of esophageal varices. CONSULTATIONS Dr. Sherman in ID consultation. LABS AND PROCEDURES DONE IMAGING: Patient had a bilateral lower extremity venous Doppler done, which was negative. LABS: Creatinine is 0.5, sodium 135, potassium is 3.5. WBC is 5.2, hemoglobin is 9.5, platelet count is 171. Urinalysis did not reveal any white blood cells. Blood culture did not reveal any growth. CRP was 1.9. BNP was 113. HOSPITAL COURSE Cfazb-gysw-umm female [facility] with bilateral leg swelling and redness. Details are as per admission H and P. 1. Bilateral lower extremity cellulitis. Patient was treated with IV clindamycin initially, but she did not respond. Therefore, vancomycin was added, and infectious disease was consulted. Patient has responded well to treatment, and her erythema has improved. Patient also have lower extremity venous ulcers. She was seen by wound care. 2. Bilateral leg swelling. Patient has history of congestive heart failure, but it was compensated. She was treated with diuretics. PHYSICAL EXAMINATION GENERAL: Today, patient is comfortable, is not in any acute distress. Wants to go home. Unit #: [id number] #: [id number] Patient: DAISY MILES VITAL SIGNS: On physical examination, vital signs reveal temperature of 99.4. Pulse is 88 per minute. Respiratory rate is 16 per minute. Blood pressure 102/61. HEENT: HEENT examination revealed no conjunctival congestion. Sclera is nonicteric. NECK: Neck is supple. Trachea is central. RESPIRATORY: Respiratory examination revealed decreased breath sounds bilaterally. There are no wheezes or crackles. HEART: Heart is regular rate and rhythm. S1, S2. ABDOMEN: Abdomen is soft, nontender. Bowel sounds are present in all 4 quadrants. EXTREMITIES: The patient has plus pedal edema and has bilateral lower extremity erythema. There is a small open area. RECOMMENDATIONS ON DISCHARGE 1. Condition is stable. 2. Activity is as tolerated. DISCHARGE MEDICATIONS Medications are: 1. Tylenol 650 mg p.o. q.6 hours p.r.n. 2. Neurontin 100 mg p.o. t.i.d., which is a home medication. 3. Effexor 150 mg p.o. daily. 4. Seroquel 25 mg p.o. every evening. 5. Lopressor 25 mg p.o. t.i.d. 6. Januvia 5 mg p.o. daily. 7. Lasix 40 mg p.o. b.i.d. 8. Levemir 10 units subcu q.h.s. 9. Oxycodone. Patient was advised to continue home dose. 10. Spironolactone 25 mg p.o. b.i.d. 11. Protonix 40 mg p.o. daily. 12. Flexeril 10 mg p.o. q. evening. 13. Doxycycline 100 mg p.o. b.i.d. into one week. FOLLOWUP 1. Patient is advised to follow up with primary care physician in 1 week and have a CBC and BMP done. 2. Patient is advised to follow up with Dr. Sherman at [facility] on 08/04/2017. 3. Patient is advised to call primary care physician or go to ER is her condition changes. NOTE: The plan was discussed in detail with patient, who showed complete understanding. The plan was discussed with Dr. Sherman in detail. Please make note that total time spent was 35 minutes. Dictated by... Nazanin Nix TD: 08/03/2017 16:24 JOB #: [id number] Unit #: [id number] #: [id number] Patient: DAISY MILES DISCHARGE SUMMARY Page 1 of 1 X Augustine Haines MD DISCHARGE SUMMARY
--- NOTE | ~2017-07-29 | HP ---
Unit #: [id number] #: [id number] Patient: DASIY MILES [id number] [address] [place], [place] [address] [id number] I MR#: [id number] NAME: DAISY MILES ROOM: 61167 Age: 62 Sex: F Admission Date: 07/29/2017 : 1955 Attending Physician: Nicol Fernando M.D. Primary Care Physician: Irina Mclean M.D. HISTORY AND PHYSICAL CHIEF COMPLAINT Chief complaint is the bilateral lower extremity redness. HISTORY OF PRESENT ILLNESS The patient is a 62-year-old female with the past medical history of esophageal varices, nonalcoholic hepatitis, diabetes, coronary artery disease, CHF, hypertension, meningioma, COPD, gastroparesis, brought to the emergency room complaining of the bilateral lower extremity weakness associated with the redness. The patient was seen by the PCP on Tuesday and was started on doxycycline. The patient was referred to the ER at that time; however, the patient refused for the admission at that time. The patient took the oral antibiotic doxycycline without any improvement. The patient denies any fever, chills, nausea and vomiting. The patient denies any trauma to the leg. The patient has a lower extremity redness and swelling on the both lower extremities. Started with the left initially and then progressed to the right one PAST MEDICAL HISTORY History of an acute blood loss anemia, esophageal varices, coronary artery disease, congestive heart failure, hypertension, diabetes, seizures following meningioma removal, pulmonary hypertension, COPD with continued tobacco abuse. PAST SURGICAL HISTORY Cardiac catheterization, EGD, colonoscopy, appendectomy, cholecystectomy, right knee replacement, meningioma removal. SOCIAL HISTORY The patient lives with her mother and sister. She continues to smoke a pack of cigarettes daily. She denies alcohol. FAMILY HISTORY Notable for mother having hypertension. ALLERGIES Allergic to cephalosporin and latex. HOME MEDICATION Patient is on aspirin, Bumex, buspirone and Cartia XT, cyclobenzaprine, doxycycline, folic acid, furosemide, gabapentin, lactulose, Levemir and metoprolol and oxycodone and acetaminophen and oxymorphone, pantoprazole and spironolactone and Tradjenta and venlafaxine. Unit #: [id number] #: [id number] Patient: DAISY MILES REVIEW OF SYSTEMS Positive for swelling of the lower extremities. Positive for redness. Positive for tenderness and denies any chest pain, denies any nausea and vomiting, denies any fever. All other systems have been reviewed and are negative as mentioned in the HPI. PHYSICAL EXAMINATION GENERAL APPEARANCE: On examination patient is lying in a bed not in acute distress. VITALS: Temperature 97.9, pulse 113, respiratory rate 20, blood pressure 132/79, sating 99% at room air. HEAD: Atraumatic/normocephalic. HEENT: Pupils equal, round and reactive to light and accommodation, Extraocular movements are intact. NECK: Supple. LUNGS: Decreased air entry at the bases. HEART: Regular rate and rhythm. ABDOMEN: Soft. Positive bowel sounds. EXTREMITIES: Positive for swelling of the bilateral lower extremities and redness and tenderness. No open wounds. NEURO: Awake, alert and oriented. No gross focal motor deficit. DIAGNOSTIC STUDIES LAB DATA: UA shows trace leukocyte esterase and urine WBCs negative and INR is 1.1, BNP is 113, amylase 7 and sodium 138, potassium 3.5, chloride 106, bicarb 23, glucose 116, BUN 5, creatinine 0.4, calcium is 8, alkaline phosphatase 221, albumin 2.1 and WBCs 5.7, hemoglobin 10.7, hematocrit 33.6, platelets 237. ASSESSMENT AND PLAN 1. Cellulitis. 2. Leg edema. Plan to admit the patient to the observation with the telemetry, continue with the diuretics with the Lasix and check the venous Dopplers to rule out the thromboembolism and continue with the IV antibiotics with clindamycin and continue with the elastic stocking after the DVT is ruled out and further recommendations will follow. Dictated by Nazanin Li/john TD: 07/29/2017 19:09 JOB #: [id number] Unit #: [id number] #: [id number] Patient: DAISY MILES HISTORY AND PHYSICAL Page 1 of 1 X NICOL FERNANDO MD HISTORY AND PHYSICAL
--- NOTE | ~2017-07-29 | CO ---
Unit #: [id number] #: [id number] Patient: DAISY MILES [id number] [address] [place], [place] [address] [id number] MR#: [id number] NAME: DAISY MILES ROOM: 307 Age: 62 Sex: F Admission Date: 07/29/2017 : 1955 Attending Physician: Augustine Haines M.D. Primary Care Physician: Irina Mclean M.D. Requesting Physician: Augustine Haines M.D. CONSULTATION REPORT REASON FOR CONSULTATION Lower extremity cellulitis. HISTORY OF PRESENT ILLNESS Ms. Miles is a 62-year-old female with a past medical history significant for esophageal varices, nonalcoholic hepatitis, diabetes, coronary artery disease, CHF, hypertension, meningioma, COPD, gastroparesis who arrived to the emergency department with complaints of increasing lower extremity swelling, as well as redness. Per the patient, it had been going on for about 3 weeks. At that point she had tried to increase her doses on her diuretics. The swelling did not get any better, and the erythema continued, and she saw her PCP this past Tuesday where she was started on doxycycline. Her PCP had recommended for her to be admitted to the ER, which the patient later refused. She took the doxycycline for about 1 day without any improvement and decided to come into the emergency room. She has been started on clindamycin, Macrobid and vancomycin at this point. Blood cultures are currently negative, and we are now being consulted for further antibiotic management. The patient denies any fevers, chills, nausea or vomiting. She has had swelling like this previously in the past in her lower extremities. She said she was also recently admitted here into the hospital for GI bleeds. PAST MEDICAL HISTORY Past medical history includes acute blood loss anemia, esophageal varices, coronary artery disease, congestive heart failure, hypertension, diabetes, seizures, meningioma removal, pulmonary hypertension, COPD and tobacco abuse. PAST SURGICAL HISTORY Cardiac cath, EGD, colonoscopy, appendectomy, cholecystectomy, right knee replacement, meningeal removal. SOCIAL HISTORY The patient lives with her mother and sister. She is a current smoker. She denies any alcohol use. FAMILY HISTORY Family history is noncontributory. ALLERGIES Cephalosporin, which the patient says her lips and her tongue swell up when she takes cephalosporin, as well as Lasix. MEDICATIONS Unit #: [id number] #: [id number] Patient: DAISY MILES Current medications reviewed. Patient is currently on vancomycin, Macrobid and clindamycin. REVIEW OF SYSTEMS All negative except for those stated in the HPI. Most significant for lower extremity swelling and redness, as well as tenderness. The patient denies any fevers or chills. PHYSICAL EXAM GENERAL APPEARANCE: Alert and oriented 62-year-old obese female lying in bed, talkative, in no apparent distress. CURRENT VITAL SIGNS: Temperature is 98.0, heart rate 70, respirations 20, blood pressure 111/53. HEENT: Head is normocephalic. Pupils equal, round and reactive to light and accommodation. NECK: Neck is supple. LUNGS: Lungs are clear to auscultation, nonlabored. CARDIAC: Heart is regular rate. ABDOMEN: Abdomen is soft, nontender, positive bowel sounds. SKIN: Lower extremities with no open wounds or sores. Noted erythema and edema in bilateral lower legs. NEURO: Awake, alert and oriented. DIAGNOSTIC STUDIES LABORATORY DATA: Glucose is 63, BUN 7, creatinine 0.5, chloride 99. White count is 5.2, hemoglobin is 9.5, platelets are 171, sed rate is 72, CRP is 1.9. Urinalysis with trace leukocyte esterase, trace protein, negative blood, white count 0 to 2, no culture indicated. Blood cultures from July 29 are 2 of 2 with no growth. ASSESSMENT AND PLAN Exgis-mukb-for obese female with bilateral lower extremity cellulitis. Most likely would be a strep infection, although due to patient's allergies, will continue patient on IV vancomycin. Per patient, swelling does appear to be better. Would doubt that patient has a urinary tract infection. Will discontinue Macrobid. Will also discontinue clindamycin. Wound care is currently following. Will continue with local recommendations per them. Discussed with patient recommended removal of Becerra cath, which she is refusing at this time. Will monitor wounds and assess again tomorrow. Patient will be seen by Dr. Sherman who will have further recommendations later today. Dictated by... Lynsey Zaldivar APRN for Nazanin Viera/sd TD: 08/02/2017 11:06 JOB #: [id number] Unit #: [id number] #: [id number] Patient: DAISY MILES CONSULTATION REPORT Page 1 of 1 X X CONSULTATION REPORT
--- NOTE | ~2017-07-29 | BMI ---
[facility] Nutrition Therapy DATE: 07/30/17 Patient: DAISY Partida JD Physician: MARCELO Address: [address] [place] [address] Room/Bed: [address] [place] [address], Zip: [place] [address] Admit Date: 07/29/17 Date of : [birth year] Height: 5 4 Weight: 263 119.6 HIGH BMI NOTE: DX: 62 Y.O. FEMALE ADMITTED FOR CELLULITIS ANTHROPOMETRICS: 5'4", WT: 263# (120 KG), BMI: 45.1 DIET: HEALTHY HEART RECOMMENDATIONS: 1. RECOMMEND TO ADD CONSISENT CARBOHYDRATE TO CURRENT DIET ORDER ABOVE TO PROMOTE GRADUAL WEIGHT LOSS TOWARDS HEALTHY BMI (19.0-25.0) OR +/-10%IBW RD WILL F/U PER PROTOCOL Respectfully, MAIKOL ARORA MS, RD, LD [facility] cc: client file
--- NOTE | ~2017-07-29 | US84 ---
[id number] [facility]. [facility] [address] [place], [place] [address] [id number] I MR#: [id number] Acc #: [id number] NAME: DAISY MILES : 1955 SEX: F STUDY DATE/TIME: 07/29/2017 17:44 UNIT: [id number] ROOM: 307 STUDY DESCRIPTION: US LE Veins Complete Quan Stdy Attending Physician: Genaro Ellis M.D. Ordering Physician: Ed Doc Nazanin Carrington Primary Care Physician: Irina Mclean M.D. MEDICAL IMAGING REPORT This report is preliminary unless electronic signature is present EXAM Bilateral lower extremity venous ultrasound, 07/29/2017. HISTORY Evaluate for DVT. Bilateral leg swelling for a few weeks. Diabetes, hypertension, no blood thinners. FINDINGS Real-time ultrasonography. Bilateral lower extremities performed. Bishop-scale, color Doppler, Doppler pulse wave interrogation utilized. The bilateral common femoral, profunda femoris, femoral, popliteal, anterior tibial, posterior tibial and peroneal veins are patent with normal compressibility where anatomically possible and normal color Doppler interrogation demonstrating jcuc-[id number] flow. There is no evidence of deep or superficial vein thrombosis. The bilateral great saphenous veins are patent with normal compressibility and color Doppler interrogation as well. In the left popliteal fossa, there is a septated fluid collection measuring 6.68 cm x 1.68 cm x 4.01 cm, most consistent with synovial/Murguia's cyst given appearance and location. Clinical follow-up recommended. IMPRESSION 1. Lower extremity venous ultrasound shows no evidence of deep or superficial vein thrombosis in bilateral lower extremities at time of this examination. 2. Septated fluid collection in the left popliteal fossa measuring 6.68 cm x 1.68 cm x 4.01 cm. Appearance and location most suggestive of synovial/Murguia's cyst. Clinical follow up recommended. Dictated by... Gil Joshi M.D. THIS IS AN ELECTRONICALLY VERIFIED REPORT Gil Joshi M.D. at 08/01/2017 5:05 PM Meron TD: 07/30/2017 16:16 JOB #: [id number] MEDICAL IMAGING REPORT Page 1 of 1 COPY
[~2017-07-29 11:15] MED LIST changes: +LOPRESSOR PO
[2017-07-29 12:21] LABS: BASOPHIL# 0.1 X10e3 (0-0.3); EOSINOPHIL# 0.1 X10e3 (0-0.7); EOSINOPHIL% 1.3 % (0.0-7.0); HEMATOCRIT 33.6 % (35.0-45.0); HEMOGLOBIN 10.7 gm/dL (12.0-16.0); LYMPHOCYTE# 1.5 X10e3 (1.0-3.5); LYMPHOCYTE% 26.6 % (17.0-45.0); MEAN CELL VOLUME 79.7 FL (83-96); MEAN CORPUSCULAR HEMOGLOBIN 25.3 PG (28-34); MEAN CORPUSCULAR HGB CONC 31.7 g/dL (30-36); MEAN PLATELET VOLUME 7.3 FL (6.5-11.5); MONOCYTE# 0.5 X10e3 (0-1.0); MONOCYTE% 8.2 % (3.0-12.0); NEUTROPHIL# 3.6 X10e3 (1.5-7.1); NEUTROPHIL% 62.9 % (40-75); PLATELET COUNT 237 X10e3 (140-420); RED BLOOD COUNT 4.22 X10e (3.90-5.30); RED CELL DISTRIBUTION WIDTH 20.4 % (11.0-15.5); WHITE BLOOD COUNT 5.7 X10e3 (4.0-10.5)
[2017-07-29 12:25] LABS: DIFF IND NO
[2017-07-29 12:46] LABS: ALBUMIN SERUM 2.1 g/dL (3.5-5.0); BUN/CREATININE RATIO 12.5; CREATININE SERUM 0.4 mg/dL (0.6-1.4); GLOM FILT RATE Estimated 113.2 mL/min (>60); POTASSIUM 3.5 mmol/L (3.5-5.1); PROTEIN TOTAL SERUM 6.7 g/dL (6.0-8.3)
[2017-07-29 14:47] LABS: INR 1.1; PROTHROMBIN TIME (PATIENT) 12.1 SECONDS (10.0-11.7)
[2017-07-29 15:02] LABS: URINE SOURCE CLEAN CATCH
[2017-07-29 15:07] LABS: URINE APPEARANCE CLEAR; URINE BLOOD NEG (NEG); URINE COLOR DK YELLOW; URINE GLUCOSE NEG (NEG); URINE KETONE TRACE (NEG); URINE LEUKOCYTE ESTERASE TRACE (NEG); URINE NITRATE NEG (NEG); URINE PROTEIN TRACE (NEG); URINE SPECIFIC GRAVITY 1.022 (1.003-1.035)
[2017-07-29 15:10] LABS: URINE BACTERIA AUWI NEG (NEGATIVE); URINE SQUAMOUS EPITHELIAL CELL OCC /[HPF]; UWBCS1 AUWI 0-2 (0-5)
[2017-07-29 15:12] LABS: CULTURE INDICATED? NO; URINE BILIRUBIN NEG (NEG)
[2017-07-29] MEDS ORDERED: PATIENT'S PHARMACY (16:33)
[2017-07-29] MEDS ORDERED: DOXYCYCLINE HYC50 M1 PO (16:33)
[2017-07-29] MEDS ORDERED: FLEXERIL10 MG PO (16:34)
[2017-07-29] MEDS ORDERED: OXYCODONE-ACET1 EAC1 PO (16:34)
[2017-07-29] MEDS ORDERED: OXYMORPHONE HCL10 M1 PO (16:34)
[2017-07-29] MEDS ORDERED: LOPRESSOR PO (16:35)
[2017-07-29] MEDS ORDERED: SEROQUEL PO (16:35)
[2017-07-29] MEDS ORDERED: NEURONTIN100 MG PO (16:35)
[2017-07-29] MEDS ORDERED: MACROBID100 MG PO (16:35)
[2017-07-29] MEDS ORDERED: LASIX PO (16:35)
[2017-07-29] MEDS ORDERED: ALDACTONE PO (16:36)
[2017-07-29] MEDS ORDERED: PROTONIX PO (16:36)
[2017-07-29] MEDS ORDERED: EFFEXOR PO (16:36)
[2017-07-30] MEDS ORDERED: TRADJENTA5 MG PO (02:31)
[2017-07-30] MEDS ORDERED: LEVEMIR FL100 UNIT/1 SUBQ (02:32)
[2017-07-30 05:22] LABS: BASOPHIL# 0.1 X10e3 (0-0.3); BASOPHIL% 1.4 % (0-2.5); EOSINOPHIL# 0.2 X10e3 (0-0.7); EOSINOPHIL% 3.7 % (0.0-7.0); HEMOGLOBIN 9.4 gm/dL (12.0-16.0); LYMPHOCYTE# 1.7 X10e3 (1.0-3.5); LYMPHOCYTE% 33.1 % (17.0-45.0); MEAN CELL VOLUME 79.8 FL (83-96); MEAN CORPUSCULAR HGB CONC 32.6 g/dL (30-36); MEAN PLATELET VOLUME 7.2 FL (6.5-11.5); MONOCYTE# 0.4 X10e3 (0-1.0); MONOCYTE% 8.1 % (3.0-12.0); NEUTROPHIL# 2.8 X10e3 (1.5-7.1); NEUTROPHIL% 53.7 % (40-75); PLATELET COUNT 189 X10e3 (140-420); RED BLOOD COUNT 3.63 X10e (3.90-5.30); RED CELL DISTRIBUTION WIDTH 20.3 % (11.0-15.5); WHITE BLOOD COUNT 5.1 X10e3 (4.0-10.5)
[2017-07-30 05:28] LABS: DIFF IND NO
[2017-07-30 05:41] LABS: BUN/CREATININE RATIO 8.33; CALCIUM SERUM 7.6 mg/dL (8.4-10.2); CREATININE SERUM 0.6 mg/dL (0.6-1.4); GLOM FILT RATE Estimated 99.1 mL/min (>60); POTASSIUM 3.4 mmol/L (3.5-5.1)
[2017-07-31 05:59] LABS: HEMATOCRIT 28.6 % (35.0-45.0); HEMOGLOBIN 9.2 gm/dL (12.0-16.0); MEAN CELL VOLUME 80.2 FL (83-96); MEAN CORPUSCULAR HEMOGLOBIN 25.9 PG (28-34); MEAN CORPUSCULAR HGB CONC 32.3 g/dL (30-36); MEAN PLATELET VOLUME 7.5 FL (6.5-11.5); RED BLOOD COUNT 3.57 X10e (3.90-5.30); RED CELL DISTRIBUTION WIDTH 19.6 % (11.0-15.5); WHITE BLOOD COUNT 4.7 X10e3 (4.0-10.5)
[2017-07-31 06:48] LABS: CALCIUM SERUM 7.5 mg/dL (8.4-10.2); CREATININE SERUM 0.6 mg/dL (0.6-1.4); GLOM FILT RATE Estimated 99.1 mL/min (>60); POTASSIUM 3.4 mmol/L (3.5-5.1)
[2017-08-02 05:27] LABS: HEMATOCRIT 29.3 % (35.0-45.0); HEMOGLOBIN 9.5 gm/dL (12.0-16.0); MEAN CELL VOLUME 79.9 FL (83-96); MEAN CORPUSCULAR HEMOGLOBIN 25.9 PG (28-34); MEAN CORPUSCULAR HGB CONC 32.4 g/dL (30-36); MEAN PLATELET VOLUME 7.8 FL (6.5-11.5); RED BLOOD COUNT 3.67 X10e (3.90-5.30); RED CELL DISTRIBUTION WIDTH 20.2 % (11.0-15.5); WHITE BLOOD COUNT 5.2 X10e3 (4.0-10.5)
[2017-08-02 06:14] LABS: CALCIUM SERUM 7.8 mg/dL (8.4-10.2); CREATININE SERUM 0.5 mg/dL (0.6-1.4); GLOM FILT RATE Estimated 105.2 mL/min (>60); POTASSIUM 3.5 mmol/L (3.5-5.1)
[2017-08-03] MEDS ORDERED: LEVEMIR100 UNITS/ SUBQ (15:52)
[2017-08-03] MEDS ORDERED: TYLENOL325 M1 PO (15:53)
[2017-08-03] MEDS ORDERED: DESENEX45 G1 EXT (15:54)
== END 2017-08-03 18:15 | disposition home health service (06) | DRG 602 ==
LOC: CED 11:15 → C3A PCU 16:34 → CED 16:34 → C3A PCU 16:34 → CEDOF 16:34 → CED 17:02 → CEDOF 19:53 → C3A PCU 19:53
PROVIDERS: Emergency Medicine; Internal Medicine
DX: L03.116 Cellulitis of left lower limb (principal); E43 Unspecified severe protein-calorie malnutrition; I50.33 Acute on chronic diastolic (congestive) heart failure; I27.2 Other secondary pulmonary hypertension; K75.9 Inflammatory liver disease, unspecified; K74.60 Unspecified cirrhosis of liver; Z68.42 Body mass index [BMI] 45.0-49.9, adult; E11.9 Type 2 diabetes mellitus without complications; B95.62 Methicillin resistant Staphylococcus aureus infection as the cause of diseases classified elsewhere; D64.9 Anemia, unspecified; I11.0 Hypertensive heart disease with heart failure; L03.115 Cellulitis of right lower limb; I25.10 Atherosclerotic heart disease of native coronary artery without angina pectoris; F17.210 Nicotine dependence, cigarettes, uncomplicated; Z90.49 Acquired absence of other specified parts of digestive tract; Z96.651 Presence of right artificial knee joint; Z91.040 Latex allergy status; E66.9 Obesity, unspecified; G40.909 Epilepsy, unspecified, not intractable, without status epilepticus; Z79.4 Long term (current) use of insulin
CPT/HCPCS: 36415; 71010; 80048; 80053; 81003; 82150; 82947; 83880; 85025; 85027; 85610; 85652; 86140; 87040; 93922; 93970; 94760; 96365; 96366; 96375; 97110; 97116; 97162; 97166; 97530; 99285; G8978-GP; G8979-GP; G8987-GO; G8988-GO; G8989-GO; J1650; J2405; J3370